=== PATIENT | male | born 1975 | race Caucasian/White ===

== ENCOUNTER 2018-01-19 15:49 | Observation (INO) | payer BC ==
[~2018-01-19] VITALS: Ht 185.4 cm; Wt 136.1 kg
[2018-01-19] VITALS (10 sets, daily range): BP systolic 151–163; BP diastolic 81–107; PULSE 73–109; RESP 16–20; TEMP 97.1–98.1; O2SAT 96–97
[2018-01-19] MEDS ORDERED: SODIUM CHLORIDE 0.9% FLUSH 10 ML FLUSH IVF PRN (16:15)
[2018-01-19] MEDS ORDERED: CITA20TA4 PO (16:18)
[2018-01-19] MEDS ORDERED: OMEP40CA2 PO (16:18)
--- NOTE | 2018-01-19 16:28 | PD ---
HPI Chief Complaint: GI Complaint Time Seen by Provider: 16:04 Travel History International Travel<30 days: No Contact w/Intl Traveler<30days: No Traveled to known affect area: No History of Present Illness HPI Patient was seen and examined in the presence of a nurse at all times This is a 42-year-old male with no known past medical history who presents with multiple complaints. He states that about 4 days ago, he developed nausea and emesis. He did have maroon looking blood in his emesis. His last bout of emesis was 2 days ago. He also noted some bright red blood per rectum that was on the outside of the stool. This has not happened since yesterday. He states that he had crampy mid abdominal pain. He also states that over the last 3-4 days, he has had intermittent substernal chest tightness. He gets associated dyspnea and diaphoresis with it. He states that this is separate from his abdominal pain and does not occur when he is vomiting. He had an episode when he went to see his primary physician today and they referred him to the emergency department. He did have an EKG performed at the primary care physician's office. He states that he had been otherwise well without fever, chills, cough, congestion. No lower extremity edema or calf pain. No prior treatment. He states that he has mild chest tightness at this time. No difficulty breathing. PFSH Past Medical History Depression: Yes GERD: Yes Tetanus Vaccination: > 5 Years Influenza Vaccination: No Past Surgical History Tonsillectomy: Yes Social History Alcohol Use: Yes (4 DRINKS NIGHTLY) Tobacco Use: No Substance Use: No Allergies-Medications (Allergen,Severity, Reaction): Coded Allergies: No Known Allergies (Unverified , 01/19/18) Reported Meds & Prescriptions Reported Meds & Active Scripts Active Reported Citalopram (Citalopram Hydrobromide) 20 Mg Tab 20 Mg PO DAILY Omeprazole 40 Mg Cap 40 Mg PO DAILY Review of Systems Except as stated in HPI: all other systems reviewed are Neg Physical Exam Narrative GENERAL: Alert, well nourished, well appearing patient resting on the bed in no acute distress. Vital Signs reviewed SKIN: Focused skin assessment warm/dry. HEAD: Atraumatic. Normocephalic. EYES: Pupils equal and round. No scleral icterus. No injection or drainage. ENT: No nasal bleeding or discharge. Mucous membranes pink and moist. NECK: Trachea midline. No JVD. Spontaneous, painless full range of motion with no meningismus CARDIOVASCULAR: Regular rate and rhythm. No murmur appreciated. Extremities warm and well perfused with bounding peripheral pulses RESPIRATORY: No accessory muscle use. Clear to auscultation. Breath sounds equal bilaterally. Breathing easily and speaking in full sentences GASTROINTESTINAL: Abdomen soft, non-tender, nondistended. Normal bowel sounds. No rigid, rebound, guarding. Rectal exam reveals normal tone, no obvious masses , light lewis stool. Heme-negative MUSCULOSKELETAL: No obvious deformities. No clubbing. No cyanosis. No edema. Compartments are soft NEUROLOGICAL: Awake and alert. No obvious cranial nerve deficits. Motor grossly within normal limits. Normal speech. Sensation intact. Normal gait PSYCHIATRIC: Appropriate mood and affect; insight and judgment normal. Data Data Last Documented VS Vital Signs Date Time Temp Pulse Resp B/P (MAP) Pulse Ox O2 Delivery O2 Flow Rate FiO2 01/19/18 19:05 86 16 151/81 (104) 97 Room Air 01/19/18 16:00 98.1 Orders Orders Electrocardiogram (01/19/18 16:15) Ckmb (Isoenzyme) Profile (01/19/18 16:15) Complete Blood Count With Diff (01/19/18 16:15) Comprehensive Metabolic Panel (01/19/18 16:15) Magnesium (Mg) (01/19/18 16:15) Prothrombin Time / Inr (Pt) (01/19/18 16:15) Act Partial Throm Time (Ptt) (01/19/18 16:15) Troponin I (01/19/18 16:15) Lipase (01/19/18 16:15) Ecg Monitoring (01/19/18 16:15) Iv Access Insert/Monitor (01/19/18 16:15) Oximetry (01/19/18 16:15) Sodium Chloride 0.9% Flush (Ns Flush) (01/19/18 16:15) Chest, Pa & Lat (01/19/18 16:15) Ct Abd/Pel W Iv Contrast(Rout) (01/19/18 16:15) Aspirin Chew (Aspirin Chew) (01/19/18 16:30) Nitroglycerin Sl (Nitrostat Sl) (01/19/18 16:30) CKMB (01/19/18 16:25) CKMB% (01/19/18 16:25) Iohexol 350 Inj (Omnipaque 350 Inj) (01/19/18 17:28) Us Abdomen Gallbladder (01/19/18 ) Pantoprazole Inj (Protonix Inj) (01/19/18 19:30) Admit Order (Ed Use Only) (01/19/18 20:08) Labs Laboratory Tests Test 01/19/18 16:25 White Blood Count 10.7 TH/MM3 Red Blood Count 4.93 MIL/MM3 Hemoglobin 16.2 GM/DL Hematocrit 46.8 % Mean Corpuscular Volume 95.0 FL Mean Corpuscular Hemoglobin 32.9 PG Mean Corpuscular Hemoglobin Concent 34.6 % Red Cell Distribution Width 12.9 % Platelet Count 254 TH/MM3 Mean Platelet Volume 7.6 FL Neutrophils (%) (Auto) 78.6 % Lymphocytes (%) (Auto) 13.0 % Monocytes (%) (Auto) 6.8 % Eosinophils (%) (Auto) 0.9 % Basophils (%) (Auto) 0.7 % Neutrophils # (Auto) 8.4 TH/MM3 Lymphocytes # (Auto) 1.4 TH/MM3 Monocytes # (Auto) 0.7 TH/MM3 Eosinophils # (Auto) 0.1 TH/MM3 Basophils # (Auto) 0.1 TH/MM3 CBC Comment DIFF FINAL Differential Comment Prothrombin Time 11.7 SEC Prothromb Time International Ratio 1.2 RATIO Activated Partial Thromboplast Time 25.0 SEC Blood Urea Nitrogen 10 MG/DL Creatinine 0.99 MG/DL Random Glucose 120 MG/DL Total Protein 8.6 GM/DL Albumin 4.0 GM/DL Calcium Level 9.3 MG/DL Magnesium Level 1.7 MG/DL Alkaline Phosphatase 118 U/L Aspartate Amino Transf (AST/SGOT) 137 U/L Alanine Aminotransferase (ALT/SGPT) 131 U/L Total Bilirubin 3.4 MG/DL Sodium Level 137 MEQ/L Potassium Level 3.2 MEQ/L Chloride Level 99 MEQ/L Carbon Dioxide Level 28.7 MEQ/L Anion Gap 9 MEQ/L Estimat Glomerular Filtration Rate 84 ML/MIN Total Creatine Kinase 107 U/L Creatine Kinase MB LESS THAN 0.5 NG/ML Troponin I LESS THAN 0.02 NG/ML Lipase 125 U/L MDM Medical Decision Making Medical Screen Exam Complete: Yes Emergency Medical Condition: Yes Medical Record Reviewed: Yes Interpretation(s) EKG performed at 16:17 shows sinus rhythm with a rate of 86. LVH. There is T- wave inversion in lateral leads. EKG was repeated at 16:41 and is unchanged. Last 24 hours Impressions Chest X-Ray 01/19/18 1615 Signed Impressions: Service Date/Time: January 16:47 - CONCLUSION: No acute disease. Carlyle Faith MD Abdomen/Pelvis CT 01/19/18 1615 Signed Impressions: Service Date/Time: January 17:19 - CONCLUSION: Normal examination. Alcon Barclay MD Gall Bladder Ultrasound 01/19/18 0000 Signed Impressions: Service Date/Time: January 18:40 - CONCLUSION: Enlarged fatty liver. Poor visualization of the pancreas due to shadowing bowel gas. Delfin Schuler MD Laboratory Tests Test 01/19/18 16:25 White Blood Count 10.7 TH/MM3 Red Blood Count 4.93 MIL/MM3 Hemoglobin 16.2 GM/DL Hematocrit 46.8 % Mean Corpuscular Volume 95.0 FL Mean Corpuscular Hemoglobin 32.9 PG Mean Corpuscular Hemoglobin Concent 34.6 % Red Cell Distribution Width 12.9 % Platelet Count 254 TH/MM3 Mean Platelet Volume 7.6 FL Neutrophils (%) (Auto) 78.6 % Lymphocytes (%) (Auto) 13.0 % Monocytes (%) (Auto) 6.8 % Eosinophils (%) (Auto) 0.9 % Basophils (%) (Auto) 0.7 % Neutrophils # (Auto) 8.4 TH/MM3 Lymphocytes # (Auto) 1.4 TH/MM3 Monocytes # (Auto) 0.7 TH/MM3 Eosinophils # (Auto) 0.1 TH/MM3 Basophils # (Auto) 0.1 TH/MM3 CBC Comment DIFF FINAL Differential Comment Prothrombin Time 11.7 SEC Prothromb Time International Ratio 1.2 RATIO Activated Partial Thromboplast Time 25.0 SEC Blood Urea Nitrogen 10 MG/DL Creatinine 0.99 MG/DL Random Glucose 120 MG/DL Total Protein 8.6 GM/DL Albumin 4.0 GM/DL Calcium Level 9.3 MG/DL Magnesium Level 1.7 MG/DL Alkaline Phosphatase 118 U/L Aspartate Amino Transf (AST/SGOT) 137 U/L Alanine Aminotransferase (ALT/SGPT) 131 U/L Total Bilirubin 3.4 MG/DL Sodium Level 137 MEQ/L Potassium Level 3.2 MEQ/L Chloride Level 99 MEQ/L Carbon Dioxide Level 28.7 MEQ/L Anion Gap 9 MEQ/L Estimat Glomerular Filtration Rate 84 ML/MIN Total Creatine Kinase 107 U/L Creatine Kinase MB LESS THAN 0.5 NG/ML Troponin I LESS THAN 0.02 NG/ML Lipase 125 U/L Differential Diagnosis Gastritis, peptic ulcer, Chrissy-Abrams tear, internal hemorrhoids, bowel obstruction, liver disease, unstable angina, musculoskeletal pain Narrative Course Patient was placed on the vascular surgeon. IV access was established. EKG showed T-wave inversion in the lateral leads. Repeat EKG was unchanged. We do not have a prior EKG to compare to. First troponin is normal. Patient had been having episodes of chest tightness with diaphoresis. Therefore, I felt that the benefit of aspirin outweighed the risk as he is heme-negative on my exam. He was given a nitroglycerin with resolution of pain. His labs reveal acute hepatic insufficiency. I am concerned regarding the patient's episode of chest pains but also am concerned about his hepatic insufficiency. Plan for admission for further evaluation and care. [facility] Point of Care Internal Pos. & Neg. Controls: Passed Fecal Specimen Occult Blood: Negative Physician Communication Physician Communication 8:15 PM: Spoke with the admitting hospitalist Diagnosis Primary Impression: Acute chest pain Additional Impression: Hepatic insufficiency Admitting Information Admitting Physician Requests: Randa Scott MD Jan 19, 2018 16:28
[2018-01-19] MEDS ORDERED: ASPIRIN 81 MG CHEW TAB PO ONE (16:30)
[2018-01-19] MEDS ORDERED: NITROGLYCERIN 0.4 MG SL 25 TABS/BTL SL ONE (16:30)
[2018-01-19 16:35] LABS: AUTOMATED NEUTROPHIL # 8.4 TH/MM3 (1.8-7.7); BASOPHIL # 0.1 TH/MM3 (0-0.2); BASOPHIL % 0.7 % (0.0-2.0); EOSINOPHIL # 0.1 TH/MM3 (0-0.4); EOSINOPHIL % 0.9 % (0.0-4.0); HEMATOCRIT 46.8 % (39.0-51.0); HEMOGLOBIN 16.2 GM/DL (13.0-17.0); LYMPHOCYTE # 1.4 TH/MM3 (1.0-4.8); MEAN CORPUSCULAR HEMOGLOBIN 32.9 PG (27.0-34.0); MEAN CORPUSCULAR HGB CONC 34.6 % (32.0-36.0); MEAN PLATELET VOLUME 7.6 FL (7.0-11.0); MONO % 6.8 % (0.0-8.0); MONOCYTE # 0.7 TH/MM3 (0-0.9); NEUT % 78.6 % (16.0-70.0); PLATELET COUNT 254 TH/MM3 (150-450); RED BLOOD COUNT 4.93 MIL/MM3 (4.50-5.90); RED CELL DISTRIBUTION WIDTH 12.9 % (11.6-17.2); WHITE BLOOD COUNT 10.7 TH/MM3 (4.0-11.0)
[2018-01-19 16:49] LABS: CHLORIDE 99 MEQ/L (98-107); SODIUM (NA) 137 MEQ/L (136-145)
[2018-01-19 16:52] LABS: CALCIUM 9.3 MG/DL (8.5-10.1)
[2018-01-19 16:53] LABS: BICARBONATE 28.7 MEQ/L (21.0-32.0); BLOOD UREA NITROGEN 10 MG/DL (7-18); GLUCOSE,RANDOM 120 MG/DL (74-106); MAGNESIUM 1.7 MG/DL (1.5-2.5)
[2018-01-19 16:56] LABS: ALT (GPT) 131 U/L (12-78); AST (GOT) 137 U/L (15-37); CREATININE 0.99 MG/DL (0.60-1.30); GLOMERULAR FILTRATION RATE 84 ML/MIN (>89)
[2018-01-19 16:57] LABS: TOTAL BILIRUBIN ADULT 3.4 MG/DL (0.2-1.0)
[2018-01-19 16:58] LABS: TOTAL PROTEIN 8.6 GM/DL (6.4-8.2)
[2018-01-19 16:59] LABS: ALKALINE PHOSPHATASE 118 U/L (45-117)
[2018-01-19 17:01] LABS: TROPONIN I LESS THAN 0.02 NG/ML (0.02-0.05)
[2018-01-19 17:04] LABS: INTERNATIONAL NORMALIZED RATIO 1.2 RATIO; PROTHROMBIN TIME - PATIENT 11.7 SEC (9.8-11.6)
--- NOTE | 2018-01-19 17:12 | RADRPT ---
EXAM DATE/TIME: 01/19/2018 16:47 [facility] COMPARISON: No previous studies available for comparison. INDICATIONS : Chest pain and vomitting blood. MEDICAL HISTORY : None. SURGICAL HISTORY : None. ENCOUNTER: Initial ACUITY: 4 - 6 days PAIN SCORE: 3/10 LOCATION: Bilateral chest FINDINGS: PA and lateral views of the chest demonstrate the lungs to be symmetrically aerated without evidence of mass, infiltrate or effusion. The cardiomediastinal contours are unremarkable. Osseous structure s are intact. CONCLUSION: No acute disease. Carlyle Faith MD on January 19, 2018 at 17:11 Board Certified Radiologist. This report was verified electronically.
[2018-01-19] MEDS ORDERED: IOHEXOL 350 MG/ML 10 ML VIAL (for RAD DIAG) IVCONTRAST ONE (17:28)
--- NOTE | 2018-01-19 17:37 | RADRPT ---
EXAM DATE/TIME: 01/19/2018 17:19 [facility] COMPARISON: No previous studies available for comparison. INDICATIONS : Periumbilical pain. Nausea. Hematemesis. Rectal bleeding. IV CONTRAST: 85 cc Omnipaque 350 (iohexol) IV ORAL CONTRAST: No oral contrast ingested. RADIATION DOSE: 22.38 CTDIvol (mGy) MEDICAL HISTORY : Gastroesophageal reflux disease. SURGICAL HISTORY : None. ENCOUNTER: Initial ACUITY: 4 - 6 days PAIN SCALE: 4/10 LOCATION: Periumbilical. TECHNIQUE: Volumetric scanning of the abdomen and pelvis was performed. Using automated exposure control and ad justment of the mA and/or kV according to patient size, radiation dose was kept as low as reasonably achievable to obtain optimal diagnostic quality images. DICOM format image data is available electro nically for review and comparison. FINDINGS: LOWER LUNGS: The visualized lower lungs are clear. LIVER: Homogeneous density without lesion. There is no dilation of the biliary tree. No calcified gallston es. SPLEEN: Normal size without lesion. PANCREAS: Within normal limits. KIDNEYS: Normal in size and shape. There is no mass, stone or hydronephrosis. ADRENAL GLANDS: Within normal limits. VASCULAR: There is no aortic aneurysm. BOWEL/MESENTERY: The stomach, small bowel, and colon demonstrate no acute abnormality. There is no free intraperitone al air or fluid. ABDOMINAL WALL: Within normal limits. RETROPERITONEUM: There is no lymphadenopathy. BLADDER: No wall thickening or mass. REPRODUCTIVE: Within normal limits. INGUINAL: There is no lymphadenopathy or hernia. MUSCULOSKELETAL: Within normal limits for patient age. CONCLUSION: Normal examination. Alcon Barclay MD on January 19, 2018 at 17:36 Board Certified Radiologist. This report was verified electronically.
[2018-01-19] MEDS ORDERED: PANTOPRAZOLE SODIUM 40 MG VIAL IVP ONE (19:30)
--- NOTE | 2018-01-19 19:35 | RADRPT ---
EXAM DATE/TIME: 01/19/2018 18:40 [facility] COMPARISON: No previous studies available for comparison. INDICATIONS : Right upper quadrant pain. MEDICAL HISTORY : Gastroesophageal reflux disease. Depression. Alchohol use. SURGICAL HISTORY : Tonsillectomy. ENCOUNTER: Initial ACUITY: 1 day PAIN SCORE: 2/10 LOCATION: Right upper quadrant MEASUREMENTS: LIVER: 19.0 cm length COMMON DUCT: Non-visualized RIGHT KIDNEY: 12.0 x 5.3 x 6.4 cm FINDINGS: LIVER: The liver is enlarged and demonstrates diffuse fatty infiltration. No focal hepatic mass or biliary d uctal dilatation is noted. Hepatopetal flow is noted within the portal vein. CBD: No intraluminal mass or stone visualized. GALLBLADDER: Contains no stones, demonstrates no wall thickening or pericholecystic fluid. PANCREAS: There is poor visualization of the pancreas due to shadowing bowel gas. RIGHT KIDNEY: No evidence of hydronephrosis, stone, or mass. CONCLUSION: Enlarged fatty liver. Poor visualization of the pancreas due to shadowing bowel gas. Delfin Schuler MD on January 19, 2018 at 19:32 Board Certified Radiologist. This report was verified electronically.
[2018-01-19] MEDS ORDERED: SODIUM CHLOR 0.9% 1000 ML INJ 1,000 ML IV SCH (20:08)
[2018-01-19] MEDS ORDERED: ONDANSETRON HCL 4 MG/2 ML VIAL IV PUSH PRN (20:15)
[2018-01-19] MEDS ORDERED: SODIUM CHLORIDE 0.9% FLUSH 10 ML FLUSH IV FLUSH PRN (20:15)
[2018-01-19] MEDS ORDERED: NITROGLYCERIN 0.4 MG SL 25 TABS/BTL SL PRN (20:15)
[2018-01-19 20:51] LABS: TROPONIN I LESS THAN 0.02 NG/ML (0.02-0.05)
[2018-01-19] MEDS: SODIUM CHLORIDE 0.9% FLUSH 10 ML FLUSH IV FLUSH SCH (21:00)
[2018-01-19] MEDS ORDERED: POTASSIUM CHLORIDE 10 MEQ CONTROLLED RELEASE TAB PO ONE (21:00)
[2018-01-19] MEDS: FAMOTIDINE 20 MG TAB PO SCH (21:45)
[2018-01-19 23:53] LABS: TROPONIN I LESS THAN 0.02 NG/ML (0.02-0.05)
[2018-01-20] VITALS: BP 160/108; PULSE 71; RESP 20; TEMP 97.2; O2SAT 97
[2018-01-20] MEDS ORDERED: ENALAPRILAT 1.25 MG/ML VIAL IV PUSH PRN (00:30)
[2018-01-20 04:00] VITALS: BP 142/100; PULSE 76; RESP 20; TEMP 96.6; O2SAT 97
[2018-01-20 06:44] LABS: CHLORIDE 100 MEQ/L (98-107); SODIUM (NA) 136 MEQ/L (136-145)
[2018-01-20 06:58] LABS: ALBUMIN 3.5 GM/DL (3.4-5.0); ALKALINE PHOSPHATASE 97 U/L (45-117); ALT (GPT) 118 U/L (12-78); AST (GOT) 141 U/L (15-37); BLOOD UREA NITROGEN 11 MG/DL (7-18); CALCIUM 8.5 MG/DL (8.5-10.1); CREATININE 0.85 MG/DL (0.60-1.30); GLOMERULAR FILTRATION RATE 100 ML/MIN (>89); GLUCOSE,RANDOM 105 MG/DL (74-106); TOTAL BILIRUBIN ADULT 3.2 MG/DL (0.2-1.0); TOTAL PROTEIN 7.4 GM/DL (6.4-8.2)
[2018-01-20 08:00] VITALS: BP 152/100; PULSE 65; RESP 20; TEMP 96.5; O2SAT 95
[2018-01-20 08:29] VITALS: O2SAT 95
[2018-01-20 10:17] VITALS: BP 151/95
[2018-01-20] MEDS: SODIUM CHLORIDE 0.9% FLUSH 10 ML FLUSH IV FLUSH SCH (10:41)
[2018-01-20] MEDS: FAMOTIDINE 20 MG TAB PO SCH (10:44)
[2018-01-20 11:21] LABS: HEPATITIS A AB IGM NEGATIVE (NEGATIVE); HEPATITIS B CORE AB IGM NEGATIVE (NEGATIVE); HEPATITIS B SURFACE ANTIGEN NEGATIVE (NEGATIVE); HEPATITIS C AB IgG NEGATIVE (NEGATIVE)
[2018-01-20 11:37] LABS: AUTOMATED NEUTROPHIL # 6.4 TH/MM3 (1.8-7.7); BASOPHIL # 0.1 TH/MM3 (0-0.2); EOSINOPHIL # 0.2 TH/MM3 (0-0.4); EOSINOPHIL % 2.4 % (0.0-4.0); HEMATOCRIT 41.5 % (39.0-51.0); HEMOGLOBIN 14.7 GM/DL (13.0-17.0); LYMPH % 15.4 % (9.0-44.0); LYMPHOCYTE # 1.3 TH/MM3 (1.0-4.8); MEAN CORPUSCULAR HGB CONC 35.5 % (32.0-36.0); MEAN PLATELET VOLUME 8.1 FL (7.0-11.0); MONO % 6.9 % (0.0-8.0); MONOCYTE # 0.6 TH/MM3 (0-0.9); NEUT % 74.3 % (16.0-70.0); PLATELET COUNT 188 TH/MM3 (150-450); RED BLOOD COUNT 4.32 MIL/MM3 (4.50-5.90); RED CELL DISTRIBUTION WIDTH 13.6 % (11.6-17.2); WHITE BLOOD COUNT 8.6 TH/MM3 (4.0-11.0)
--- NOTE | 2018-01-20 11:41 | EKG ---
Date Performed: 01/19/2018 Time Performed: 16:41:28 PTAGE: 42 years EKG: Sinus rhythm WITH SHORT NC INTERVAL VOLTAGE CRITERIA FOR LVH ST DEVIATION AND MODERATE T-WAVE ABNORMALITY, CONSID ER ANTEROLATERAL ISCHEMIA ST DEVIATION AND MODERATE T-WAVE ABNORMALITY, CONSIDER INFERIOR ISCHEMIA AB NORMAL ECG No prior for comparison DOCTOR: Marie Celestin Interpretating Date/Time 01/20/2018 11:40:01
--- NOTE | 2018-01-20 11:41 | EKG ---
Date Performed: 01/19/2018 Time Performed: 20:20:55 PTAGE: 42 years EKG: Sinus rhythm VOLTAGE CRITERIA FOR LVH MODERATE T-WAVE ABNORMALITY, CONSIDER ANTEROLATERAL ISCHEMIA ABNORMAL ECG PREVIOUS TRACING : 01/19/2018 16.41 When compared to the prior EKG, the ST depression is a cindi le less pronounced. DOCTOR: Marie Celestin Interpretating Date/Time 01/20/2018 11:40:18
--- NOTE | 2018-01-20 11:42 | EKG ---
Date Performed: 01/19/2018 Time Performed: 22:43:30 PTAGE: 42 years EKG: Sinus rhythm VOLTAGE CRITERIA FOR LVH NONSPECIFIC T-WAVE ABNORMALITY ABNORMAL ECG PREVIOUS TRACING : 01/19/2018 20.20 Since the prior tracing, there has been no significant cortez DOCTOR: Marie Celestin Interpretating Date/Time 01/20/2018 11:40:27
[2018-01-20 12:00] VITALS: BP 133/94; PULSE 78; RESP 20; TEMP 96.9; O2SAT 98
--- NOTE | 2018-01-20 12:59 | HHI.HP ---
[facility] Service [facility] Primary Care Physician Isabella Payan, DREW Admission Diagnosis Acute chest pain, Hepatic Insufficiency Diagnoses: Chief Complaint: Abdominal pain with nausea and vomiting Travel History International Travel<30 Days: No Contact w/Intl Traveler <30 Da: No Traveled to Known Affected Are: No History of Present Illness Patient is a very pleasant 42-year-old woman with a long-standing history of alcohol dependency. He drinks alcohol nightly. He had some abdominal discomfort and presented to the emergency room after his new primary doctor recommended he come to the hospital with complaints of one episode of painless bleeding which has since resolved. His hemoglobin is 16 and repeat hemoglobin is 14. Bleeding and abdominal discomfort has resolved. Patient has no fevers or chills. He has not had any further abdominal discomfort. He has admitted quite a bit of alcohol every night. Says he had endoscopy done over 10 years ago without any findings. He has not lost any weight. He has not had any hematemesis. Patient also was unsure if it was chest or belly but noted that the discomfort resolved with proton pump inhibitor. He did run out of this and saw his primary care doctor who referred him to the emergency room. Patient had EKG was unremarkable as well as cardiac enzymes which were unremarkable. At this time the patient's symptoms have resolved. He will benefit from outpatient follow-up by gastroenterology and he is agreeable to this plan. Of note his LFTs are elevated including his bilirubin and transaminitis. Patient has fatty liver on exam with admitted alcohol consumption. Review of Systems Constitutional: DENIES: Diaphoretic episodes, Fatigue, Fever, Weight gain, Weight loss, Chills, Dizziness, Change in appetite, Night Sweats Endocrine: DENIES: Heat/cold intolerance, Polydipsia, Polyuria, Polyphagia Eyes: DENIES: Blurred vision, Diplopia, Eye inflammation, Eye pain, Vision loss , Photosensitivity, Double Vision Ears, nose, mouth, throat: DENIES: Tinnitus, Hearing loss, Vertigo, Nasal discharge, Oral lesions, Throat pain, Hoarseness, Ear Pain, Running Nose, Epistaxis, Sinus Pain, Toothache, Odynophagia Respiratory: DENIES: Apneas, Cough, Snoring, Wheezing, Hemoptysis, Sputum production, Shortness of breath Cardiovascular: DENIES: Chest pain, Palpitations, Syncope, Dyspnea on Exertion , PND, Lower Extremity Edema, Orthopnea, Claudication Gastrointestinal: COMPLAINS OF: Abdominal pain, DENIES: Black stools, Bloody stools, Constipation, Diarrhea, Nausea, Vomiting, Difficulty Swallowing, Anorexia Genitourinary: DENIES: Sexual dysfunction, Urinary frequency, Urinary incontinence, Urgency, Hematuria, Dysuria, Nocturia, Penile Discharge, Testicular Pain, Testicular Swelling Musculoskeletal: DENIES: Joint pain, Muscle aches, Stiffness, Joint Swelling, Back pain, Neck pain Integumentary: DENIES: Abnormal pigmentation, Nail changes, Pruritus, Rash Hematologic/lymphatic: DENIES: Bruising, Lymphadenopathy Immunologic/allergic: DENIES: Eczema, Urticaria Neurologic: DENIES: Abnormal gait, Headache, Localized weakness, Paresthesias, Seizures, Speech Problems, Tremor, Poor Balance Psychiatric: DENIES: Anxiety, Confusion, Mood changes, Depression, Hallucinations, Agitation, Suicidal Ideation, Homicidal Ideation, Delusions Except as stated in HPI: all other systems reviewed are Neg Past Family Social History Allergies: Coded Allergies: No Known Allergies (Unverified , 01/19/18) Physical Exam Vital Signs Vital Signs Date Time Temp Pulse Resp B/P (MAP) Pulse Ox O2 Delivery O2 Flow Rate FiO2 01/20/18 10:17 151/95 (113) 01/20/18 08:29 95 21 01/20/18 08:00 65 01/20/18 08:00 96.5 65 20 152/100 (117) 95 01/20/18 04:00 96.6 76 20 142/100 (114) 97 01/20/18 00:00 97.2 71 20 160/108 (125) 97 01/19/18 23:00 73 01/19/18 22:12 97 21 01/19/18 21:55 84 01/19/18 21:15 97.1 88 20 156/96 (116) 96 01/19/18 21:12 01/19/18 20:46 80 16 160/96 (117) 97 Room Air 01/19/18 19:05 86 16 151/81 (104) 97 Room Air 01/19/18 18:59 83 16 151/81 (104) 96 Room Air 01/19/18 16:39 109 16 156/86 (109) 96 Room Air 01/19/18 16:28 96 Room Air 01/19/18 16:00 98.1 94 16 163/107 (125) 96 Physical Exam GENERAL: This is a well-nourished, well-developed patient, in no apparent distress. SKIN: No rashes, ecchymoses or lesions. Cool and dry. HEAD: Atraumatic. Normocephalic. No temporal or scalp tenderness. EYES: Pupils equal round and reactive. Extraocular motions intact. No scleral icterus. No injection or drainage. ENT: Nose without bleeding, purulent drainage or septal hematoma. Throat without erythema, tonsillar hypertrophy or exudate. Uvula midline. Airway patent. NECK: Trachea midline. No JVD or lymphadenopathy. Supple, nontender, no meningeal signs. CARDIOVASCULAR: Regular rate and rhythm without murmurs, gallops, or rubs. RESPIRATORY: Clear to auscultation. Breath sounds equal bilaterally. No wheezes , rales, or rhonchi. GASTROINTESTINAL: Abdomen soft, non-tender, nondistended. No hepato-splenomegaly , or palpable masses. No guarding. MUSCULOSKELETAL: Extremities without clubbing, cyanosis, or edema. No joint tenderness, effusion, or edema noted. No calf tenderness. Negative Homans sign bilaterally. NEUROLOGICAL: Awake and alert. Cranial nerves II through XII intact. Motor and sensory grossly within normal limits. Five out of 5 muscle strength in all muscle groups. Normal speech. Laboratory Laboratory Tests Test 01/19/18 16:25 01/19/18 20:20 01/19/18 23:20 01/20/18 05:30 White Blood Count 10.7 8.6 Red Blood Count 4.93 4.32 Hemoglobin 16.2 14.7 Hematocrit 46.8 41.5 Mean Corpuscular Volume 95.0 96.0 Mean Corpuscular Hemoglobin 32.9 34.0 Mean Corpuscular Hemoglobin Concent 34.6 35.5 Red Cell Distribution Width 12.9 13.6 Platelet Count 254 188 Mean Platelet Volume 7.6 8.1 Neutrophils (%) (Auto) 78.6 74.3 Lymphocytes (%) (Auto) 13.0 15.4 Monocytes (%) (Auto) 6.8 6.9 Eosinophils (%) (Auto) 0.9 2.4 Basophils (%) (Auto) 0.7 1.0 Neutrophils # (Auto) 8.4 6.4 Lymphocytes # (Auto) 1.4 1.3 Monocytes # (Auto) 0.7 0.6 Eosinophils # (Auto) 0.1 0.2 Basophils # (Auto) 0.1 0.1 CBC Comment DIFF FINAL DIFF FINAL Differential Comment Prothrombin Time 11.7 Prothromb Time International Ratio 1.2 Activated Partial Thromboplast Time 25.0 Blood Urea Nitrogen 10 Creatinine 0.99 Random Glucose 120 Total Protein 8.6 Albumin 4.0 Calcium Level 9.3 Magnesium Level 1.7 Alkaline Phosphatase 118 Aspartate Amino Transf (AST/SGOT) 137 Alanine Aminotransferase (ALT/SGPT) 131 Total Bilirubin 3.4 Sodium Level 137 Potassium Level 3.2 Chloride Level 99 Carbon Dioxide Level 28.7 Anion Gap 9 Estimat Glomerular Filtration Rate 84 Total Creatine Kinase 107 92 91 Creatine Kinase MB LESS THAN 0.5 Troponin I LESS THAN 0.02 LESS THAN 0.02 LESS THAN 0.02 Lipase 125 Test 01/20/18 05:50 Blood Urea Nitrogen 11 Creatinine 0.85 Random Glucose 105 Total Protein 7.4 Albumin 3.5 Calcium Level 8.5 Alkaline Phosphatase 97 Aspartate Amino Transf (AST/SGOT) 141 Alanine Aminotransferase (ALT/SGPT) 118 Total Bilirubin 3.2 Sodium Level 136 Potassium Level 3.1 Chloride Level 100 Carbon Dioxide Level 29.0 Anion Gap 7 Estimat Glomerular Filtration Rate 100 Result Diagram: 01/20/18 0530 01/20/18 0550 Imaging Last Impressions Chest X-Ray 01/19/18 1615 Signed Impressions: Service Date/Time: January 16:47 - CONCLUSION: No acute disease. Carlyle Faith MD Abdomen/Pelvis CT 01/19/18 1615 Signed Impressions: Service Date/Time: January 17:19 - CONCLUSION: Normal examination. Alcon Barclay MD Gall Bladder Ultrasound 01/19/18 0000 Signed Impressions: Service Date/Time: January 18:40 - CONCLUSION: Enlarged fatty liver. Poor visualization of the pancreas due to shadowing bowel gas. MD Meaghan Lopez VTE Risk Assessment Capcecilia VTE Risk Assessment: Mod/High Risk (score >= 2) Caprini Risk Assessment Model Point Value = 1 Point Value = 2 Point Value = 3 Point Value = 5 Age 41-60 Minor surgery BMI > 25 kg/m2 Swollen legs Varicose veins or History of unexplained or recurrent spontaneous Oral contraceptives or hormone replacement Sepsis (< 1 month) Serious lung disease, including pneumonia (< 1 month) Abnormal pulmonary function Acute myocardial infarction Congestive heart failure (< 1 month) History of inflammatory bowel disease Medical patient at bed rest Age 61-74 Arthroscopic surgery Major open surgery (> 45 min) Laparoscopic surgery (> 45 min) Malignancy Confined to bed (> 72 hours) Immobilizing plaster cast Central venous access Age >= 75 History of VTE Family history of VTE Factor V Leiden Prothrombin [id number] Lupus anticoagulant Anticardiolipin antibodies Elevated serum homocysteine Heparin-induced thrombocytopenia Other congenital or acquired thrombophilia Stroke (< 1 month) Elective arthroplasty Hip, pelvis, or leg fracture Acute spinal cord injury (< 1 month) Prophylaxis Regimen Total Risk Factor Score Risk Level Prophylaxis Regimen 0-1 Low Early ambulation 2 Moderate Order ONE of the following: *Sequential Compression Device (SCD) *Heparin 5000 units SQ BID 3-4 Higher Order ONE of the following medications: *Heparin 5000 units SQ TID *Enoxaparin/Lovenox 40 mg SQ daily (WT < 150 kg, CrCl > 30 mL/min) *Enoxaparin/Lovenox 30 mg SQ daily (WT < 150 kg, CrCl > 10-29 mL/min) *Enoxaparin/Lovenox 30 mg SQ BID (WT < 150 kg, CrCl > 30 mL/min) AND/OR *Sequential Compression Device (SCD) 5 or more Highest Order ONE of the following medications: *Heparin 5000 units SQ TID (Preferred with Epidurals) *Enoxaparin/Lovenox 40 mg SQ daily (WT < 150 kg, CrCl > 30 mL/min) *Enoxaparin/Lovenox 30 mg SQ daily (WT < 150 kg, CrCl > 10-29 mL/min) *Enoxaparin/Lovenox 30 mg SQ BID (WT < 150 kg, CrCl > 30 mL/min) AND *Sequential Compression Device (SCD) Assessment and Plan Problem List: (1) Abdominal pain ICD Code: R10.9 - Unspecified abdominal pain Plan: Etiology unclear, may be related to dyspepsia versus gastritis We will continue with proton pump inhibitor as well as outpatient referral to GI in this patient with stable hemoglobin and resolve symptoms (2) Hepatic insufficiency ICD Code: K72.90 - Hepatic failure, unspecified without coma Status: Acute Plan: Patient seen and evaluated. Patient with long history of alcohol dependency Patient encouraged in his new choice for abstinence Follow-up hepatitis panel as outpatient Code Status Full code Discussed Condition With Discharge home Activity unrestricted Follow-up with primary care doctor Avoid alcohol Almaz Arevalo MD Jan 20, 2018 12:59
[2018-01-20] MEDS ORDERED: PANT40TA3 PO (13:00)
--- NOTE | 2018-01-20 13:00 | HHI.DCPOC ---
Discharge Care Plan Diagnosis: (1) Hepatic insufficiency (2) Abdominal pain Additional Problems Avoid alcohol Follow-up labs with primary care physician Goals to Promote Your Health * To prevent worsening of your condition and complications * To maintain your health at the optimal level Directions to Meet Your Goals Take your medications as prescribed Follow your dietary instruction Follow activity as directed Keep your appointments as scheduled Take your immunizations and boosters as scheduled If your symptoms worsen call your PCP, if no PCP go to Urgent Care Center or Emergency Room Smoking is Dangerous to Your Health. Avoid second hand smoke Call the 24-hour hour crisis hotline for domestic abuse at Almaz Arevalo MD Jan 20, 2018 13:00
[2018-01-20] MEDS ORDERED: amLODIPine BESYLATE 5 MG TAB PO ONE (13:10)
[2018-01-20] MEDS ORDERED: AMLO10TA2 PO (13:58)
== END 2018-01-20 14:10 | disposition home or self-care (01) ==
LOC: PHED 15:49 → PHEDA 20:09 → PH3B 21:11
PROVIDERS: ADMIT Hospitalist; ATTEND Hospitalist
DX: R10.11 Right upper quadrant pain (principal); R10.33 Periumbilical pain; K72.90 Hepatic failure, unspecified without coma; R11.2 Nausea with vomiting, unspecified; F10.20 Alcohol dependence, uncomplicated; K76.0 Fatty (change of) liver, not elsewhere classified; R94.31 Abnormal electrocardiogram [ECG] [EKG]; K62.5 Hemorrhage of anus and rectum; R07.9 Chest pain, unspecified; R06.00 Dyspnea, unspecified; R61 Generalized hyperhidrosis; K21.9 Gastro-esophageal reflux disease without esophagitis; F32.9 Major depressive disorder, single episode, unspecified
CPT/HCPCS: 71046; 74177; 76705; 80053; 80074; 82550; 82552; 83690; 83735; 84484; 85025; 85610; 85730; 93005; 96361; 96374; 96375; 99285; C9113; G0378; J7030; Q9967

== ENCOUNTER 2018-07-05 07:24 | Inpatient (IN) ==
[2018-07-05] MEDS ORDERED: Ketorolac Inj 30 MG/ML (IVP) Vial IV.PUSH ONE (07:38)
[2018-07-05] MEDS ORDERED: Sod Chloride 0.9% Inj 1,000 ML IV.SIG ONE (07:38)
[2018-07-05 08:08] LABS: Baso # (Auto) 0.1 th/mm3 (0.0-0.2); Baso % (Auto) 0.9 % (0.0-2.0); Eos # (Auto) 0.1 th/mm3 (0.0-0.4); Eos % (Auto) 0.8 % (0.0-4.0); Hematocrit 41.2 % (39.0-51.0); Hemoglobin 14.4 gm/dL (13.0-17.0); Lymph # (Auto) 1.5 th/mm3 (1.0-4.8); Lymph % (Auto) 9.4 % (9.0-44.0); Mean Corpuscular HGB Conc 34.8 % (32.0-36.0); Mean Corpuscular Hemoglobin 31.2 pg (27.0-34.0); Mean Corpuscular Volume 89.6 fL (80.0-100.0); Mean Platelet Volume 8.4 fL (7.0-11.0); Mono # (Auto) 1.2 th/mm3 (0.0-0.9); Mono % (Auto) 7.9 % (0.0-8.0); Neut # (Auto) 12.9 th/mm3 (1.8-7.7); Platelet Count 327 th/mm3 (150-450); Red Blood Count 4.61 mil/mm3 (4.50-5.90); Red Cell Distribution Width 12.1 % (11.6-17.2); White Blood Count 15.8 th/mm3 (4.0-11.0)
[2018-07-05 08:08] LABS: Clarity,Urine Clear (Clear); Color,Urine Yellow (Yellw/Straw); Glucose,Urine (UA) Negative (Negative); Leukocyte Esterase,Urine Negative (Negative); Nitrite,Urine Negative (Negative); PH,Urine 5.5 (5.0-8.5)
[2018-07-05 08:15] LABS: Chloride 100 meq/L (98-107); Potassium 3.5 meq/L (3.5-5.1); Sodium 135 meq/L (136-145)
[2018-07-05 08:18] LABS: Calcium 8.9 mg/dL (8.5-10.1)
[2018-07-05 08:19] LABS: Albumin 3.1 g/dL (3.4-5.0); Anion Gap 6 meq/L (5-15); Blood Urea Nitrogen 13 mg/dL (7-18); Carbon Dioxide 29.3 meq/L (21.0-32.0); Glucose,Random 100 mg/dL (74-106); Lipase 121 U/L (73-393)
[2018-07-05 08:22] LABS: Alanine Aminotransferase 45 U/L (12-78); Aspartate Aminotransferase 28 U/L (15-37); Glomerular Filtration Rate 82 mL/min (>89)
[2018-07-05 08:23] LABS: Total Protein 8.1 g/dL (6.4-8.2)
[2018-07-05 08:24] LABS: Alkaline Phosphatase 119 U/L (45-117)
[2018-07-05 08:29] LABS: Bilirubin,Urine Negative (Negative)
[2018-07-05 08:31] LABS: RBC,Urine 0-3 /hpf (0-3); Squamous Epithelial Cell,Urine 0-5 /hpf (0-5); WBC,Urine 0-5 /hpf (0-5)
--- NOTE | 2018-07-05 08:37 | ED ---
HPI General Chief Complaint: Abdominal Pain Stated Complaint: Abd/Pelvic Pain x 8 Days Source: patient Mode of arrival: ambulatory Limitations: no limitations History of Present Illness HPI narrative: 43-year-old male complains of pelvic pain for the past 7 or 8 days. 3 days ago the pain was severe and will complement overnight. At that point was located in the middle portion of the pelvis. He felt as though there was a knot and hip flexion on the left side seemed to worsen the pain. He has had no fever. Night sweats reported. No diarrhea or vomiting. She wonders if he might have a hernia. Pain is primarily in the region of the upper portion of the pubic bone in the suprapubic distribution with radiation to the left side. He denies trauma. No hematuria. No similar prior episodes. Related Data Home Medications Medication Instructions Recorded Confirmed omeprazole magnesium [Prilosec OTC] 20 mg PO DAILY 07/05/18 07/05/18 Allergies Allergy/AdvReac Type Severity Reaction Status Date / Time No Known Allergies Allergy Verified 07/05/18 07:26 Review of Systems ROS: all other systems reviewed are negative Constitutional Denies fever(s) PMFSH Family History Family History Other No pertinent family history Social History Social History Substance History: No History of Abuse Second Hand Smoke Exposure: No Smoking Status: Never smoker Tobacco Type: Smokeless Tobacco How Often Do You Have a Drink Containing Alcohol: Never Recent Travel in [facility] [[email or web address] within the Last 8 Weeks: No Recent Out of Country Travel within the Last 8 Weeks: No Immunization History Tetanus Immunization: Unsure Hx Influenza Vaccine This Season: No Exam Narrative Exam Narrative: GENERAL: 43-year-old male well-nourished well-developed mild physical distress SKIN: Focused skin assessment warm/dry. HEAD: Atraumatic. Normocephalic. EYES: Pupils equal and round. No scleral icterus. No injection or drainage. ENT: No nasal bleeding or discharge. Mucous membranes pink and moist. NECK: Trachea midline. No JVD. CARDIOVASCULAR: Regular rate and rhythm. No murmur appreciated. RESPIRATORY: No accessory muscle use. Clear to auscultation. Breath sounds equal bilaterally. GASTROINTESTINAL: There is no inguinal hernia on either side. No focus of tenderness about the abdomen. MUSCULOSKELETAL: No obvious deformities. No clubbing. No cyanosis. No edema. NEUROLOGICAL: Awake and alert. No obvious cranial nerve deficits. Motor grossly within normal limits. Normal speech. PSYCHIATRIC: Appropriate mood and affect; insight and judgment normal. Course Initial Documented Vital Signs Temperature 99.3 F 07/05/18 07:27 Pulse Rate 104 H 07/05/18 07:27 Respiratory Rate 18 07/05/18 07:27 Blood Pressure 153/90 H 07/05/18 07:27 Pulse Oximetry 97 07/05/18 07:27 Last Documented Vital Signs Temperature 97.0 F L 07/06/18 08:00 Pulse Rate 77 07/06/18 08:00 Respiratory Rate 22 07/06/18 08:00 Blood Pressure 128/83 07/06/18 08:00 Pulse Oximetry 96 07/06/18 08:00 Medical Decision Making MDM Narrative Medical decision making narrative: The patient has a sigmoid abscess. Case was discussed with interventional robot technician in the procedure can be done here in the ED. Antibiotics started. Case discussed with Dr. Rice. Patient is hemodynamically stable. Medical Screen Exam Complete: Yes Emergency Medical Condition: Yes Medical Records Medical records reviewed: Yes I reviewed the patient's medical records. Lab Data Lab results reviewed: Yes I reviewed the patient's lab results. Result diagrams: 07/06/18 05:50 07/06/18 05:50 Lab Results 07/05/18 07/05/18 07/05/18 Range/Units 07:55 07:57 07:57 CBC w Diff Auto diff final WBC 15.8 H (4.0-11.0) th/mm3 RBC 4.61 (4.50-5.90) mil/mm3 Hgb 14.4 (13.0-17.0) gm/dL Hct 41.2 (39.0-51.0) % MCV 89.6 (80.0-100.0) fL MCH 31.2 (27.0-34.0) pg MCHC 34.8 (32.0-36.0) % RDW 12.1 (11.6-17.2) % Plt Count 327 (150-450) th/mm3 MPV 8.4 (7.0-11.0) fL Neut % (Auto) 81.0 H (16.0-70.0) % Lymph % (Auto) 9.4 (9.0-44.0) % Gem % (Auto) 7.9 (0.0-8.0) % Eos % (Auto) 0.8 (0.0-4.0) % Baso % (Auto) 0.9 (0.0-2.0) % Neut # (Auto) 12.9 H (1.8-7.7) th/mm3 Lymph # (Auto) 1.5 (1.0-4.8) th/mm3 Gem # (Auto) 1.2 H (0.0-0.9) th/mm3 Eos # (Auto) 0.1 (0.0-0.4) th/mm3 Baso # (Auto) 0.1 (0.0-0.2) th/mm3 WBC Differential . Differential Comment . PT (9.8-11.6) sec INR Ratio APTT (24.3-30.1) sec Sodium 135 L (136-145) meq/L Potassium 3.5 (3.5-5.1) meq/L Chloride 100 (98-107) meq/L Carbon Dioxide 29.3 (21.0-32.0) meq/L Anion Gap 6 (5-15) meq/L BUN 13 (7-18) mg/dL Creatinine 1.00 (0.60-1.30) mg/dL Estimated GFR 82 L (>89) mL/min Random Glucose 100 (74-106) mg/dL Lactic Acid (0.4-2.0) mmol/L Calcium 8.9 (8.5-10.1) mg/dL Total Bilirubin 1.5 H (0.2-1.0) mg/dL AST 28 (15-37) U/L ALT 45 (12-78) U/L Alkaline Phosphatase 119 H (45-117) U/L Total Protein 8.1 (6.4-8.2) g/dL Albumin 3.1 L (3.4-5.0) g/dL Lipase 121 (73-393) U/L Ur Collection Type Clean catch Urine Color Yellow (Yellw/Straw) Urine Clarity Clear (Clear) Urine pH 5.5 (5.0-8.5) Ur Specific [place] 1.020 (1.002-1.035) Urine Protein Trace (Neg-Trace) mg/dL Urine Glucose (UA) Negative (Negative) mg/dL Urine Ketones Negative (Negative) mg/dL Urine Occult Blood Trace (Negative) Urine Nitrate Negative (Negative) Urine Bilirubin Negative (Negative) Urine Urobilinogen 4.0 H (Less than 2) mg/dL Ur Leukocyte Esterase Negative (Negative) Urine RBC 0-3 (0-3) /hpf Urine WBC 0-5 (0-5) /hpf Ur Squamous Epith Cells 0-5 (0-5) /hpf Micro UA Comment Culture not ind Urine Culture Comments Culture not ind 07/05/18 07/05/18 07/06/18 Range/Units 12:35 12:35 05:50 CBC w Diff Auto diff final WBC 10.2 (4.0-11.0) th/mm3 RBC 4.06 L (4.50-5.90) mil/mm3 Hgb 12.9 L (13.0-17.0) gm/dL Hct 37.8 L (39.0-51.0) % MCV 93.0 (80.0-100.0) fL MCH 31.9 (27.0-34.0) pg MCHC 34.3 (32.0-36.0) % RDW 11.8 (11.6-17.2) % Plt Count 278 (150-450) th/mm3 MPV 8.4 (7.0-11.0) fL Neut % (Auto) 74.2 H (16.0-70.0) % Lymph % (Auto) 13.3 (9.0-44.0) % Gem % (Auto) 10.6 H (0.0-8.0) % Eos % (Auto) 1.3 (0.0-4.0) % Baso % (Auto) 0.6 (0.0-2.0) % Neut # (Auto) 7.5 (1.8-7.7) th/mm3 Lymph # (Auto) 1.4 (1.0-4.8) th/mm3 Gem # (Auto) 1.1 H (0.0-0.9) th/mm3 Eos # (Auto) 0.1 (0.0-0.4) th/mm3 Baso # (Auto) 0.1 (0.0-0.2) th/mm3 WBC Differential . Differential Comment . PT 11.9 H (9.8-11.6) sec INR 1.2 Ratio APTT 28.1 (24.3-30.1) sec Sodium (136-145) meq/L Potassium (3.5-5.1) meq/L Chloride (98-107) meq/L Carbon Dioxide (21.0-32.0) meq/L Anion Gap (5-15) meq/L BUN (7-18) mg/dL Creatinine (0.60-1.30) mg/dL Estimated GFR (>89) mL/min Random Glucose (74-106) mg/dL Lactic Acid 0.8 (0.4-2.0) mmol/L Calcium (8.5-10.1) mg/dL Total Bilirubin (0.2-1.0) mg/dL AST (15-37) U/L ALT (12-78) U/L Alkaline Phosphatase (45-117) U/L Total Protein (6.4-8.2) g/dL Albumin (3.4-5.0) g/dL Lipase (73-393) U/L Ur Collection Type Urine Color (Yellw/Straw) Urine Clarity (Clear) Urine pH (5.0-8.5) Ur Specific [place] (1.002-1.035) Urine Protein (Neg-Trace) mg/dL Urine Glucose (UA) (Negative) mg/dL Urine Ketones (Negative) mg/dL Urine Occult Blood (Negative) Urine Nitrate (Negative) Urine Bilirubin (Negative) Urine Urobilinogen (Less than 2) mg/dL Ur Leukocyte Esterase (Negative) Urine RBC (0-3) /hpf Urine WBC (0-5) /hpf Ur Squamous Epith Cells (0-5) /hpf Micro UA Comment Urine Culture Comments 07/06/18 Range/Units 05:50 CBC w Diff WBC (4.0-11.0) th/mm3 RBC (4.50-5.90) mil/mm3 Hgb (13.0-17.0) gm/dL Hct (39.0-51.0) % MCV (80.0-100.0) fL MCH (27.0-34.0) pg MCHC (32.0-36.0) % RDW (11.6-17.2) % Plt Count (150-450) th/mm3 MPV (7.0-11.0) fL Neut % (Auto) (16.0-70.0) % Lymph % (Auto) (9.0-44.0) % Gem % (Auto) (0.0-8.0) % Eos % (Auto) (0.0-4.0) % Baso % (Auto) (0.0-2.0) % Neut # (Auto) (1.8-7.7) th/mm3 Lymph # (Auto) (1.0-4.8) th/mm3 Gem # (Auto) (0.0-0.9) th/mm3 Eos # (Auto) (0.0-0.4) th/mm3 Baso # (Auto) (0.0-0.2) th/mm3 WBC Differential Differential Comment PT (9.8-11.6) sec INR Ratio APTT (24.3-30.1) sec Sodium 137 (136-145) meq/L Potassium 3.8 (3.5-5.1) meq/L Chloride 103 (98-107) meq/L Carbon Dioxide 29.6 (21.0-32.0) meq/L Anion Gap 4 L (5-15) meq/L BUN 12 (7-18) mg/dL Creatinine 0.76 (0.60-1.30) mg/dL Estimated GFR Greater than 89 (>89) mL/min Random Glucose 99 (74-106) mg/dL Lactic Acid (0.4-2.0) mmol/L Calcium 8.6 (8.5-10.1) mg/dL Total Bilirubin 1.3 H (0.2-1.0) mg/dL AST 17 (15-37) U/L ALT 36 (12-78) U/L Alkaline Phosphatase 115 (45-117) U/L Total Protein 7.1 D (6.4-8.2) g/dL Albumin 2.8 L (3.4-5.0) g/dL Lipase (73-393) U/L Ur Collection Type Urine Color (Yellw/Straw) Urine Clarity (Clear) Urine pH (5.0-8.5) Ur Specific [place] (1.002-1.035) Urine Protein (Neg-Trace) mg/dL Urine Glucose (UA) (Negative) mg/dL Urine Ketones (Negative) mg/dL Urine Occult Blood (Negative) Urine Nitrate (Negative) Urine Bilirubin (Negative) Urine Urobilinogen (Less than 2) mg/dL Ur Leukocyte Esterase (Negative) Urine RBC (0-3) /hpf Urine WBC (0-5) /hpf Ur Squamous Epith Cells (0-5) /hpf Micro UA Comment Urine Culture Comments Imaging Data Attestation: I personally reviewed and interpreted this imaging study as follows : My impression: Inflammatory change in the pelvis noted Radiologist's impression: Abscess Drainage CT 07/05/18 00:00 CONCLUSION: 1. Uncomplicated CT guided drainage of presumed sigmoid diverticular abscess. Abdomen/Pelvis CT 07/05/18 07:38 CONCLUSION: 1. Acute proximal sigmoid diverticulitis with contained perforation and subsequent abscess formation. The abscess is percutaneously accessible for drainage. 2. 2 mm nonobstructing right renal stone. Discharge Plan Discharge Disposition Patient Disposition: 30 Still Patient Physicians Team ED Provider: Uche Cortez Primary Care Provider: Primary Care Elin Brothers Attending Provider: Eduin Rice Other Providers: Darren Upton ; Surgeons,[facility] Discharge Interventions Interventions: ED Discharge Assessment Last Done: 07/05/18 10:30 Vital Signs Last Done: 07/05/18 10:31 Status ED Status: Left Department Discharge Information Discharge Date/Time: 07/05/18 10:35
[2018-07-05] MEDS ORDERED: Ciprofloxacin 400 MG/200 ML 400 MG/200 ML PIGGYBACK IV.SIG ONE (08:47)
--- NOTE | 2018-07-05 09:11 | CT ---
EXAM DATE: 07/05/2018 8:24 AM EDT AGE/SEX: 43 years / Male INDICATIONS: Lower abdominal/pelvic pain for 8 days. CLINICAL DATA: This is the patient's subsequent encounter. Patient reports that signs and symptoms h ave been present for 1 week and indicates a pain score of 5/10. MEDICAL/SURGICAL HISTORY: None. None. RADIATION DOSE: 22.40 CTDI (mGy) COMPARISON: [facility], CT ABDOMEN & PELVIS W CONTRAST, 01/19/2018. . TECHNIQUE: Multiple contiguous axial images were obtained through the abdomen. Images were obtained using multiple row detector helical technique. Using automated exposure control and adjustment of the mA and/or kV according to patient size, radiation dose was kept as low as reasonably achievable to o btain optimal diagnostic quality images. DICOM format image data is available electronically for rev iew and comparison. FINDINGS: Lower Lungs: The visualized lower lungs are clear. Liver: The liver has a homogeneous density without space-occupying lesion. There is no dilation of th e biliary tree. Gallbladder is unremarkable. Spleen: Homogeneous density without enlargement. Pancreas: Unremarkable without mass or calcification. Kidneys: Normal in size and shape. There is a 2 mm nonobstructing right renal stone. No evidence of mass or hydronephrosis. Adrenal Glands: Unremarkable. Aorta: The aorta and proximal iliac vessels are grossly unremarkable without aneurysmal dilation. Bowel/Mesentery: An acute inflammatory process is seen involving the proximal sigmoid colon with sca ttered diverticula noted in this area. There is a pericolonic abscess projecting posterior to the sig moid colon measuring 7.3 x 6.8 x 4.2 cm. There is an air-fluid level noted within the abscess. This i s consistent with a contained perforation and subsequent abscess formation. The remaining bowel struc tures are unremarkable. Abdominal Wall: Intact. Retroperitoneum: No evidence of adenopathy in the retrocrural, para-aortic, or deep pelvic regions. Bladder: Contours are smooth. Reproductive Organs: No abnormal masses or calcifications seen. Inguinal: The inguinal region is unremarkable without evidence of adenopathy. Bony Structures: Unremarkable. CONCLUSION: 1. Acute proximal sigmoid diverticulitis with contained perforation and subsequent abscess formation . The abscess is percutaneously accessible for drainage. 2. 2 mm nonobstructing right renal stone. Electronically signed by: Radames Snowden MD 07/05/2018 9:10 AM EDT
[2018-07-05] MEDS ORDERED: Temazepam 15 MG Capsule PO PRN (10:21)
[2018-07-05] MEDS ORDERED: HYDROmorphone PF Inj 2 MG/ML Vial IV.PUSH PRN (10:45)
[2018-07-05] MEDS: Sod Chloride 0.9% Inj 1,000 ML IV.CONT SCH ×2 (10:57→21:46)
--- NOTE | 2018-07-05 11:48 | P.HP ---
History of Present Illness Primary Care Physician: No Primary Care Physician Chief Complaint: Abdominal pain History of Present Illness: 43-year-old male with no chronic medical illnesses who presented the hospital because of abdominal pain. Patient states that he was in normal state of health until approximately 8 days ago when he started developing left lower quadrant abdominal pain/groin pain. He states that approximately 2 days into his discomfort he woke up middle night approximately 30 2 AM and had such severe pain which was 10/10 on pain scale where he could not even sit up. His had to help him up. He was able walk to the bathroom and the pain started to improve. He states that he "walked it off". He remained with persistent pain at approximately 5/10 on a pain scale throughout the week and then this morning at approximate 4 AM the severe pain came back again where it was 10/10 on pain scale located in the left lower abdomen. Because the pain would not go away this time he came to the emergency department for evaluation. Patient denies any nausea, vomiting, diarrhea, constipation, fever, chills. States that he has been having normal bowel movements and passing gas. Patient had workup done emergency department found to have a diverticular abscess. ER physician contacted interventional radiology who indicated that they could drain the abscess. Patient was recommended admission for IV antibiotics and abscess drainage. - Diagnosis (1) Colonic diverticular abscess (2) Sepsis Inpatient Certification: I certify that the inpatient services were ordered in accordance with Medicare regulations governing the order. This includes certification that hospital inpatient services are reasonable and necessary and in the case of services not specified as inpatient-only under 42 CFR 419.22(n), that they are appropriately provided as inpatient services in accordance to with the 2-midnight benchmark under 43 CFR 412.3(e) Estimated Total Length of Stay (Days): 5 Plans for Post Hospital Care: Home Review of Systems All other systems reviewed negative except as stated in HPI Gastrointestinal: Reports abdominal pain PMFSH - History History Provided By: Patient - Medical History Medical History: Medical History (Last Reviewed 07/05/18 @ 11:44 by LOLIS Cheek) GERD (gastroesophageal reflux disease) - Surgical History Surgical History: Surgical History (Last Reviewed 07/05/18 @ 11:44 by LOLIS Cheek) Hx of tonsillectomy Hx of wisdom tooth extraction - Family History Family History: Family History Other No pertinent family history - Tobacco History Second Hand Smoke Exposure: No Tobacco Use In Past 30 Days: No Smoking Status: Never smoker Tobacco Type: Smokeless Tobacco - Alcohol History How Often Do You Have a Drink Containing Alcohol: Never - Substance Use History Substance History: No History of Abuse - Travel History Recent Travel in the [place] Within the Last 8 Weeks: No Recent Travel Out of the Country Within the Last 8 Weeks: No - Immunization History Tetanus Immunization: Unsure Hx Influenza Vaccine This Season: No Medications and Allergies Active Medications: Active Medications Al Hydroxide/Mg Hydroxide (Milk Of Magnmelinda Liq) 30 ml PO Q12H PRN PRN Reason: Mild Constipation Hydromorphone HCl (Dilaudid Pf Inj) 0.5 mg IV.PUSH Q4H PRN PRN Reason: PAIN 6-10 Levofloxacin/Dextrose (Levaquin 750 Mg Premix Inj) 150 mls @ 100 mls/hr IV.SIG Q24H ANA Metronidazole/Sodium Chloride (Flagyl 500 Mg Inj) 100 mls @ 100 mls/hr IV.SIG Q6H ANA Last Admin: 07/05/18 10:58 Dose: Not Given Sodium Chloride (Ns Inj) 1,000 mls @ 100 mls/hr IV.CONT .Q10H ANA Last Admin: 07/05/18 10:57 Dose: 100 mls/hr Sodium Chloride (Ns Flush) 2 ml IV.FLUSH PRN PRN PRN Reason: FLUSH AFTER USING IV ACCESS Last Admin: 07/05/18 10:22 Dose: 2 ml Temazepam (Restoril) 15 mg PO HS PRN PRN Reason: INSOMNIA Allergies Allergy/AdvReac Type Severity Reaction Status Date / Time No Known Allergies Allergy Verified 07/05/18 07:26 Home Medications Medication Instructions Recorded Confirmed Type omeprazole magnesium [Prilosec OTC] 20 mg PO DAILY 07/05/18 07/05/18 History Exam Vital signs: Vital Signs 07/05/18 07:27 07/05/18 07:38 07/05/18 10:31 Temperature 99.3 F Pulse Rate 104 H 80 Respiratory Rate 18 18 Blood Pressure 153/90 H 138/83 Pulse Oximetry 97 99 96 Intake & Output 07/04/18 07/05/18 07/05/18 18:59 06:59 18:59 Intake Total 1222 / 1222 Balance 1222 / 1222 Weight 131.5 kg Intake: IV 1221 / 1222 Cipro 400 MG/200 ML Inj 400 mg 200 / 200 In 200 ml @ 200 mls/hr IV.SIG ONCE ONE Rx#:[id number] NS Inj 1,000 ML @ Wide Open IV. 1000 / 1000 SIG BOLUS ONE Rx#:[id number] Flagyl 500 MG Inj 100 ML @ 100 22 / 22 mls/hr IV.SIG ONCE ONE Rx#: [id number] Narrative: GENERAL: Well-developed, well-nourished, in no acute distress. alert and orientated HEENT: Head is normocephalic without any lesions or masses noted. Facial features are symmetric. Eyes: Pupils equal round reactive to light. Extraocular muscles are intact. Conjunctivae were clear. Oropharyngeal: Pharynx without any erythema edema. Tongue is midline without deviation. Buccal mucosa is moist without any masses or lesions NECK: Supple without any masses. Trachea midline no deviation. No JVD, no bruits are appreciated CARDIAC: Regular rhythm, regular rate. S1/S2 are heard. No murmurs gallops or rubs. LUNGS: Clear to auscultation bilaterally. No wheeze, rhonchi or rales. No use of accessory muscles on inspiration or expiration. ABDOMEN: Soft, mild tenderness noted in the left lower quadrant.. Nondistended. Bowel sounds heard in all 4 quadrants. No organomegaly or masses. Negative rebound, negative guarding EXTREMITIES: No edema, pulses are equal bilaterally. No cyanosis or clubbing NEUROLOGY: Mood and affect appear appropriate. Cranial nerves II through XII grossly intact. Muscle strength 5/5 in upper and lower extremities bilaterally. Deep tendon reflexes are 2+ in upper and lower extremities bilaterally. Results - Labs CBC & Chem 7: 07/05/18 07:57 07/05/18 07:57 Labs: Laboratory Results - last 24 hr 07/05/18 07/05/18 07/05/18 07:55 07:57 07:57 CBC w Diff Auto diff final WBC 15.8 H RBC 4.61 Hgb 14.4 Hct 41.2 MCV 89.6 MCH 31.2 MCHC 34.8 RDW 12.1 Plt Count 327 MPV 8.4 Neut % (Auto) 81.0 H Lymph % (Auto) 9.4 [place] % (Auto) 7.9 Eos % (Auto) 0.8 Baso % (Auto) 0.9 Neut # (Auto) 12.9 H Lymph # (Auto) 1.5 [place] # (Auto) 1.2 H Eos # (Auto) 0.1 Baso # (Auto) 0.1 WBC Differential . Differential Comment . Sodium 135 L Potassium 3.5 Chloride 100 Carbon Dioxide 29.3 Anion Gap 6 BUN 13 Creatinine 1.00 Estimated GFR 82 L Random Glucose 100 Calcium 8.9 Total Bilirubin 1.5 H AST 28 ALT 45 Alkaline Phosphatase 119 H Total Protein 8.1 Albumin 3.1 L Lipase 121 Ur Collection Type Clean catch Urine Color Yellow Urine Clarity Clear Urine pH 5.5 Ur Specific [place] 1.020 Urine Protein Trace Urine Glucose (UA) Negative Urine Ketones Negative Urine Occult Blood Trace Urine Nitrate Negative Urine Bilirubin Negative Urine Urobilinogen 4.0 H Ur Leukocyte Esterase Negative Urine RBC 0-3 Urine WBC 0-5 Ur Squamous Epith Cells 0-5 Micro UA Comment Culture not ind Urine Culture Comments Culture not ind - Imaging Impressions Abdomen/Pelvis CT 07/05/18 07:38 CONCLUSION: 1. Acute proximal sigmoid diverticulitis with contained perforation and subsequent abscess formation. The abscess is percutaneously accessible for drainage. 2. 2 mm nonobstructing right renal stone. Caprini VTE Risk Assessment Caprini VTE Risk Assessment: No/Low Risk (score <= 1) Caprini Risk Assessment Model: Point Value = 1 Point Value = 2 Point Value = 3 Point Value = 5 Age 41-60 Minor surgery BMI > 25 kg/m2 Swollen legs Varicose veins or History of unexplained or recurrent spontaneous Oral contraceptives or hormone replacement Sepsis (< 1 month) Serious lung disease, including pneumonia (< 1 month) Abnormal pulmonary function Acute myocardial infarction Congestive heart failure (< 1 month) History of inflammatory bowel disease Medical patient at bed rest Age 61-74 Arthroscopic surgery Major open surgery (> 45 min) Laparoscopic surgery (> 45 min) Malignancy Confined to bed (> 72 hours) Immobilizing plaster cast Central venous access Age >= 75 History of VTE Family history of VTE Factor V Leiden Prothrombin [id number] Lupus anticoagulant Anticardiolipin antibodies Elevated serum homocysteine Heparin-induced thrombocytopenia Other congenital or acquired thrombophilia Stroke (< 1 month) Elective arthroplasty Hip, pelvis, or leg fracture Acute spinal cord injury (< 1 month) Prophylaxis Regimen: Total Risk Factor Score Risk Level Prophylaxis Regimen 0-1 Low Early ambulation 2 Moderate Order ONE of the following: *Sequential Compression Device (SCD) *Heparin 5000 units SQ BID 3-4 Higher Order ONE of the following medications: *Heparin 5000 units SQ TID *Enoxaparin/Lovenox 40 mg SQ daily (WT < 150 kg, CrCl > 30 mL/min) *Enoxaparin/Lovenox 30 mg SQ daily (WT < 150 kg, CrCl > 10-29 mL/min) *Enoxaparin/Lovenox 30 mg SQ BID (WT < 150 kg, CrCl > 30 mL/min) AND/OR *Sequential Compression Device (SCD) 5 or more Highest Order ONE of the following medications: *Heparin 5000 units SQ TID (Preferred with Epidurals) *Enoxaparin/Lovenox 40 mg SQ daily (WT < 150 kg, CrCl > 30 mL/min) *Enoxaparin/Lovenox 30 mg SQ daily (WT < 150 kg, CrCl > 10-29 mL/min) *Enoxaparin/Lovenox 30 mg SQ BID (WT < 150 kg, CrCl > 30 mL/min) AND *Sequential Compression Device (SCD) Assessment and Plan - Assessment (1) Colonic diverticular abscess Code(s): K57.20 - Diverticulitis of large intestine with perforation and abscess without bleeding Status: Acute (2) Sepsis Code(s): A41.9 - Sepsis, unspecified organism Status: Acute - Plan Sepsis -Patient meets criteria with leukocytosis, tachycardia, diverticular abscess -Patient started on empirical antibiotics with Levaquin, Flagyl -Obtain blood cultures, lactic acid level -Continue IV fluid Diverticular abscess -Patient covered with empirical antibiotics as above -General surgery consult for evaluation -Interventional radiology consult for abscess drainage -Keep patient n.p.o. -Continue pain control Leukocytosis -Secondary to infection/sepsis -Monitor CBC Hyperbilirubinemia -Continue to follow liver enzymes DVT prevention -Sequential compression devices Discussed Condition With: Dr. Rice, ER physician, nursing staff, patient
[2018-07-05 12:59] LABS: Activated Partial Thrombo Time 28.1 sec (24.3-30.1); INR 1.2 Ratio; Prothrombin Time 11.9 sec (9.8-11.6)
[2018-07-05] MEDS ORDERED: Sod Chloride 0.9% Inj 1,000 ML IV.SIG SCH (13:30)
[2018-07-05] MEDS ORDERED: fentaNYL Citrate Inj 100 MCG/2 ML Ampul ONE (14:00)
--- NOTE | 2018-07-05 14:45 | P.RAD ---
Post CT Procedure Prog Note - Procedure Information Procedure Date: 07/05/18 Supervising Radiologist: Beltran Allison MD Estimated blood loss (mL): 0 Anesthesia: Conscious Sedation - Plan of Activity Patient to Unit: Nursing Unit Patient condition: Good See PACS Report for procedural detail/treatment.
--- NOTE | 2018-07-05 15:32 | CT ---
EXAM DATE: 07/05/2018 3:09 PM EDT AGE/SEX: 43 years / Male INDICATIONS: Diverticular abscess. CLINICAL DATA: This is the patient's initial encounter. Patient reports that signs and symptoms have been present for 1 day and indicates a pain score of 5/10. MEDICAL/SURGICAL HISTORY: None. None. COMPARISON: No prior exams available for comparison. BIOPSY SITE: abscess MEDICATION(S): 4mg midazolam (Versed) IV 300mcg fentanyl (Sublimaze) IV DEVICE(S): 10 Fr Skater FLUID: Total volume of 85 of purulent fluid was removed. Fluid was sent to lab for ordered studies.. . . PROCEDURE : CT guided drainage of the abscess. Conscious sedation with continuous EKG and oximetry monitoring. The risks, benefits and alternatives to the procedure were explained and verbal and written consent w as obtained. Using automated exposure control and adjustment of the mA and/or kV according to patient size, radiation dose was kept as low as reasonably achievable to obtain optimal diagnostic quality i mages. The site was prepped in sterile fashion. Full sterile technique was used, including cap, ma sk, sterile gloves and gown and a large sterile sheet. Hand hygiene and 2% chlorhexidine and/or beta dine/alcohol prep was utilized per protocol for cutaneous antisepsis. The skin and subcutaneous tiss ues were infiltrated with local anesthetic solution. DICOM format image data is available electronic ally for review and comparison. Using CT guidance the prescribed site was localized. Drainage was performed using the prescribed cat heter. The patient tolerated the procedure well and there were no complications. The patient tolerated the procedure well and there were no complications. The patient was sent to post anesthesia recovery in s table condition. CONCLUSION: 1. Uncomplicated CT guided drainage of presumed sigmoid diverticular abscess. Electronically signed by: Beltran Allison MD 07/05/2018 3:30 PM EDT
[2018-07-05] MEDS: HYDROmorphone PF Inj 2 MG/ML Vial IV.PUSH PRN ×2 (16:19→22:41)
[2018-07-06] MEDS: HYDROmorphone PF Inj 2 MG/ML Vial IV.PUSH PRN ×4 (04:57→19:39)
[2018-07-06 06:54] LABS: Baso # (Auto) 0.1 th/mm3 (0.0-0.2); Baso % (Auto) 0.6 % (0.0-2.0); Eos # (Auto) 0.1 th/mm3 (0.0-0.4); Eos % (Auto) 1.3 % (0.0-4.0); Hematocrit 37.8 % (39.0-51.0); Hemoglobin 12.9 gm/dL (13.0-17.0); Lymph # (Auto) 1.4 th/mm3 (1.0-4.8); Lymph % (Auto) 13.3 % (9.0-44.0); Mean Corpuscular HGB Conc 34.3 % (32.0-36.0); Mean Corpuscular Hemoglobin 31.9 pg (27.0-34.0); Mean Platelet Volume 8.4 fL (7.0-11.0); Mono # (Auto) 1.1 th/mm3 (0.0-0.9); Mono % (Auto) 10.6 % (0.0-8.0); Neut # (Auto) 7.5 th/mm3 (1.8-7.7); Neut % (Auto) 74.2 % (16.0-70.0); Platelet Count 278 th/mm3 (150-450); Red Blood Count 4.06 mil/mm3 (4.50-5.90); Red Cell Distribution Width 11.8 % (11.6-17.2); White Blood Count 10.2 th/mm3 (4.0-11.0)
[2018-07-06 06:57] LABS: Chloride 103 meq/L (98-107); Potassium 3.8 meq/L (3.5-5.1); Sodium 137 meq/L (136-145)
[2018-07-06 07:00] LABS: Albumin 2.8 g/dL (3.4-5.0); Anion Gap 4 meq/L (5-15); Calcium 8.6 mg/dL (8.5-10.1); Carbon Dioxide 29.6 meq/L (21.0-32.0); Glucose,Random 99 mg/dL (74-106)
[2018-07-06 07:01] LABS: Blood Urea Nitrogen 12 mg/dL (7-18)
[2018-07-06 07:03] LABS: Alanine Aminotransferase 36 U/L (12-78)
[2018-07-06 07:04] LABS: Aspartate Aminotransferase 17 U/L (15-37); Glomerular Filtration Rate Greater Than 89 mL/min (>89)
[2018-07-06 07:05] LABS: Total Protein 7.1 g/dL (6.4-8.2)
[2018-07-06 07:06] LABS: Alkaline Phosphatase 115 U/L (45-117)
[2018-07-06] MEDS: Sod Chloride 0.9% Inj 1,000 ML IV.CONT SCH ×2 (09:18→17:27)
[2018-07-06] MEDS: Pantoprazole Inj 40 MG Vial IV.PUSH SCH (09:38)
--- NOTE | 2018-07-06 10:55 | P.CONGS ---
[facility] Gen Surgery Consult Note Consult date: 07/06/18 Reason for consult: abdominal pain Requesting physician: Maxi Zamudio Narrative: This is a 43-year-old male with a past medical history of GERD. The patient reports that he came to the emergency room about a day ago with complaints of an 8 day history of abdominal pain and fevers. The patient has never had pain like this before. A CT abdomen and pelvis was obtained which shows sigmoid diverticulitis with a contained perforation. A CT-guided drainage was completed yesterday with 85 cc of purulent drainage removed and a drain was left in place. The patient T-max overnight was 102.8. Of note, the patient reports that he had a colonoscopy in March 2018 which he reports was normal. He cannot remember the name of his GI doctors but will try to obtain that information. His white blood cell count was elevated on admission and continues to have some left lower quadrant pain but does overall feel better. A General Surgery consultation has been requested. <Mariah Kline - Last Filed: 07/06/18 14:50> Review of Systems Constitutional: Denies chills, Denies fever(s) Eyes: Denies blurry vision Ears, Nose, Mouth, and Throat: Denies mouth pain, Denies neck pain Cardiovascular: Denies chest pain, Denies chest pain at rest, Denies chest pain with activity Respiratory: Denies chest congestion, Denies cough Gastrointestinal: Reports abdominal pain (Left lower quadrant), Denies constipation, Denies nausea, Denies vomiting Genitourinary: Denies painful urination Musculoskeletal: Denies back pain, Denies body aches Skin/Breast: Denies rash Neurologic: Denies abnormal speech, Denies dizziness Psychiatric: Denies anxiety, Denies confusion Endocrine: Denies cold intolerance, Denies flushing, Denies heat intolerance Hematologic/Lymphatic: Denies easy bleeding Allergic/Immunologic: Denies GI upset with certain foods <Mariah Kline - Last Filed: 07/06/18 14:50> PMFSH - History History Provided By: Patient - Medical History Medical History: Medical History (Last Reviewed 07/06/18 @ 10:28 by DREW Montalvo) GERD (gastroesophageal reflux disease) - Surgical History Surgical History: Surgical History (Last Reviewed 07/06/18 @ 10:29 by DREW Montalvo) H/O vasectomy Hx of tonsillectomy Hx of wisdom tooth extraction - Family History Family History: Family History (Last Updated 07/05/18 @ 11:28 by LOLIS Cheek) Other No pertinent family history - Tobacco History Second Hand Smoke Exposure: No Tobacco Use In Past 30 Days: Yes Smoking Status: Never smoker Tobacco Type: Smokeless Tobacco - Alcohol History How Often Do You Have a Drink Containing Alcohol: Never - Substance Use History Substance History: No History of Abuse - Travel History Recent Travel in the [place] Within the Last 8 Weeks: No Recent Travel Out of the Country Within the Last 8 Weeks: No - Immunization History Tetanus Immunization: Unsure Hx Influenza Vaccine This Season: No <Mariah Kline - Last Filed: 07/06/18 14:50> - Medical History Medical History: Medical History (Last Reviewed 07/08/18 @ 16:13 by Darren Upton MD) GERD (gastroesophageal reflux disease) - Surgical History Surgical History: Surgical History (Last Reviewed 07/08/18 @ 16:13 by Darren Upton MD) H/O vasectomy Hx of tonsillectomy Hx of wisdom tooth extraction - Family History Family History: Family History (Last Reviewed 07/08/18 @ 16:13 by Darren Upton MD) Other No pertinent family history <Darren Upton - Last Filed: 07/08/18 16:16> Medications and Allergies Active Medications: Active Medications Al Hydroxide/Mg Hydroxide (Milk Of Magnesia Liq) 30 ml PO Q12H PRN PRN Reason: Mild Constipation Hydromorphone HCl (Dilaudid Pf Inj) 1 mg IV.PUSH Q4H PRN PRN Reason: PAIN 6-10 Last Admin: 07/06/18 09:38 Dose: 1 mg Levofloxacin/Dextrose (Levaquin 750 Mg Premix Inj) 150 mls @ 100 mls/hr IV.SIG Q24H ANA Last Admin: 07/06/18 09:17 Dose: 100 mls/hr Metronidazole/Sodium Chloride (Flagyl 500 Mg Inj) 100 mls @ 100 mls/hr IV.SIG Q6H ANA Last Admin: 07/06/18 04:35 Dose: 100 mls/hr Sodium Chloride (Ns Inj) 1,000 mls @ 100 mls/hr IV.CONT .Q10H ANA Last Admin: 07/06/18 09:18 Dose: 100 mls/hr Sodium Chloride (Ns Inj) 1,000 mls @ 0 mls/hr IV.SIG .Q0M [facility] Ondansetron HCl (Zofran Inj) 4 mg IV.PUSH Q6H PRN PRN Reason: NAUSEA OR VOMITING Pantoprazole Sodium (Protonix Inj) 40 mg IV.PUSH Q24H [facility] Last Admin: 07/06/18 09:38 Dose: 40 mg Sodium Chloride (Ns Flush) 2 ml IV.FLUSH PRN PRN PRN Reason: FLUSH AFTER USING IV ACCESS Last Admin: 07/05/18 10:22 Dose: 2 ml Sodium Chloride (Ns Inj) 10 ml IRRIGATION BID [facility] Last Admin: 07/06/18 09:47 Dose: 10 ml Temazepam (Restoril) 15 mg PO HS PRN PRN Reason: INSOMNIA <Mariah Kline - Last Filed: 07/06/18 14:50> <Darren Upton - Last Filed: 07/08/18 16:16> Allergies Allergy/AdvReac Type Severity Reaction Status Date / Time No Known Allergies Allergy Verified 07/05/18 07:26 Home Medications Medication Instructions Recorded Confirmed Type omeprazole magnesium [Prilosec OTC] 20 mg PO DAILY 07/05/18 07/05/18 History Exam Vital signs: Vital Signs 07/05/18 10:31 07/05/18 12:00 07/05/18 15:00 Temperature 96.8 F L 98.6 F Pulse Rate 80 78 78 Respiratory Rate 18 20 16 Blood Pressure 138/83 127/83 114/61 Pulse Oximetry 96 99 96 07/05/18 15:15 07/05/18 15:30 07/05/18 15:45 Temperature 98.6 F Pulse Rate 79 85 79 Respiratory Rate 16 16 16 Blood Pressure 121/59 L 112/61 117/61 Pulse Oximetry 95 96 96 07/05/18 16:00 07/05/18 16:49 07/05/18 20:00 Temperature 99.2 F 102.8 F H Pulse Rate 85 84 Respiratory Rate 20 18 20 Blood Pressure 143/76 H 145/77 H Pulse Oximetry 96 96 07/05/18 23:44 07/06/18 00:00 07/06/18 01:10 Temperature 98.5 F Pulse Rate 70 Respiratory Rate 18 18 16 Blood Pressure 116/86 Pulse Oximetry 97 07/06/18 04:00 07/06/18 08:00 Temperature 97.8 F 97.0 F L Pulse Rate 77 Respiratory Rate 22 Blood Pressure 128/83 Pulse Oximetry 96 Intake & Output 07/05/18 07/06/18 07/06/18 18:59 06:59 18:59 Intake Total 1420 / 1420 1780 / 1780 1240 / 1240 Balance 1420 / 1420 1780 / 1780 1240 / 1240 Weight 131.5 kg 133.4 kg Intake: IV 1300 / 1300 1300 / 1300 1000 / 1000 NS Inj 1,000 ML @ 100 mls/hr IV 1000 / 1000 1000 / 1000 .CONT .Q10H ANA Rx#:[id number] Ofirmev Inj 1,000 mg In 100 ml 100 / 100 @ 400 mls/hr IV.SIG ONCE ONE Rx #:[id number] Cipro 400 MG/200 ML Inj 400 mg 200 / 200 In 200 ml @ 200 mls/hr IV.SIG ONCE ONE Rx#:[id number] NS Inj 1,000 ML @ Wide Open IV. 1000 / 1000 SIG BOLUS ONE Rx#:[id number] Flagyl 500 MG Inj 100 ML @ 100 100 / 100 200 / 200 mls/hr IV.SIG Q6H ANA Rx#: [id number] Oral 120 / 120 480 / 480 240 / 240 Other: # Voids 1 3 # Urine Diapers 1 0 Narrative: GENERAL: 43 year old male resting in bed in no acute distress. SKIN: Warm and dry. HEAD: Atraumatic. Normocephalic. EYES: Pupils equal and round. No scleral icterus. No injection or drainage. ENT: No nasal bleeding or discharge. Mucous membranes pink and moist. NECK: Trachea midline. CARDIOVASCULAR: Regular rate and rhythm. RESPIRATORY: No accessory muscle use. Clear to auscultation. Breath sounds equal bilaterally. GASTROINTESTINAL: Abdomen soft, nondistended. LLQ tenderness with palpation. IR placed drain in place with purulent sanguinous fluid. No visible scars or hernias on abdomen. MUSCULOSKELETAL: Extremities without clubbing, cyanosis, or edema. No obvious deformities. NEUROLOGICAL: Awake and alert. No obvious cranial nerve deficits. Motor grossly within normal limits. Five out of 5 muscle strength in the arms and legs. Normal speech. PSYCHIATRIC: Appropriate mood and affect; insight and judgment normal. <Mariah Kline - Last Filed: 07/06/18 14:50> Vital signs: Vital Signs 07/07/18 16:45 07/07/18 20:00 07/08/18 00:00 Temperature 98.4 F 97.3 F L Pulse Rate 73 75 Respiratory Rate 20 20 20 Blood Pressure 134/82 130/76 Pulse Oximetry 98 96 07/08/18 03:30 07/08/18 07:32 07/08/18 08:00 Temperature 97.3 F L Pulse Rate 72 Respiratory Rate 5 L 18 18 Blood Pressure 122/85 Pulse Oximetry 96 07/08/18 10:59 07/08/18 12:00 Temperature 97.5 F L Pulse Rate 64 Respiratory Rate 18 18 Blood Pressure 126/78 Pulse Oximetry 98 Intake & Output 07/07/18 07/08/18 07/08/18 18:59 06:59 18:59 Intake Total 1250 / 1250 1540 / 1540 1150 / 1150 Output Total 20 / 20 Balance 1250 / 1250 1540 / 1540 1130 / 1130 Weight 133.2 kg Intake: IV 1250 / 1250 1300 / 1300 1150 / 1150 NS Inj 1,000 ML @ 100 mls/hr IV 1000 / 1000 1000 / 1000 1000 / 1000 .CONT .Q10H ANA Rx#:[id number] Levaquin 750 mg Premix Inj 150 150 / 150 150 / 150 ML @ 100 mls/hr IV.SIG Q24H ANA Rx#:[id number] Flagyl 500 MG Inj 100 ML @ 100 100 / 100 300 / 300 mls/hr IV.SIG Q6H ANA Rx#: [id number] Oral 240 / 240 Output: Wound Drainage 20 / 20 # 1 Left Lower Anterior Abdomen 20 / 20 Hemovac Other: # Voids 3 - Constitutional no acute distress - Routine Respiratory Exam Present: CTA bilaterally - Routine Cardiovascular Exam Present: RRR, S1, S2 <Darren Upton - Last Filed: 07/08/18 16:16> Results - Labs 07/06/18 05:50 07/06/18 05:50 Abnormal lab results 07/05/18 07/06/18 07/06/18 Range/Units 12:35 05:50 05:50 RBC 4.06 L (4.50-5.90) mil/mm3 Hgb 12.9 L (13.0-17.0) gm/dL Hct 37.8 L (39.0-51.0) % Neut % (Auto) 74.2 H (16.0-70.0) % [place] % (Auto) 10.6 H (0.0-8.0) % [place] # (Auto) 1.1 H (0.0-0.9) th/mm3 PT 11.9 H (9.8-11.6) sec Anion Gap 4 L (5-15) meq/L Total Bilirubin 1.3 H (0.2-1.0) mg/dL Albumin 2.8 L (3.4-5.0) g/dL Diabetes panel 07/06/18 Range/Units 05:50 Sodium 137 (136-145) meq/L Potassium 3.8 (3.5-5.1) meq/L Chloride 103 (98-107) meq/L Carbon Dioxide 29.6 (21.0-32.0) meq/L BUN 12 (7-18) mg/dL Creatinine 0.76 (0.60-1.30) mg/dL Calcium 8.6 (8.5-10.1) mg/dL AST 17 (15-37) U/L ALT 36 (12-78) U/L Alkaline Phosphatase 115 (45-117) U/L Total Protein 7.1 D (6.4-8.2) g/dL Albumin 2.8 L (3.4-5.0) g/dL Calcium panel 07/06/18 Range/Units 05:50 Calcium 8.6 (8.5-10.1) mg/dL Albumin 2.8 L (3.4-5.0) g/dL Pituitary panel 07/06/18 Range/Units 05:50 Sodium 137 (136-145) meq/L Potassium 3.8 (3.5-5.1) meq/L Chloride 103 (98-107) meq/L Carbon Dioxide 29.6 (21.0-32.0) meq/L BUN 12 (7-18) mg/dL Creatinine 0.76 (0.60-1.30) mg/dL Calcium 8.6 (8.5-10.1) mg/dL Adrenal panel 08/16/18 Range/Units 05:50 Sodium 137 (136-145) meq/L Potassium 3.8 (3.5-5.1) meq/L Chloride 103 (98-107) meq/L Carbon Dioxide 29.6 (21.0-32.0) meq/L BUN 12 (7-18) mg/dL Creatinine 0.76 (0.60-1.30) mg/dL Calcium 8.6 (8.5-10.1) mg/dL Total Bilirubin 1.3 H (0.2-1.0) mg/dL AST 17 (15-37) U/L ALT 36 (12-78) U/L Alkaline Phosphatase 115 (45-117) U/L Total Protein 7.1 D (6.4-8.2) g/dL Albumin 2.8 L (3.4-5.0) g/dL All other labs normal. - Imaging CT scan - abdomen: image reviewed <Mariah Kline - Last Filed: 07/06/18 14:50> - Labs 07/07/18 05:45 07/07/18 05:45 All other labs normal. <Darren Upton S - Last Filed: 07/08/18 16:16> Assessment and Plan - Assessment (1) Colonic diverticular abscess Code(s): K57.20 - Diverticulitis of large intestine with perforation and abscess without bleeding Status: Acute Plan: 43 year old male with acute sigmoid diverticulitis with a contained perforation -S/p IR drainage -Continue IV antibiotics -Clear liquids -Monitor for fevers -Discussed continuing non operative treatment with IR drain, antibiotics and control of infection vs the need for sigmoid resection with possible colostomy -Discussed that if fevers continued through today will plan for transfer to the [facility] -Added Protonix per patient request -All questions answered -Discussed with Dr. Rice and Carlyle DANIELLE - Plan Discussed Condition With: Dr. Won Rice and Carlyle DANIELLE MrCrystal and MrsCrystal Arevalo <Mariah Kline - Last Filed: 07/06/18 14:50> - Assessment (1) Colonic diverticular abscess Code(s): K57.20 - Diverticulitis of large intestine with perforation and abscess without bleeding Status: Acute Plan: patient seen at bedside c/o abd pain finding abscess with concern for perforation of diverticulum trend wbc s/p IR Drain attempt non op mgnt discussed possible surgical intervention if decline in clinical status or uncontrolled septic source pt appears improving clear diet thank you for consult - Attending Attestation The exam, history, and the medical decision-making described in the above note were completed with the assistance of the mid-level provider. I reviewed and agree with the findings presented. I attest that I had a [id number] encounter with the patient on the same day, and personally performed and documented my assessment and findings in the medical record. <Darren Upton S - Last Filed: 07/08/18 16:16>
--- NOTE | 2018-07-06 11:03 | P.PN ---
Subjective Interval history: 43-year-old male who is seen and examined today for diverticular abscess. Patient is laying in bed. Mild discomfort in the lower abdomen. Drain is in place. Patient states that still having increased amount of pain in the lower abdomen. States that he has not really slept that well all night. Patient did have a fever of 102.8 last evening at 8 PM. Patient has been afebrile since then. Discussed the case with general surgery. Vital signs are stable. Physical Exam Vital signs: Vital Signs 07/05/18 12:00 07/05/18 15:00 07/05/18 15:15 Temperature 96.8 F L 98.6 F Pulse Rate 78 78 79 Respiratory Rate 20 16 16 Blood Pressure 127/83 114/61 121/59 L Pulse Oximetry 99 96 95 07/05/18 15:30 07/05/18 15:45 07/05/18 16:00 Temperature 98.6 F 99.2 F Pulse Rate 85 79 85 Respiratory Rate 16 16 20 Blood Pressure 112/61 117/61 143/76 H Pulse Oximetry 96 96 96 07/05/18 16:49 07/05/18 20:00 07/05/18 23:44 Temperature 102.8 F H Pulse Rate 84 Respiratory Rate 18 20 18 Blood Pressure 145/77 H Pulse Oximetry 96 07/06/18 00:00 07/06/18 01:10 07/06/18 04:00 Temperature 98.5 F 97.8 F Pulse Rate 70 Respiratory Rate 18 16 Blood Pressure 116/86 Pulse Oximetry 97 07/06/18 08:00 Temperature 97.0 F L Pulse Rate 77 Respiratory Rate 22 Blood Pressure 128/83 Pulse Oximetry 96 Intake & Output 07/05/18 07/06/18 07/06/18 18:59 06:59 18:59 Intake Total 1420 / 1420 1780 / 1780 1240 / 1240 Balance 1420 / 1420 1780 / 1780 1240 / 1240 Weight 131.5 kg 133.4 kg Intake: IV 1300 / 1300 1300 / 1300 1000 / 1000 NS Inj 1,000 ML @ 100 mls/hr IV 1000 / 1000 1000 / 1000 .CONT .Q10H ANA Rx#:[id number] Ofirmev Inj 1,000 mg In 100 ml 100 / 100 @ 400 mls/hr IV.SIG ONCE ONE Rx #:[id number] Cipro 400 MG/200 ML Inj 400 mg 200 / 200 In 200 ml @ 200 mls/hr IV.SIG ONCE ONE Rx#:[id number] NS Inj 1,000 ML @ Wide Open IV. 1000 / 1000 SIG BOLUS ONE Rx#:[id number] Flagyl 500 MG Inj 100 ML @ 100 100 / 100 200 / 200 mls/hr IV.SIG Q6H ANA Rx#: [id number] Oral 120 / 120 480 / 480 240 / 240 Other: # Voids 1 3 # Urine Diapers 1 0 Narrative: GENERAL: Well-developed, well-nourished, in no acute distress. alert and orientated HEENT: Head is normocephalic without any lesions or masses noted. Facial features are symmetric. Eyes: Extraocular muscles are intact. Conjunctivae were clear. NECK: Supple without any masses. Trachea midline no deviation. No JVD, CARDIAC: Regular rhythm, regular rate. S1/S2 are heard. No murmurs gallops or rubs. LUNGS: Clear to auscultation bilaterally. No wheeze, rhonchi or rales. No use of accessory muscles on inspiration or expiration. ABDOMEN: Soft, tenderness noted in the lower abdomen. Nondistended. Bowel sounds heard in all 4 quadrants. No organomegaly or masses. Negative rebound, negative guarding, percutaneous drain noted EXTREMITIES: No edema, pulses are equal bilaterally. No cyanosis or clubbing NEUROLOGY: Mood and affect appear appropriate. Cranial nerves II through XII grossly intact. Moving all extremities, speech is clear Results - Labs CBC & Chem 7: 07/06/18 05:50 07/06/18 05:50 Laboratory Results - last 24 hr 07/05/18 07/05/18 07/06/18 12:35 12:35 05:50 CBC w Diff Auto diff final WBC 10.2 RBC 4.06 L Hgb 12.9 L Hct 37.8 L MCV 93.0 MCH 31.9 MCHC 34.3 RDW 11.8 Plt Count 278 MPV 8.4 Neut % (Auto) 74.2 H Lymph % (Auto) 13.3 [place] % (Auto) 10.6 H Eos % (Auto) 1.3 Baso % (Auto) 0.6 Neut # (Auto) 7.5 Lymph # (Auto) 1.4 [place] # (Auto) 1.1 H Eos # (Auto) 0.1 Baso # (Auto) 0.1 WBC Differential . Differential Comment . PT 11.9 H INR 1.2 APTT 28.1 Sodium Potassium Chloride Carbon Dioxide Anion Gap BUN Creatinine Estimated GFR Random Glucose Lactic Acid 0.8 Calcium Total Bilirubin AST ALT Alkaline Phosphatase Total Protein Albumin 07/06/18 05:50 CBC w Diff WBC RBC Hgb Hct MCV MCH MCHC RDW Plt Count MPV Neut % (Auto) Lymph % (Auto) [place] % (Auto) Eos % (Auto) Baso % (Auto) Neut # (Auto) Lymph # (Auto) [place] # (Auto) Eos # (Auto) Baso # (Auto) WBC Differential Differential Comment PT INR APTT Sodium 137 Potassium 3.8 Chloride 103 Carbon Dioxide 29.6 Anion Gap 4 L BUN 12 Creatinine 0.76 Estimated GFR Greater than 89 Random Glucose 99 Lactic Acid Calcium 8.6 Total Bilirubin 1.3 H AST 17 ALT 36 Alkaline Phosphatase 115 Total Protein 7.1 D Albumin 2.8 L Microbiology 07/05/18 14:30 Fluid - Other Gram Stain - Final - Imaging Impressions Abscess Drainage CT 07/05/18 00:00 CONCLUSION: 1. Uncomplicated CT guided drainage of presumed sigmoid diverticular abscess. Assessment and Plan - Assessment (1) Colonic diverticular abscess Code(s): K57.20 - Diverticulitis of large intestine with perforation and abscess without bleeding Status: Acute (2) Sepsis Code(s): A41.9 - Sepsis, unspecified organism Status: Acute - Plan Sepsis, resolved -Patient meets criteria with leukocytosis, tachycardia, diverticular abscess -Patient started on empirical antibiotics with Levaquin, Flagyl -Blood cultures are pending -Lactic acid level was normal -Continue IV fluid Diverticular abscess -Patient covered with empirical antibiotics as above -General surgery consult was performed. Discussed with general surgery. If patient continues to have any fever or shows any worsening signs of sepsis. Patient will need to be transferred to the main hospital for surgical intervention. Presently there indicating that patient appears to be stable this time, responding with IV antibiotics he can continue conservative measures -Interventional radiology placed percutaneous drain -Continue to follow fluid culture -Start liquid diet and advance as tolerated -Continue pain control Leukocytosis, resolved -Secondary to infection/sepsis -Monitor CBC Hyperbilirubinemia -Continue to follow liver enzymes DVT prevention -Sequential compression devices
[2018-07-07] MEDS: HYDROmorphone PF Inj 2 MG/ML Vial IV.PUSH PRN ×7 (00:43→22:19)
[2018-07-07] MEDS: Sod Chloride 0.9% Inj 1,000 ML IV.CONT SCH ×3 (04:43→22:24)
[2018-07-07 06:13] LABS: Baso # (Auto) 0.1 th/mm3 (0.0-0.2); Baso % (Auto) 0.7 % (0.0-2.0); Eos # (Auto) 0.3 th/mm3 (0.0-0.4); Eos % (Auto) 3.5 % (0.0-4.0); Hematocrit 39.7 % (39.0-51.0); Hemoglobin 13.3 gm/dL (13.0-17.0); Lymph # (Auto) 1.5 th/mm3 (1.0-4.8); Lymph % (Auto) 15.7 % (9.0-44.0); Mean Corpuscular HGB Conc 33.5 % (32.0-36.0); Mean Corpuscular Volume 92.4 fL (80.0-100.0); Mono # (Auto) 0.9 th/mm3 (0.0-0.9); Mono % (Auto) 8.9 % (0.0-8.0); Neut # (Auto) 6.8 th/mm3 (1.8-7.7); Neut % (Auto) 71.2 % (16.0-70.0); Platelet Count 339 th/mm3 (150-450); Red Blood Count 4.29 mil/mm3 (4.50-5.90); Red Cell Distribution Width 11.8 % (11.6-17.2); White Blood Count 9.6 th/mm3 (4.0-11.0)
[2018-07-07 06:17] LABS: Chloride 103 meq/L (98-107); Potassium 3.8 meq/L (3.5-5.1); Sodium 138 meq/L (136-145)
[2018-07-07 06:22] LABS: Albumin 2.9 g/dL (3.4-5.0); Anion Gap 5 meq/L (5-15); Blood Urea Nitrogen 7 mg/dL (7-18); Carbon Dioxide 29.9 meq/L (21.0-32.0); Glucose,Random 97 mg/dL (74-106)
[2018-07-07 06:25] LABS: Alanine Aminotransferase 31 U/L (12-78); Aspartate Aminotransferase 15 U/L (15-37); Glomerular Filtration Rate Greater Than 89 mL/min (>89)
[2018-07-07 06:27] LABS: Total Protein 7.4 g/dL (6.4-8.2)
[2018-07-07 06:28] LABS: Alkaline Phosphatase 70 U/L (45-117)
--- NOTE | 2018-07-07 06:38 | P.PNGS ---
<Mariah Kline - Last Filed: 07/07/18 14:11> Subjective Interval history: tmax overnight 99.0; feeling better; pain better Physical Exam Vital signs: Vital Signs 07/06/18 08:00 07/06/18 12:00 07/06/18 16:00 Temperature 97.0 F L 97.5 F L 99.6 F Pulse Rate 77 75 83 Respiratory Rate 22 19 21 Blood Pressure 128/83 132/83 142/78 H Pulse Oximetry 96 98 98 07/06/18 20:00 07/07/18 00:00 Temperature 100.7 F H 98.4 F Pulse Rate 92 H 96 H Respiratory Rate 20 20 Blood Pressure 130/76 122/81 Pulse Oximetry 97 96 Intake & Output 07/06/18 07/06/18 07/07/18 06:59 18:59 06:59 Intake Total 1880 / 1880 3058 / 3058 1100 / 1100 Output Total 75 / 75 935 / 935 90 / 90 Balance 1805 / 1805 2123 / 2123 1010 / 1010 Weight 133.4 kg 133 kg Intake: IV 1400 / 1400 2330 / 2330 1100 / 1100 NS Inj 1,000 ML @ 100 mls/hr IV 1000 / 1000 1979 / 1979 1000 / 1000 .CONT .Q10H ANA Rx#:[id number] Ofirmev Inj 1,000 mg In 100 ml 100 / 100 @ 400 mls/hr IV.SIG ONCE ONE Rx #:[id number] Levaquin 750 mg Premix Inj 150 150 / 150 ML @ 100 mls/hr IV.SIG Q24H ANA Rx#:[id number] Flagyl 500 MG Inj 100 ML @ 100 300 / 300 200 / 200 100 / 100 mls/hr IV.SIG Q6H ANA Rx#: [id number] Oral 480 / 480 728 / 728 Output: Urine 900 / 900 Stool 0 / 0 Wound Drainage 75 / 75 35 / 35 90 / 90 # 1 Left Lower Anterior Abdomen 75 / 75 35 / 35 90 / 90 Hemovac Other: # Voids 3 # Urine Diapers 0 Date of Last Bowel Movement 07/06/18 Narrative: Alert and awake Cardio: RRR Resp: CTAB Abd: LLQ tenderness much improved; drain in place--tenderness around drain insertion site; purulent sanguinous drainage in drain No edema Assessment and Plan - Assessment (1) Colonic diverticular abscess Code(s): K57.20 - Diverticulitis of large intestine with perforation and abscess without bleeding Status: Acute Plan: 43 year old male with acute sigmoid diverticulitis with a contained perforation -S/p IR drainage -Continue IV antibiotics -Full liquids -Monitor for fevers -Discussed continuing non operative treatment with IR drain, antibiotics and control of infection vs the need for sigmoid resection with possible colostomy -Discussed that if fevers continued through today will plan for transfer to the [facility] -Discussed with Carlyle DANIELLE <Darren Upton S - Last Filed: 07/08/18 22:30> Physical Exam Vital signs: Vital Signs 07/08/18 00:00 07/08/18 03:30 07/08/18 07:32 Temperature 97.3 F L Pulse Rate 75 Respiratory Rate 20 5 L 18 Blood Pressure 130/76 Pulse Oximetry 96 07/08/18 08:00 07/08/18 10:59 07/08/18 12:00 Temperature 97.3 F L 97.5 F L Pulse Rate 72 64 Respiratory Rate 18 18 18 Blood Pressure 122/85 126/78 Pulse Oximetry 96 98 Intake & Output 07/08/18 07/08/18 07/09/18 06:59 18:59 06:59 Intake Total 1540 / 1540 1150 / 1150 Output Total 20 / 20 Balance 1540 / 1540 1130 / 1130 Weight 133.2 kg Intake: IV 1300 / 1300 1150 / 1150 NS Inj 1,000 ML @ 100 mls/hr IV 1000 / 1000 1000 / 1000 .CONT .Q10H ANA Rx#:[id number] Levaquin 750 mg Premix Inj 150 150 / 150 ML @ 100 mls/hr IV.SIG Q24H ANA Rx#:[id number] Flagyl 500 MG Inj 100 ML @ 100 300 / 300 mls/hr IV.SIG Q6H ANA Rx#: [id number] Oral 240 / 240 Output: Wound Drainage 20 / 20 # 1 Left Lower Anterior Abdomen 20 / 20 Hemovac Other: # Voids 3 Assessment and Plan - Assessment (1) Colonic diverticular abscess Code(s): K57.20 - Diverticulitis of large intestine with perforation and abscess without bleeding Status: Acute Plan: Patient seen at bedside, as above he is feeling much better, pain improved, no fevers, drain in place, labs reviewed and wbc improving tolerating liquids continue non operative mgnt slowly advance diet d/c planning once tolerating soft diet and remains afebrile - Attending Attestation The exam, history, and the medical decision-making described in the above note were completed with the assistance of the mid-level provider. I reviewed and agree with the findings presented. I attest that I had a [id number] encounter with the patient on the same day, and personally performed and documented my assessment and findings in the medical record.
[2018-07-07] MEDS: Pantoprazole Inj 40 MG Vial IV.PUSH SCH (09:31)
--- NOTE | 2018-07-07 11:39 | P.PN ---
Subjective Interval history: 43-year-old male who is seen in follow-up today for diverticular abscess. Patient states that he is doing better. His generalized pain of the abdomen is improved, however he only has localized pain to site of the percutaneous drain. Patient is tolerating diet at this time. Patient's last fever was last evening at 8 PM at 100.7. Still pursuing conservative measures at this time with IV antibiotics, percutaneous drain. Physical Exam Vital signs: Vital Signs 07/06/18 12:00 07/06/18 16:00 07/06/18 20:00 Temperature 97.5 F L 99.6 F 100.7 F H Pulse Rate 75 83 92 H Respiratory Rate 19 21 20 Blood Pressure 132/83 142/78 H 130/76 Pulse Oximetry 98 98 97 07/07/18 00:00 07/07/18 04:00 07/07/18 08:00 Temperature 98.4 F 99.2 F 97.8 F Pulse Rate 96 H 73 Respiratory Rate 20 18 Blood Pressure 122/81 131/85 Pulse Oximetry 96 97 07/07/18 09:31 Temperature Pulse Rate Respiratory Rate 20 Blood Pressure Pulse Oximetry Intake & Output 07/06/18 07/07/18 07/07/18 18:59 06:59 18:59 Intake Total 3058 / 3058 1100 / 1100 150 / 150 Output Total 935 / 935 90 / 90 Balance 2123 / 2123 1010 / 1010 150 / 150 Weight 133 kg Intake: IV 2330 / 2330 1100 / 1100 150 / 150 NS Inj 1,000 ML @ 100 mls/hr IV 1979 / 1979 1000 / 1000 .CONT .Q10H ANA Rx#:[id number] Levaquin 750 mg Premix Inj 150 150 / 150 150 / 150 ML @ 100 mls/hr IV.SIG Q24H ANA Rx#:[id number] Flagyl 500 MG Inj 100 ML @ 100 200 / 200 100 / 100 mls/hr IV.SIG Q6H ANA Rx#: [id number] Oral 728 / 728 Output: Urine 900 / 900 Stool 0 / 0 Wound Drainage 35 90 / 90 # 1 Left Lower Anterior Abdomen 35 90 / 90 Hemovac Other: Date of Last Bowel Movement 07/06/18 Narrative: GENERAL: Well-developed, well-nourished, in no acute distress. alert and orientated HEENT: Head is normocephalic without any lesions or masses noted. Facial features are symmetric. Eyes: Extraocular muscles are intact. Conjunctivae were clear. NECK: Supple without any masses. Trachea midline no deviation. No JVD, CARDIAC: Regular rhythm, regular rate. S1/S2 are heard. No murmurs gallops or rubs. LUNGS: Clear to auscultation bilaterally. No wheeze, rhonchi or rales. No use of accessory muscles on inspiration or expiration. ABDOMEN: Soft, tenderness noted in the lower abdomen. Nondistended. Bowel sounds heard in all 4 quadrants. No organomegaly or masses. Negative rebound, negative guarding, percutaneous drain noted EXTREMITIES: No edema, pulses are equal bilaterally. No cyanosis or clubbing NEUROLOGY: Mood and affect appear appropriate. Cranial nerves II through XII grossly intact. Moving all extremities, speech is clear Results - Labs CBC & Chem 7: 07/07/18 05:45 07/07/18 05:45 Laboratory Results - last 24 hr 07/07/18 07/07/18 05:45 05:45 CBC w Diff Auto diff final WBC 9.6 RBC 4.29 L Hgb 13.3 Hct 39.7 MCV 92.4 MCH 31.0 MCHC 33.5 RDW 11.8 Plt Count 339 MPV 8.0 Neut % (Auto) 71.2 H Lymph % (Auto) 15.7 [place] % (Auto) 8.9 H Eos % (Auto) 3.5 Baso % (Auto) 0.7 Neut # (Auto) 6.8 Lymph # (Auto) 1.5 [place] # (Auto) 0.9 Eos # (Auto) 0.3 Baso # (Auto) 0.1 WBC Differential . Differential Comment . Sodium 138 Potassium 3.8 Chloride 103 Carbon Dioxide 29.9 Anion Gap 5 BUN 7 Creatinine 0.83 Estimated GFR Greater than 89 Random Glucose 97 Calcium 9.0 Total Bilirubin 1.2 H AST 15 ALT 31 Alkaline Phosphatase 70 Total Protein 7.4 Albumin 2.9 L Microbiology 07/05/18 12:35 Blood - Peripheral Aerobic Blood Culture - Preliminary No growth in 2 days 07/05/18 12:35 Blood - Peripheral Anaerobic Blood Culture - Preliminary No growth in 2 days 07/05/18 12:20 Blood - Peripheral Aerobic Blood Culture - Preliminary No growth in 2 days 07/05/18 12:20 Blood - Peripheral Anaerobic Blood Culture - Preliminary No growth in 2 days 07/05/18 14:30 Fluid - Other Gram Stain - Final 07/05/18 14:30 Fluid - Other Body Fluid Culture - Final Beta Strep not A,B or D Assessment and Plan - Assessment (1) Colonic diverticular abscess Code(s): K57.20 - Diverticulitis of large intestine with perforation and abscess without bleeding Status: Acute (2) Sepsis Code(s): A41.9 - Sepsis, unspecified organism Status: Acute - Plan Diverticular abscess -Patient covered with empirical antibiotics as above -General surgery following the patient. Continue to pursue conservative measures unless patient does develop significant fever. 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, heavy growth of gram-negative rods, will need to await final culture for appropriate antibiotics - advance as tolerated -Continue pain control Sepsis, resolved -Patient meets criteria with leukocytosis, tachycardia, diverticular abscess -Blood cultures are negative for 2 days -Lactic acid level was normal -Continue IV fluid Leukocytosis, resolved -Secondary to infection/sepsis -Monitor CBC Hyperbilirubinemia, improving -Continue to follow liver enzymes DVT prevention -Sequential compression devices Discharge Planning: Discharge planning 24-40 hours depending on patient's response to treatment.
[2018-07-08] MEDS: HYDROmorphone PF Inj 2 MG/ML Vial IV.PUSH PRN ×2 (02:52→07:02)
[2018-07-08] MEDS: Pantoprazole Inj 40 MG Vial IV.PUSH SCH (10:00)
--- NOTE | 2018-07-08 11:55 | P.PN ---
Subjective Interval history: 43-year-old male who is seen and examined today for follow-up on diverticular abscess. Patient resting comfortably this time. Pain is improving. Patient denies any new complaints. Vital signs are stable, patient remains afebrile. Physical Exam Vital signs: Vital Signs 07/07/18 12:00 07/07/18 16:00 07/07/18 16:45 Temperature 98.5 F 99.3 F Pulse Rate 75 80 Respiratory Rate 18 21 20 Blood Pressure 125/86 136/83 Pulse Oximetry 97 97 07/07/18 20:00 07/08/18 00:00 07/08/18 03:30 Temperature 98.4 F 97.3 F L Pulse Rate 73 75 Respiratory Rate 20 20 5 L Blood Pressure 134/82 130/76 Pulse Oximetry 98 96 07/08/18 07:32 07/08/18 08:00 07/08/18 10:59 Temperature 97.3 F L Pulse Rate 72 Respiratory Rate 18 18 18 Blood Pressure 122/85 Pulse Oximetry 96 Intake & Output 07/07/18 07/08/18 07/08/18 18:59 06:59 18:59 Intake Total 1250 / 1250 1540 / 1540 1150 / 1150 Balance 1250 / 1250 1540 / 1540 1150 / 1150 Weight 133.2 kg Intake: IV 1250 / 1250 1300 / 1300 1150 / 1150 NS Inj 1,000 ML @ 100 mls/hr IV 1000 / 1000 1000 / 1000 1000 / 1000 .CONT .Q10H ANA Rx#:[id number] Levaquin 750 mg Premix Inj 150 150 / 150 150 / 150 ML @ 100 mls/hr IV.SIG Q24H ANA Rx#:[id number] Flagyl 500 MG Inj 100 ML @ 100 100 / 100 300 / 300 mls/hr IV.SIG Q6H ANA Rx#: [id number] Oral 240 / 240 Other: # Voids 3 Narrative: GENERAL: Well-developed, well-nourished, in no acute distress. alert and orientated HEENT: Head is normocephalic without any lesions or masses noted. Facial features are symmetric. Eyes: Extraocular muscles are intact. Conjunctivae were clear. NECK: Supple without any masses. Trachea midline no deviation. No JVD, CARDIAC: Regular rhythm, regular rate. S1/S2 are heard. No murmurs gallops or rubs. LUNGS: Clear to auscultation bilaterally. No wheeze, rhonchi or rales. No use of accessory muscles on inspiration or expiration. ABDOMEN: Soft, tenderness noted in the lower abdomen. Nondistended. Bowel sounds heard in all 4 quadrants. No organomegaly or masses. Negative rebound, negative guarding, percutaneous drain noted EXTREMITIES: No edema, pulses are equal bilaterally. No cyanosis or clubbing NEUROLOGY: Mood and affect appear appropriate. Cranial nerves II through XII grossly intact. Moving all extremities, speech is clear Results - Labs CBC & Chem 7: 07/07/18 05:45 07/07/18 05:45 Microbiology 07/05/18 12:35 Blood - Peripheral Aerobic Blood Culture - Preliminary No growth in 3 days 07/05/18 12:35 Blood - Peripheral Anaerobic Blood Culture - Preliminary No growth in 3 days 07/05/18 12:20 Blood - Peripheral Aerobic Blood Culture - Preliminary No growth in 3 days 07/05/18 12:20 Blood - Peripheral Anaerobic Blood Culture - Preliminary No growth in 3 days 07/05/18 14:30 Fluid - Other Gram Stain - Final 07/05/18 14:30 Fluid - Other Body Fluid Culture - Final Beta Strep not A,B or D Assessment and Plan - Assessment (1) Colonic diverticular abscess Code(s): K57.20 - Diverticulitis of large intestine with perforation and abscess without bleeding Status: Acute (2) Sepsis Code(s): A41.9 - Sepsis, unspecified organism Status: Acute - Plan Diverticular abscess -Patient covered with empirical antibiotics as above -General surgery following the patient. Continue to pursue conservative measures unless patient does develop significant fever. 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
--- NOTE | 2018-07-08 13:02 | P.DS ---
Date of admission: 07/05/18 09:47 Primary care physician: No Primary Care Physician Attending physician on discharge: Eduin Rice Anticipated date of discharge: 07/08/18 Brief History from admission: 43-year-old male with no chronic medical illnesses who presented the hospital because of abdominal pain. Patient states that he was in normal state of health until approximately 8 days ago when he started developing left lower quadrant abdominal pain/groin pain. He states that approximately 2 days into his discomfort he woke up middle night approximately 30 2 AM and had such severe pain which was 10/10 on pain scale where he could not even sit up. His had to help him up. He was able walk to the bathroom and the pain started to improve. He states that he "walked it off". He remained with persistent pain at approximately 5/10 on a pain scale throughout the week and then this morning at approximate 4 AM the severe pain came back again where it was 10/10 on pain scale located in the left lower abdomen. Because the pain would not go away this time he came to the emergency department for evaluation. Patient denies any nausea, vomiting, diarrhea, constipation, fever, chills. States that he has been having normal bowel movements and passing gas. Patient had workup done emergency department found to have a diverticular abscess. ER physician contacted interventional radiology who indicated that they could drain the abscess. Patient was recommended admission for IV antibiotics and abscess drainage. DS: Diagnosis - Discharge Diagnosis (1) Colonic diverticular abscess Status: Acute (2) Sepsis Status: Acute DS: Medications - Discharge Medications Prescriptions: hydrocodone-acetaminophen 1 tab PO Q6H PRN #12 tab PRN Reason: Acute Pain levofloxacin 500 mg PO DAILY #10 tab metronidazole 500 mg PO Q8HR #30 tab DS: Summary Hospital Course: 43-year-old male who originally presented the hospital because of acute onset abdominal pain. Patient had scan performed which did indicate a diverticular abscess. General surgery was consulted. Patient was started on empirical antibiotics to include Levaquin and Flagyl. General surgery recommend interventional radiology to have percutaneous drain placed. Drain was placed successfully. Culture was taken of the fluid which did indicate beta strep not group a, B, D. Continued conservative treatment with antibiotics , monitoring. Patient did have some intermittent elevated temperature. However he has been afebrile since 07/06/18. Pain has significantly improved around the area of drain. Patient is tolerating diet at this time. Patient and surgery continues to pursue medical management versus surgical management. Patient is improving on a daily basis. Discussed with general surgery who has changed patient to p.o. medication to include Levaquin, Flagyl. He is tolerating diet at this time. As indicated that if he continues to do well he can be discharged this afternoon with follow-up with Dr. Mendosa. Recommending follow-up Tuesday, Tuesday or Tuesday. Drink be removed at that time. Patient will be continued on p.o. medications upon discharge. - Time Spent with Patient Total time spent providing and/or coordinating discharge services: Greater than 30 minutes - Quality: VTE Deep Vein Thrombosis/Pulmonary Embolism Present on Admission: No Exam Vital signs: Vital Signs 07/07/18 16:00 07/07/18 16:45 07/07/18 20:00 Temperature 99.3 F 98.4 F Pulse Rate 80 73 Respiratory Rate 21 20 20 Blood Pressure 136/83 134/82 Pulse Oximetry 97 98 07/08/18 00:00 07/08/18 03:30 07/08/18 07:32 Temperature 97.3 F L Pulse Rate 75 Respiratory Rate 20 5 L 18 Blood Pressure 130/76 Pulse Oximetry 96 07/08/18 08:00 07/08/18 10:59 07/08/18 12:00 Temperature 97.3 F L 97.5 F L Pulse Rate 72 64 Respiratory Rate 18 18 18 Blood Pressure 122/85 126/78 Pulse Oximetry 96 98 Intake & Output 07/07/18 07/08/18 07/08/18 18:59 06:59 18:59 Intake Total 1250 / 1250 1540 / 1540 1150 / 1150 Balance 1250 / 1250 1540 / 1540 1150 / 1150 Weight 133.2 kg Intake: IV 1250 / 1250 1300 / 1300 1150 / 1150 NS Inj 1,000 ML @ 100 mls/hr IV 1000 / 1000 1000 / 1000 1000 / 1000 .CONT .Q10H ANA Rx#:[id number] Levaquin 750 mg Premix Inj 150 150 / 150 150 / 150 ML @ 100 mls/hr IV.SIG Q24H ANA Rx#:[id number] Flagyl 500 MG Inj 100 ML @ 100 100 / 100 300 / 300 mls/hr IV.SIG Q6H ANA Rx#: [id number] Oral 240 / 240 Other: # Voids 3 Narrative: GENERAL: Well-developed, well-nourished, in no acute distress. alert and orientated HEENT: Head is normocephalic without any lesions or masses noted. Facial features are symmetric. Eyes: Extraocular muscles are intact. Conjunctivae were clear. NECK: Supple without any masses. Trachea midline no deviation. No JVD, CARDIAC: Regular rhythm, regular rate. S1/S2 are heard. No murmurs gallops or rubs. LUNGS: Clear to auscultation bilaterally. No wheeze, rhonchi or rales. No use of accessory muscles on inspiration or expiration. ABDOMEN: Soft, tenderness noted in the lower abdomen. Nondistended. Bowel sounds heard in all 4 quadrants. No organomegaly or masses. Negative rebound, negative guarding, percutaneous drain noted EXTREMITIES: No edema, pulses are equal bilaterally. No cyanosis or clubbing NEUROLOGY: Mood and affect appear appropriate. Cranial nerves II through XII grossly intact. Moving all extremities, speech is clear Results Procedures completed during hospitalization: 07/05/18: Percutaneous diverticular abscess drain placed by interventional radiology Labs on day of discharge: Preliminary micro results at discharge 07/05/18 12:35 Aerobic Blood Culture - Preliminary Blood - Peripheral No growth in 3 days Anaerobic Blood Culture - Preliminary No growth in 3 days 07/05/18 12:20 Aerobic Blood Culture - Preliminary Blood - Peripheral No growth in 3 days Anaerobic Blood Culture - Preliminary No growth in 3 days - Impressions ITS Impressions Abscess Drainage CT 07/05/18 00:00 CONCLUSION: 1. Uncomplicated CT guided drainage of presumed sigmoid diverticular abscess. Abdomen/Pelvis CT 07/05/18 07:38 CONCLUSION: 1. Acute proximal sigmoid diverticulitis with contained perforation and subsequent abscess formation. The abscess is percutaneously accessible for drainage. 2. 2 mm nonobstructing right renal stone. Discharge Plan - Discharge Disposition Patient Disposition: 01 Discharge Home - Discharge Condition Condition: Stable - Discharge Order Discharge Orders: Discharge Order (Routine); Ordered 07/08/18 Ordered By: Maxi Zamudio - Discharge Details Anticipated Discharge Date: 07/08/18 - Physicians Team Primary Care Provider: Primary Care Physici,No Attending Provider: Eduin Rice Other Providers: Darren Upton MD ; Sur[facility]
[2018-07-08] MEDS ORDERED: metroNIDAZOLE 500 MG Tablet PO SCH (22:00)
[2018-07-09] MEDS ORDERED: levoFLOXacin 500 MG Tablet PO SCH (09:00)
== END 2018-07-08 15:30 | disposition home or self-care (01) ==
LOC: PHED 07:24 → PHEDA 09:47 → PH3 10:38
PROVIDERS: ADMIT Family Medicine; ATTEND Family Medicine

== ENCOUNTER 2018-07-19 16:41 | Inpatient (IN) ==
[2018-07-19] MEDS ORDERED: Morphine Inj 4 MG/ML Vial IV.PUSH ONE ×2 (17:43→20:22)
[2018-07-19] MEDS ORDERED: Sod Chloride 0.9% Inj 1,000 ML IV.SIG SCH ×3 (17:45→18:30)
--- NOTE | 2018-07-19 17:56 | XR ---
EXAM DATE: 07/19/2018 5:54 PM EDT AGE/SEX: 43 years / Male INDICATIONS: Fever. CLINICAL DATA: This is the patient's sequela encounter. Patient reports that signs and symptoms have been present for 2 days and indicates a pain score of 0/10. MEDICAL/SURGICAL HISTORY: Diverticulitis. None. COMPARISON: [facility], CHEST PA & LAT, 01/19/2018. . FINDINGS: A single AP view of the chest demonstrates the lungs to be symmetrically aerated without evidence of mass, infiltrate or effusion. The cardiomediastinal contours are unremarkable. Osseous structures a re intact. CONCLUSION: Negative examination. Electronically signed by: Carlyle Faith MD 07/19/2018 5:55 PM EDT
[2018-07-19 17:58] LABS: Baso # (Auto) 0.1 th/mm3 (0.0-0.2); Baso % (Auto) 0.6 % (0.0-2.0); Eos # (Auto) 0.1 th/mm3 (0.0-0.4); Eos % (Auto) 0.5 % (0.0-4.0); Hemoglobin 14.6 gm/dL (13.0-17.0); Lymph # (Auto) 2.2 th/mm3 (1.0-4.8); Lymph % (Auto) 12.4 % (9.0-44.0); Mean Corpuscular HGB Conc 34.7 % (32.0-36.0); Mean Corpuscular Hemoglobin 31.5 pg (27.0-34.0); Mean Corpuscular Volume 90.7 fL (80.0-100.0); Mean Platelet Volume 8.5 fL (7.0-11.0); Mono # (Auto) 1.9 th/mm3 (0.0-0.9); Mono % (Auto) 10.5 % (0.0-8.0); Neut # (Auto) 13.5 th/mm3 (1.8-7.7); Platelet Count 364 th/mm3 (150-450); Red Blood Count 4.63 mil/mm3 (4.50-5.90); Red Cell Distribution Width 12.7 % (11.6-17.2); White Blood Count 17.8 th/mm3 (4.0-11.0)
[2018-07-19 18:11] LABS: Magnesium 1.9 mg/dL (1.5-2.5)
[2018-07-19] MEDS ORDERED: Vancomycin Inj 1,000 MG in Sodium Chlor 0.9% Inj 250 ML IV.SIG STA (18:13)
[2018-07-19] MEDS ORDERED: Piperacil/Tazo 4.5 GM Premix 4.5 GM/100 ML BAG IV.SIG STA (18:13)
[2018-07-19 18:15] LABS: Albumin 3.8 g/dL (3.4-5.0); Anion Gap 9 meq/L (5-15); Aspartate Aminotransferase 17 U/L (15-37); Blood Urea Nitrogen 10 mg/dL (7-18); Calcium 9.2 mg/dL (8.5-10.1); Carbon Dioxide 27.4 meq/L (21.0-32.0); Chloride 99 meq/L (98-107); Glomerular Filtration Rate 67 mL/min (>89); Glucose,Random 98 mg/dL (74-106); Potassium 3.8 meq/L (3.5-5.1); Sodium 135 meq/L (136-145)
[2018-07-19 18:16] LABS: Activated Partial Thrombo Time 29.9 sec (24.3-30.1); Alanine Aminotransferase 26 U/L (12-78); INR 1.2 Ratio; Prothrombin Time 12.3 sec (9.8-11.6)
[2018-07-19 18:18] LABS: Alkaline Phosphatase 75 U/L (45-117); Total Protein 8.6 g/dL (6.4-8.2)
--- NOTE | 2018-07-19 18:48 | ED ---
HPI General Chief Complaint: Abdominal Pain Stated Complaint: dr albarran/rolly pain Time Seen by Provider: 07/19/18 17:34 Source: patient Mode of arrival: ambulatory Limitations: no limitations History of Present Illness HPI narrative: Patient is a 43-year-old male presenting to emerge from for evaluation of left lower quadrant abdominal pain. Patient reports that he was discharged approximately 10 days ago after having a perforation secondary to diverticulitis. He had the drain removed 9 days ago. He states he was feeling well until yesterday when he started developing the same pain he had initially. He reports sharp, stabbing left lower quadrant abdominal pain, nausea, subjective fever. Symptom onset was sudden, symptoms are significant, no alleviating factors. Patient took hydrocodone earlier this morning for pain. MD complaint: abdominal pain Onset (ago): day(s) (1) Pain Consistency: constant Location: LLQ Severity: severe Severity scale (1-10): 9 Quality: stabbing and sharp Radiation: none Migration to: no migration Relieving factors: medication Associated symptoms: nausea, fever and chills Related Data Home Medications Medication Instructions Recorded Confirmed omeprazole magnesium [Prilosec OTC] 20 mg PO DAILY 07/05/18 07/05/18 Previous Rx's Medication Instructions Recorded hydrocodone-acetaminophen 1 tab PO Q6H PRN #12 tab 07/08/18 levofloxacin 500 mg PO DAILY #10 tab 07/08/18 metronidazole 500 mg PO Q8HR #30 tab 07/08/18 Allergies Allergy/AdvReac Type Severity Reaction Status Date / Time No Known Allergies Allergy Verified 07/05/18 07:26 Review of Systems ROS: all other systems reviewed are negative [facility] Medical History Medical History Bowel perforation (Acute) Diverticulitis (Acute) GERD (gastroesophageal reflux disease) (Acute) Surgical History Surgical History H/O vasectomy (Acute) Hx of tonsillectomy (Acute) Hx of wisdom tooth extraction (Acute) Family History Family History Other No pertinent family history Social History Social History Substance History: No History of Abuse Second Hand Smoke Exposure: No Smoking Status: Former smoker Tobacco Type: Smokeless Tobacco How Often Do You Have a Drink Containing Alcohol: Never Recent Travel in [facility] within the Last 8 Weeks: No Recent Out of Country Travel within the Last 8 Weeks: No Immunization History Tetanus Immunization: Unsure Hx Influenza Vaccine This Season: Unable to Assess Exam Narrative Exam Narrative: GENERAL: Well-developed, well-nourished, alert male. Appears uncomfortable, no acute distress. SKIN: Focused skin assessment warm/dry. HEAD: Atraumatic. Normocephalic. EYES: Pupils equal and round. No scleral icterus. No injection or drainage. ENT: No nasal bleeding or discharge. Mucous membranes pink and moist. NECK: Trachea midline. No JVD. CARDIOVASCULAR: Tachycardic. No murmur appreciated. RESPIRATORY: No accessory muscle use. Clear to auscultation. Breath sounds equal bilaterally. GASTROINTESTINAL: Abdomen soft, tender in LLQ, nondistended. Hepatic and splenic margins not palpable. Positive guarding. MUSCULOSKELETAL: No obvious deformities. No clubbing. No cyanosis. No edema. NEUROLOGICAL: Awake and alert. No obvious cranial nerve deficits. Motor grossly within normal limits. Normal speech. PSYCHIATRIC: Appropriate mood and affect; insight and judgment normal. Course Initial Documented Vital Signs Temperature 100.2 F H 07/19/18 17:12 Pulse Rate 122 H 07/19/18 17:12 Respiratory Rate 17 07/19/18 17:12 Blood Pressure 163/95 H 07/19/18 17:12 Pulse Oximetry 97 07/19/18 17:12 Last Documented Vital Signs Temperature 99.8 F H 07/19/18 17:29 Pulse Rate 90 07/19/18 20:21 Respiratory Rate 18 07/19/18 20:21 Blood Pressure 123/67 07/19/18 20:21 Pulse Oximetry 97 07/19/18 20:21 Medical Decision Making [facility] Narrative Medical decision making narrative: Is a 43-year-old male presenting to emerge department for evaluation abdominal pain. Patient is febrile and tachycardic on arrival. Sepsis workup initiated. Patient will be started on antibiotics empirically. Blood cultures and lactic acid is pending. Patient was given morphine for pain. He was given IV acetaminophen for fever. Additionally patient will be given 2 L of IV fluids. CBC with a white count of 17.8, this is trending up when compared to prior 2 days ago which was normal. Lactic acid is unremarkable. CT scan the abdomen and pelvis shows an abscess to the sigmoid colon, this is larger when compared to prior. Dr. Upton came to the emergency department and advised to have interventional radiology consulted. Patient was given Zosyn and vancomycin empirically. His vital signs are stable, his heart rate has trended down. Patient requested pain medication, he was given additional 4 mg of morphine now. Dr. Cassidy accepted admission. Admit orders placed. Medical Screen Exam Complete: Yes Emergency Medical Condition: Yes Differential Diagnosis Differential Diagnosis: Perforation versus diverticulitis versus metabolic abnormality versus Medical Records Medical records reviewed: Yes I reviewed the patient's medical records. Lab Data Lab results reviewed: Yes I reviewed the patient's lab results. Result diagrams: 07/19/18 17:40 07/19/18 17:40 Lab Results 07/19/18 07/19/18 07/19/18 Range/Units 17:40 17:40 17:40 WBC 17.8 H (4.0-11.0) th/mm3 RBC 4.63 (4.50-5.90) mil/mm3 Hgb 14.6 (13.0-17.0) gm/dL Hct 42.0 (39.0-51.0) % MCV 90.7 (80.0-100.0) fL MCH 31.5 (27.0-34.0) pg MCHC 34.7 (32.0-36.0) % RDW 12.7 (11.6-17.2) % Plt Count 364 (150-450) th/mm3 MPV 8.5 (7.0-11.0) fL Neut % (Auto) 76.0 H (16.0-70.0) % Lymph % (Auto) 12.4 (9.0-44.0) % Bacon % (Auto) 10.5 H (0.0-8.0) % Eos % (Auto) 0.5 (0.0-4.0) % Baso % (Auto) 0.6 (0.0-2.0) % Neut # (Auto) 13.5 H (1.8-7.7) th/mm3 Lymph # (Auto) 2.2 (1.0-4.8) th/mm3 Bacon # (Auto) 1.9 H (0.0-0.9) th/mm3 Eos # (Auto) 0.1 (0.0-0.4) th/mm3 Baso # (Auto) 0.1 (0.0-0.2) th/mm3 WBC Differential . Differential Comment Auto diff final PT 12.3 H (9.8-11.6) sec INR 1.2 Ratio APTT 29.9 (24.3-30.1) sec Sodium (136-145) meq/L Potassium (3.5-5.1) meq/L Chloride (98-107) meq/L Carbon Dioxide (21.0-32.0) meq/L Anion Gap (5-15) meq/L BUN (7-18) mg/dL Creatinine (0.60-1.30) mg/dL Estimated GFR (>89) mL/min Random Glucose (74-106) mg/dL Lactic Acid (0.4-2.0) mmol/L Calcium (8.5-10.1) mg/dL Magnesium 1.9 (1.5-2.5) mg/dL Total Bilirubin (0.2-1.0) mg/dL AST (15-37) U/L ALT (12-78) U/L Alkaline Phosphatase (45-117) U/L Total Protein (6.4-8.2) g/dL Albumin (3.4-5.0) g/dL Lipase 178 (73-393) U/L 07/19/18 07/19/18 Range/Units 17:40 17:40 WBC (4.0-11.0) th/mm3 RBC (4.50-5.90) mil/mm3 Hgb (13.0-17.0) gm/dL Hct (39.0-51.0) % MCV (80.0-100.0) fL MCH (27.0-34.0) pg MCHC (32.0-36.0) % RDW (11.6-17.2) % Plt Count (150-450) th/mm3 MPV (7.0-11.0) fL Neut % (Auto) (16.0-70.0) % Lymph % (Auto) (9.0-44.0) % Bacon % (Auto) (0.0-8.0) % Eos % (Auto) (0.0-4.0) % Baso % (Auto) (0.0-2.0) % Neut # (Auto) (1.8-7.7) th/mm3 Lymph # (Auto) (1.0-4.8) th/mm3 Bacon # (Auto) (0.0-0.9) th/mm3 Eos # (Auto) (0.0-0.4) th/mm3 Baso # (Auto) (0.0-0.2) th/mm3 WBC Differential Differential Comment PT (9.8-11.6) sec INR Ratio APTT (24.3-30.1) sec Sodium 135 L (136-145) meq/L Potassium 3.8 (3.5-5.1) meq/L Chloride 99 (98-107) meq/L Carbon Dioxide 27.4 (21.0-32.0) meq/L Anion Gap 9 (5-15) meq/L BUN 10 (7-18) mg/dL Creatinine 1.19 (0.60-1.30) mg/dL Estimated GFR 67 L (>89) mL/min Random Glucose 98 (74-106) mg/dL Lactic Acid 0.9 (0.4-2.0) mmol/L Calcium 9.2 (8.5-10.1) mg/dL Magnesium (1.5-2.5) mg/dL Total Bilirubin 1.3 H (0.2-1.0) mg/dL AST 17 (15-37) U/L ALT 26 (12-78) U/L Alkaline Phosphatase 75 (45-117) U/L Total Protein 8.6 H (6.4-8.2) g/dL Albumin 3.8 (3.4-5.0) g/dL Lipase (73-393) U/L Imaging Data Radiologist's impression: Abdomen/Pelvis CT 07/19/18 17:39 CONCLUSION: 1. Large abscess in the left lower quadrant. This appears larger than it did on the prior exam. This is amenable to percutaneous drainage. This appears to be associated with the sigmoid colon. 2. 2 mm nonobstructing right renal stone. 3. Minimal hiatal hernia with some accompanying herniated fat. Chest X-Ray 07/19/18 17:40 CONCLUSION: Negative examination. Discharge Plan Discharge Disposition Patient Disposition: 30 Still Patient Discharge Condition Condition: Stable Discharge Details Diagnosis: Colonic diverticular abscess, Sepsis Physicians Team ED Provider: Bell Fajardo ED Midlevel Provider: Jenny Alas Primary Care Provider: UNKNOWN, Rxs /Orders / Referrals /Forms Prescriptions: No Action omeprazole magnesium [Prilosec OTC] 20 mg Tablet,Delayed Release (Dr/Ec) 20 mg PO DAILY RF: 0 hydrocodone-acetaminophen 5-325 mg Tablet 1 tab PO Q6H PRN (Reason: Acute Pain) Qty: 12 RF: 0 metronidazole 500 mg Tablet 500 mg PO Q8HR Qty: 30 RF: 0 levofloxacin 500 mg Tablet 500 mg PO DAILY Qty: 10 RF: 0 Discharge Interventions Interventions: Vital Signs Last Done: 07/19/18 20:21 Status ED Status: Admitted Patient
--- NOTE | 2018-07-19 19:53 | CT ---
EXAM DATE: 07/19/2018 7:27 PM EDT AGE/SEX: 43 years / Male INDICATIONS: Left lower quadrant pain. Recent perforation with drained, then removed two days ago. CLINICAL DATA: This is the patient's initial encounter. Patient reports that signs and symptoms have been present for 2 days and indicates a pain score of 8/10. MEDICAL/SURGICAL HISTORY: Gastroesophageal reflux disease. None. ORAL CONTRAST: No oral contrast ingested. RADIATION DOSE: 18.19 CTDI (mGy) COMPARISON: [facility], CT ABDOMEN & PELVIS W/O CONTRAST, 07/05/2018. . TECHNIQUE: Multiple contiguous axial images were obtained through the abdomen and pelvis following b olus infusion of 95 ml Omnipaque 350 (iohexol) nonionic water-soluble contrast as a single exam dos e. No oral contrast ingested. Using automated exposure control and adjustment of the mA and/or kV ac cording to patient size, radiation dose was kept as low as reasonably achievable to obtain optimal di agnostic quality images. DICOM format image data is available electronically for review and comparis on. FINDINGS: Lower Lungs: The visualized lower lungs are clear. Liver: The liver has a homogeneous density without space-occupying lesion. There is no dilation of th e biliary tree. Spleen: Homogeneous density without enlargement. Pancreas: Unremarkable without mass or calcification. Kidneys: Normal in size and shape. No evidence of mass or hydronephrosis. There is a 2 mm nonobstruc ting right renal stone seen at the inferior right collecting system. Adrenal Glands: Unremarkable. Aorta: The aorta and proximal iliac vessels are grossly unremarkable without aneurysmal dilation. Bowel/Mesentery: There is inflammatory change seen at the left lateral superior aspect of the sigmoi d colon. There is a separate 7.3 x 6.2 x 5.7 cm abscess seen in the left lower quadrant. Larger than the abscess seen on the prior exam. Since same location. There is induration the surrounding fat. The re is mildly prominent lymph nodes seen adjacent to this. There is a mild hiatal hernia with some acc ompanying herniated mesenteric fat. Abdominal Wall: Intact. Retroperitoneum: There continue to be a few minimally prominent lymph nodes seen in the retroperiton eum on the left side. Bladder: Contours are smooth. Reproductive Organs: No abnormal masses seen. Inguinal: The inguinal region is unremarkable without evidence of adenopathy. Bony Structures: Unremarkable. CONCLUSION: 1. Large abscess in the left lower quadrant. This appears larger than it did on the prior exam. This is amenable to percutaneous drainage. This appears to be associated with the sigmoid colon. 2. 2 mm nonobstructing right renal stone. 3. Minimal hiatal hernia with some accompanying herniated fat. Electronically signed by: Carlyle Adkins MD 07/19/2018 7:52 PM EDT
[2018-07-19] MEDS ORDERED: Morphine Sulfate Inj 2 MG/ML Vial IV.PUSH PRN (20:28)
[2018-07-19] MEDS ORDERED: Morphine Inj 4 MG/ML Vial IV.PUSH PRN (20:28)
[2018-07-19] MEDS ORDERED: Naloxone Inj 0.4 MG/ML Vial IV.PUSH PRN (20:28)
[2018-07-19] MEDS ORDERED: Vancomycin Consult Pharmacy OTHER PRN (20:33)
[2018-07-19] MEDS: Pantoprazole Inj 40 MG Vial IV.PUSH SCH (21:46)
[2018-07-19] MEDS: Morphine Inj 4 MG/ML Vial IV.PUSH PRN (22:49)
[2018-07-19] MEDS: Sod Chloride 0.9% Inj 1,000 ML IV.CONT SCH (23:02)
--- NOTE | 2018-07-19 23:16 | P.HPIM ---
History of Present Illness Primary Care Physician: UNKNOWN History of Present Illness: 43-year-old male with a history of left lower quadrant diverticular abscess with recent admission, drainage on 07/05 which grew beta strep. Patient was discharged on antibiotics, drain with continued improvement. Drain was removed on Tuesday, however patient reports a 1 day history of constant severe left lower quadrant pain, nausea without vomiting. He reports loose bowel movements , nonbloody over the past day. Subjective fever at home. Inpatient Certification: I certify that the inpatient services were ordered in accordance with Medicare regulations governing the order. This includes certification that hospital inpatient services are reasonable and necessary and in the case of services not specified as inpatient-only under 42 CFR 419.22(n), that they are appropriately provided as inpatient services in accordance to with the 2-midnight benchmark under 43 CFR 412.3(e) Review of Systems All other systems reviewed negative except as stated in HPI [facility] - History History Provided By: Patient - Medical History Medical History: Medical History (Last Reviewed 07/19/18 @ 18:52 by DREW Cameron) Bowel perforation Diverticulitis GERD (gastroesophageal reflux disease) - Surgical History Surgical History: Surgical History (Last Reviewed 07/19/18 @ 18:52 by DREW Cameron) H/O vasectomy Hx of tonsillectomy Hx of wisdom tooth extraction - Family History Family History: Family History (Last Reviewed 07/19/18 @ 18:52 by DREW Cameron) Other No pertinent family history - Tobacco History Second Hand Smoke Exposure: No Tobacco Use In Past 30 Days: No Smoking Status: Former smoker Tobacco Type: Smokeless Tobacco - Alcohol History How Often Do You Have a Drink Containing Alcohol: Never - Substance Use History Substance History: No History of Abuse - Travel History Recent Travel in the [place] Within the Last 8 Weeks: No Recent Travel Out of the Country Within the Last 8 Weeks: No - Immunization History Tetanus Immunization: Unsure Hx Influenza Vaccine This Season: Unable to Assess Medications and Allergies Active Medications: Active Medications Hydrocodone Bitart/Acetaminophen ([place] 5/325) 1 tab PO Q4H PRN PRN Reason: PAIN SCALE 3 TO 5 Hydrocodone Bitart/Acetaminophen ([place] 7.5/325) 1 tab PO Q4H PRN PRN Reason: PAIN SCALE 6 TO 10 Sodium Chloride (Ns Inj) 1,000 mls @ 0 mls/hr IV.SIG BOLUS ANA Last Admin: 07/19/18 20:57 Dose: 999 mls/hr Sodium Chloride (Ns Inj) 1,000 mls @ 0 mls/hr IV.SIG BOLUS ANA Last Admin: 07/19/18 21:43 Dose: 999 mls/hr Sodium Chloride (Ns Inj) 1,000 mls @ 0 mls/hr IV.SIG BOLUS ANA Sodium Chloride (Ns Inj) 1,000 mls @ 100 mls/hr IV.CONT .Q10H ANA Piperacillin/Tazobactam/Dextrose (Zosyn 4.5 Gm Premix) 4.5 gm in 100 mls @ 200 mls/hr IV.SIG Q6H ANA Morphine Sulfate (Morphine Inj) 4 mg IV.PUSH Q3H PRN PRN Reason: PAIN 6-10;IF UNABLE TO TAKE PO Last Admin: 07/19/18 22:49 Dose: 4 mg Morphine Sulfate (Morphine Inj) 4 mg IV.PUSH Q3H PRN PRN Reason: BREAKTHROUGH PAIN Morphine Sulfate (Morphine Inj) 2 mg IV.PUSH Q3H PRN PRN Reason: PAIN 3-5; IF UABLE TO TAKE PO Naloxone HCl (Narcan Inj) 0.4 mg IV.PUSH UNSCH PRN PRN Reason: SEE LABEL COMMENTS Pantoprazole Sodium (Protonix Inj) 40 mg IV.PUSH Q24H ANA Last Admin: 07/19/18 21:46 Dose: 40 mg Pharmacy Profile Note (Vancomycin Consult Pharmacy) 1 each OTHER UNSCH PRN PRN Reason: Pharmacy to dose Allergies Allergy/AdvReac Type Severity Reaction Status Date / Time No Known Allergies Allergy Verified 07/05/18 07:26 Home Medications Medication Instructions Recorded Confirmed Type omeprazole magnesium [Prilosec OTC] 20 mg PO DAILY 07/05/18 07/05/18 History Exam Vital signs: Vital Signs 07/19/18 17:12 07/19/18 17:29 07/19/18 20:21 Temperature 100.2 F H 99.8 F H Pulse Rate 122 H 120 H 90 Respiratory Rate 18 Blood Pressure 163/95 H 135/79 123/67 Pulse Oximetry 97 96 97 07/19/18 21:56 Temperature Pulse Rate 68 Respiratory Rate 17 Blood Pressure 123/67 Pulse Oximetry 96 Intake & Output 07/19/18 07/19/18 07/20/18 06:59 18:59 06:59 Weight 124.284 kg Narrative: GENERAL: Patient sitting up in bed. Appears uncomfortable. Alert and oriented 4. SKIN: Warm and dry. HEAD: Atraumatic. Normocephalic. EYES: Pupils equal and round. No scleral icterus. No injection or drainage. ENT: No nasal bleeding or discharge. Mucous membranes pink and moist. NECK: Trachea midline. No JVD. CARDIOVASCULAR: Regular rate and rhythm. RESPIRATORY: No accessory muscle use. Clear to auscultation. Breath sounds equal bilaterally. GASTROINTESTINAL: Abdomen soft, nondistended. Hepatic and splenic margins not palpable. Tenderness to moderate palpation of the left lower quadrant. Slight no infectious appearing erythema around previous drain placement site. MUSCULOSKELETAL: Extremities without clubbing, cyanosis, or edema. No obvious deformities. NEUROLOGICAL: Awake and alert. No obvious cranial nerve deficits. Motor grossly within normal limits. Five out of 5 muscle strength in the arms and legs. Normal speech. PSYCHIATRIC: Appropriate mood and affect; insight and judgment normal. Results - Labs CBC & Chem 7: 07/19/18 17:40 07/19/18 17:40 Labs: Short CBC 07/19/18 Range/Units 17:40 WBC 17.8 H (4.0-11.0) th/mm3 Hgb 14.6 (13.0-17.0) gm/dL Hct 42.0 (39.0-51.0) % Plt Count 364 (150-450) th/mm3 BMP 07/19/18 17:40 Sodium 135 L Potassium 3.8 Chloride 99 Carbon Dioxide 27.4 BUN 10 Creatinine 1.19 Calcium 9.2 Liver Function 07/19/18 Range/Units 17:40 Total Bilirubin 1.3 H (0.2-1.0) mg/dL AST 17 (15-37) U/L ALT 26 (12-78) U/L Alkaline Phosphatase 75 (45-117) U/L Albumin 3.8 (3.4-5.0) g/dL - Imaging Impressions Abdomen/Pelvis CT 07/19/18 17:39 CONCLUSION: 1. Large abscess in the left lower quadrant. This appears larger than it did on the prior exam. This is amenable to percutaneous drainage. This appears to be associated with the sigmoid colon. 2. 2 mm nonobstructing right renal stone. 3. Minimal hiatal hernia with some accompanying herniated fat. Chest X-Ray 07/19/18 17:40 CONCLUSION: Negative examination. Caprini VTE Risk Assessment Caprini VTE Risk Assessment: No/Low Risk (score <= 1) Caprini Risk Assessment Model: Point Value = 1 Point Value = 2 Point Value = 3 Point Value = 5 Age 41-60 Minor surgery BMI > 25 kg/m2 Swollen legs Varicose veins or History of unexplained or recurrent spontaneous Oral contraceptives or hormone replacement Sepsis (< 1 month) Serious lung disease, including pneumonia (< 1 month) Abnormal pulmonary function Acute myocardial infarction Congestive heart failure (< 1 month) History of inflammatory bowel disease Medical patient at bed rest Age 61-74 Arthroscopic surgery Major open surgery (> 45 min) Laparoscopic surgery (> 45 min) Malignancy Confined to bed (> 72 hours) Immobilizing plaster cast Central venous access Age >= 75 History of VTE Family history of VTE Factor V Leiden Prothrombin [id number] Lupus anticoagulant Anticardiolipin antibodies Elevated serum homocysteine Heparin-induced thrombocytopenia Other congenital or acquired thrombophilia Stroke (< 1 month) Elective arthroplasty Hip, pelvis, or leg fracture Acute spinal cord injury (< 1 month) Prophylaxis Regimen: Total Risk Factor Score Risk Level Prophylaxis Regimen 0-1 Low Early ambulation 2 Moderate Order ONE of the following: *Sequential Compression Device (SCD) *Heparin 5000 units SQ BID 3-4 Higher Order ONE of the following medications: *Heparin 5000 units SQ TID *Enoxaparin/Lovenox 40 mg SQ daily (WT < 150 kg, CrCl > 30 mL/min) *Enoxaparin/Lovenox 30 mg SQ daily (WT < 150 kg, CrCl > 10-29 mL/min) *Enoxaparin/Lovenox 30 mg SQ BID (WT < 150 kg, CrCl > 30 mL/min) AND/OR *Sequential Compression Device (SCD) 5 or more Highest Order ONE of the following medications: *Heparin 5000 units SQ TID (Preferred with Epidurals) *Enoxaparin/Lovenox 40 mg SQ daily (WT < 150 kg, CrCl > 30 mL/min) *Enoxaparin/Lovenox 30 mg SQ daily (WT < 150 kg, CrCl > 10-29 mL/min) *Enoxaparin/Lovenox 30 mg SQ BID (WT < 150 kg, CrCl > 30 mL/min) AND *Sequential Compression Device (SCD) Assessment and Plan - Plan //Sepsis = Leukocytosis of 17, tachycardia on admission with heart rate in the 120s, temperature 100.2. Left lower quadrant diverticular abscess on CT. Lactate within normal limits Broad-spectrum antibiotics. Follow-up blood cultures. Treatment of diverticular abscess as below //Diverticular abscess -Culture on previous admission 07/[address] reviewed Consult general surgery. Consult interventional radiology for drainage. Continue on broad-spectrum antibiotics, Zosyn, vancomycin. IV fluids, close monitoring. //GERD. Chronic. Continue home ppi. Discussed Condition With: Patient, nurse, ED physician.
--- NOTE | 2018-07-19 23:54 | MB ---
cc: Darren Upton MD DATE: 07/19/2018 CHIEF COMPLAINT: Abdominal pain, fever, history of perforated diverticulitis. HISTORY OF PRESENT ILLNESS: The patient is a 43-year-old male with history of recent diverticular abscess. Presents with acute onset abdominal pain. He states the pain started 2 days ago, continues to get worse. He has associated fevers. Pain was 8/10, currently a 7/10, worse with movement, better with lying still, sharp, located in the left lower quadrant. The patient came to emergency department for evaluation, including leukocytosis, WBC of [address] scan showing a large perforation abscess. The patient has a recent history of perforated diverticulitis in which he was admitted on 07/05/2018 underwent IR drain, improved, was discharged on 07/08/2018 with IR drain, which was removed approximately 9 days ago in the office. The patient was on antibiotics, doing relatively well until 2 days ago when he had recurrence of his symptoms. The patient, of note, had a colonoscopy in February showing essentially normal colon. PAST MEDICAL HISTORY: Diverticulitis, reflux. PAST SURGICAL HISTORY: Vasectomy, tonsillectomy, wisdom teeth. FAMILY HISTORY: Denies diabetes or hypertension. SOCIAL HISTORY: Denies smoking, ETOH or IVDA, smokeless tobacco. ALLERGIES: NO KNOWN DRUG ALLERGIES. MEDICATIONS: See EMR. REVIEW OF SYSTEMS: GENERAL: Complains of fevers. HEENT: Denies eye pain, ear pain. NECK: No swelling or pain. LUNGS: Denies cough or wheeze. HEART: Denies palpitations or chest pain. ABDOMEN: Complains of abdominal pain. Denies vomiting. GENITOURINARY: Denies dysuria or hematuria. ENDOCRINE: Denies polyuria or polydipsia. INTEGUMENT: Denies any mass or lesion. PSYCHIATRIC: Denies any changes in her sensorium. PHYSICAL EXAMINATION: GENERAL: No acute distress. VITAL SIGNS: Temperature of 100.2, pulse 122, respirations 17, blood pressure 163/65, saturation 97%. HEENT: Pupils equal, round, reactive. NECK: Supple. Trachea midline. LUNGS: Clear to auscultation, bilateral expansion. HEART: S1, S2, regular, tachycardic. ABDOMEN: Soft. Positive tenderness to palpation in the left lower quadrant. No peritoneal signs. No rebound. EXTREMITIES: Warm and well perfused. NEUROLOGIC: GCS of 15, 5/5 in all extremities. INTEGUMENT: No obvious masses or lesions. PSYCHIATRIC: Appropriate mood, appropriate judgment. LABORATORY AND DIAGNOSTIC DATA: WBC 17.8, hemoglobin 14.6, hematocrit 42, platelets 364. Sodium 135, potassium 3.8, chloride 99, BUN is 10, creatinine 1.1, bilirubin 1.3. INR is 1.2, CT reviewed by myself showing a large perforation, air fluid levels, 7 cm abscess associated with sigmoid colon. ASSESSMENT: The patient is a 43-year-old male with history of recent sigmoid diverticular perforation presents with a recurrence of abscess. PLAN: After full workup of the patient with the above-noted issues, at this point discussed with the patient regarding accessible by a second IR drain placement. We will consider this and again nonoperative management, IV antibiotics, and p.o., IV fluids and bowel rest. Discussed with the patient that he is at high risk, he may need surgical intervention this hospital stay, given the fact of the short interval followup would have been a recurrence of previous event. However, I again discussed risks of possible colostomy and more likely open procedure, given the face of acute inflammation. If we do need to go to surgery. We will again try nonoperative management with interventional radiology. I will follow closely. Discussed with the patient in detail. MD INEZ Padron/keya , 10:09 PM , 10:19 PM
[2018-07-20] MEDS: Morphine Inj 4 MG/ML Vial IV.PUSH PRN ×4 (04:02→23:38)
[2018-07-20] MEDS: Piperacil/Tazo 4.5 GM Premix 4.5 GM/100 ML BAG IV.SIG SCH ×5 (04:03→21:22)
[2018-07-20 04:40] LABS: Bilirubin,Urine Negative (Negative); Clarity,Urine Clear (Clear); Color,Urine Yellow (Yellw/Straw); Glucose,Urine (UA) Negative (Negative); Leukocyte Esterase,Urine Negative (Negative); Mucus,Urine Few /lpf (Occasional); Nitrite,Urine Negative (Negative); Specific Gravity,Urine 1.019 (1.002-1.035)
[2018-07-20] MEDS: Sod Chloride 0.9% Inj 1,000 ML IV.CONT SCH ×2 (07:29→19:13)
[2018-07-20 07:34] LABS: Baso # (Auto) 0.1 th/mm3 (0.0-0.2); Baso % (Auto) 0.8 % (0.0-2.0); Eos # (Auto) 0.1 th/mm3 (0.0-0.4); Hemoglobin 11.8 gm/dL (13.0-17.0); Lymph # (Auto) 1.5 th/mm3 (1.0-4.8); Lymph % (Auto) 12.7 % (9.0-44.0); Mean Corpuscular HGB Conc 34.8 % (32.0-36.0); Mean Corpuscular Hemoglobin 31.9 pg (27.0-34.0); Mean Corpuscular Volume 91.7 fL (80.0-100.0); Mean Platelet Volume 8.4 fL (7.0-11.0); Mono # (Auto) 1.4 th/mm3 (0.0-0.9); Mono % (Auto) 11.9 % (0.0-8.0); Neut # (Auto) 8.6 th/mm3 (1.8-7.7); Neut % (Auto) 73.6 % (16.0-70.0); Platelet Count 237 th/mm3 (150-450); Red Blood Count 3.71 mil/mm3 (4.50-5.90); White Blood Count 11.7 th/mm3 (4.0-11.0)
[2018-07-20 08:07] LABS: Alanine Aminotransferase 18 U/L (12-78); Albumin 2.9 g/dL (3.4-5.0); Alkaline Phosphatase 54 U/L (45-117); Anion Gap 8 meq/L (5-15); Aspartate Aminotransferase 8 U/L (15-37); Blood Urea Nitrogen 6 mg/dL (7-18); Calcium 8.4 mg/dL (8.5-10.1); Carbon Dioxide 28.1 meq/L (21.0-32.0); Chloride 103 meq/L (98-107); Glomerular Filtration Rate Greater Than 89 mL/min (>89); Glucose,Random 90 mg/dL (74-106); Potassium 3.8 meq/L (3.5-5.1); Sodium 139 meq/L (136-145); Total Protein 6.8 g/dL (6.4-8.2)
[2018-07-20] MEDS: Vancomycin Inj 2,000 MG in Sodium Chlor 0.9% Inj 500 ML IV.SIG SCH ×2 (10:53→21:27)
--- NOTE | 2018-07-20 11:39 | P.PNGS ---
Subjective Patient reports: still having pain (no fever wbc better) Physical Exam Vital signs: Vital Signs 07/19/18 17:12 07/19/18 17:29 07/19/18 20:21 Temperature 100.2 F H 99.8 F H Pulse Rate 122 H 120 H 90 Respiratory Rate 17 18 18 Blood Pressure 163/95 H 135/79 123/67 Pulse Oximetry 97 96 97 07/19/18 21:56 07/19/18 22:11 07/20/18 00:00 Temperature 98.5 F 98.1 F Pulse Rate 68 79 97 H Respiratory Rate 17 18 18 Blood Pressure 123/67 132/86 123/72 Pulse Oximetry 96 98 97 07/20/18 04:00 07/20/18 08:00 Temperature 98.4 F 98.7 F Pulse Rate 78 80 Respiratory Rate 19 16 Blood Pressure 118/70 132/83 Pulse Oximetry 96 98 Intake & Output 07/19/18 07/20/18 07/20/18 18:59 06:59 18:59 Intake Total 100 / 100 1000 / 1000 Output Total 550 / 550 Balance -450 / -450 1000 / 1000 Weight 124.284 kg 128.5 kg Intake: IV 100 / 100 1000 / 1000 NS Inj 1,000 ML @ 100 mls/hr IV 1000 / 1000 .CONT .Q10H ANA Rx#:[id number] Zosyn 4.5 GM Premix 4.5 gm In 100 / 100 100 ml @ 200 mls/hr IV.SIG Q6H ANA Rx#:[id number] Output: Urine 550 / 550 Other: Weight On Admission 128.5 kg - Constitutional no acute distress - Routine Respiratory Exam Present: CTA bilaterally - Routine Cardiovascular Exam Present: RRR - Routine Abdominal Exam Present: soft (+ttp LLQ, no rebound) Assessment and Plan - Plan perf colon abscess likely diverticular, wbc better PLAN npo for IR drain IV abx pain control appears to be diverticular abscess possible perforation from other etiology, will consider enema gastrografin study in future
[2018-07-20] MEDS ORDERED: Morphine Inj 4 MG/ML Vial IV.PUSH PRN (13:42)
[2018-07-20] MEDS ORDERED: Morphine Sulfate Inj 2 MG/ML Vial IV.PUSH PRN (13:42)
[2018-07-20] MEDS ORDERED: fentaNYL Citrate Inj 100 MCG/2 ML Ampul ONE ×3 (15:26→16:39)
--- NOTE | 2018-07-20 17:11 | P.PNIM ---
Subjective Interval history: Patient's only complaint is pain today. General surgery has recommended interventional radiology drainage. General surgeon assessment indicates potential for an alternate location rather than a recurrence of an identical abscess. No other complaints from the patient today. Physical Exam Vital signs: Vital Signs 07/19/18 17:12 07/19/18 17:29 07/19/18 20:21 Temperature 100.2 F H 99.8 F H Pulse Rate 122 H 120 H 90 Respiratory Rate 17 18 18 Blood Pressure 163/95 H 135/79 123/67 Pulse Oximetry 97 96 97 07/19/18 21:56 07/19/18 22:11 07/20/18 00:00 Temperature 98.5 F 98.1 F Pulse Rate 68 79 97 H Respiratory Rate 17 18 18 Blood Pressure 123/67 132/86 123/72 Pulse Oximetry 96 98 97 07/20/18 04:00 07/20/18 08:00 07/20/18 09:00 Temperature 98.4 F 98.7 F Pulse Rate 78 80 72 Respiratory Rate 19 16 Blood Pressure 118/70 132/83 Pulse Oximetry 96 99 07/20/18 12:00 Temperature 98.9 F Pulse Rate 77 Respiratory Rate 18 Blood Pressure 124/83 Pulse Oximetry 97 Intake & Output 07/19/18 07/20/18 07/20/18 18:59 06:59 18:59 Intake Total 100 / 100 1370 / 1370 Output Total 550 / 550 Balance -450 / -450 1370 / 1370 Weight 124.284 kg 128.5 kg Intake: IV 100 / 100 1370 / 1370 NS Inj 1,000 ML @ 100 mls/hr IV 1000 / 1000 .CONT .Q10H ANA Rx#:[id number] Zosyn 4.5 GM Premix 4.5 gm In 100 / 100 100 / 100 100 ml @ 200 mls/hr IV.SIG Q6H ANA Rx#:[id number] Vancomycin Inj 2,000 MG In NS 270 / 270 Inj 500 ML @ 250 mls/hr IV.SIG Q12H ANA Rx#:[id number] Output: Urine 550 / 550 Other: Weight On Admission 128.5 kg Narrative: GENERAL: NAD, A&Ox3 HEAD: Normocephalic. NECK: Supple, trachea midline. No lymphadenopathy. EYES: No scleral icterus. No injection or drainage. CARDIOVASCULAR: Regular rate and rhythm without murmurs, gallops, or rubs. RESPIRATORY: Breath sounds equal bilaterally. No accessory muscle use. GASTROINTESTINAL: Abdomen soft, tender, nondistended. MUSCULOSKELETAL: No cyanosis, or edema. SKIN: Warm and dry. NEURO: No focal neurological deficits. Results - Labs CBC & Chem 7: 07/20/18 07:08 07/20/18 07:08 Laboratory Results - last 24 hr 07/19/18 07/19/18 07/19/18 17:40 17:40 17:40 WBC 17.8 H RBC 4.63 Hgb 14.6 Hct 42.0 MCV 90.7 MCH 31.5 MCHC 34.7 RDW 12.7 Plt Count 364 MPV 8.5 Neut % (Auto) 76.0 H Lymph % (Auto) 12.4 [place] % (Auto) 10.5 H Eos % (Auto) 0.5 Baso % (Auto) 0.6 Neut # (Auto) 13.5 H Lymph # (Auto) 2.2 [place] # (Auto) 1.9 H Eos # (Auto) 0.1 Baso # (Auto) 0.1 WBC Differential . Differential Comment Auto diff final PT 12.3 H INR 1.2 APTT 29.9 Sodium Potassium Chloride Carbon Dioxide Anion Gap BUN Creatinine Estimated GFR Random Glucose Lactic Acid Calcium Magnesium 1.9 Total Bilirubin Direct Bilirubin Indirect Bilirubin AST ALT Alkaline Phosphatase Total Protein Albumin Lipase 178 Urine Color Urine Clarity Urine pH Ur Specific [place] Urine Protein Urine Glucose (UA) Urine Ketones Urine Occult Blood Urine Nitrate Urine Bilirubin Urine Urobilinogen Ur Leukocyte Esterase Urine RBC Urine WBC Urine Mucus Micro UA Comment Ur Microscopic Review Urine Culture Comments 07/19/18 07/19/18 07/19/18 17:40 17:40 17:40 WBC RBC Hgb Hct MCV MCH MCHC RDW Plt Count MPV Neut % (Auto) Lymph % (Auto) [place] % (Auto) Eos % (Auto) Baso % (Auto) Neut # (Auto) Lymph # (Auto) [place] # (Auto) Eos # (Auto) Baso # (Auto) WBC Differential Differential Comment PT INR APTT Sodium 135 L Potassium 3.8 Chloride 99 Carbon Dioxide 27.4 Anion Gap 9 BUN 10 Creatinine 1.19 Estimated GFR 67 L Random Glucose 98 Lactic Acid 0.9 Calcium 9.2 Magnesium Total Bilirubin 1.3 H 1.3 H Direct Bilirubin 0.3 H Indirect Bilirubin 1.0 H AST 17 ALT 26 Alkaline Phosphatase 75 Total Protein 8.6 H Albumin 3.8 Lipase Urine Color Urine Clarity Urine pH Ur Specific [place] Urine Protein Urine Glucose (UA) Urine Ketones Urine Occult Blood Urine Nitrate Urine Bilirubin Urine Urobilinogen Ur Leukocyte Esterase Urine RBC Urine WBC Urine Mucus Micro UA Comment Ur Microscopic Review Urine Culture Comments 07/20/18 07/20/18 07/20/18 04:18 07:08 07:08 WBC 11.7 H RBC 3.71 L Hgb 11.8 L D Hct 34.0 L MCV 91.7 MCH 31.9 MCHC 34.8 RDW 13.0 Plt Count 237 D MPV 8.4 Neut % (Auto) 73.6 H Lymph % (Auto) 12.7 [place] % (Auto) 11.9 H Eos % (Auto) 1.0 Baso % (Auto) 0.8 Neut # (Auto) 8.6 H Lymph # (Auto) 1.5 [place] # (Auto) 1.4 H Eos # (Auto) 0.1 Baso # (Auto) 0.1 WBC Differential . Differential Comment Auto diff final PT INR APTT Sodium 139 Potassium 3.8 Chloride 103 Carbon Dioxide 28.1 Anion Gap 8 BUN 6 L Creatinine 0.90 Estimated GFR Greater than 89 Random Glucose 90 Lactic Acid Calcium 8.4 L D Magnesium Total Bilirubin 1.7 H Direct Bilirubin Indirect Bilirubin AST 8 L ALT 18 Alkaline Phosphatase 54 Total Protein 6.8 D Albumin 2.9 L D Lipase Urine Color Yellow Urine Clarity Clear Urine pH 5.0 Ur Specific [place] 1.019 Urine Protein Negative Urine Glucose (UA) Negative Urine Ketones Negative Urine Occult Blood Negative Urine Nitrate Negative Urine Bilirubin Negative Urine Urobilinogen Less than 2 Ur Leukocyte Esterase Negative Urine RBC 1 Urine WBC 1 Urine Mucus Few H Micro UA Comment Culture not ind Ur Microscopic Review Not Reportable Urine Culture Comments Culture not ind Microbiology 07/19/18 17:40 Blood - Peripheral Aerobic Blood Culture - Preliminary No growth in 1 day 07/19/18 17:40 Blood - Peripheral Anaerobic Blood Culture - Preliminary No growth in 1 day 07/19/18 17:45 Blood - Peripheral Aerobic Blood Culture - Preliminary No growth in 1 day 07/19/18 17:45 Blood - Peripheral Anaerobic Blood Culture - Preliminary No growth in 1 day - Imaging Impressions Abdomen/Pelvis CT 07/19/18 17:39 CONCLUSION: 1. Large abscess in the left lower quadrant. This appears larger than it did on the prior exam. This is amenable to percutaneous drainage. This appears to be associated with the sigmoid colon. 2. 2 mm nonobstructing right renal stone. 3. Minimal hiatal hernia with some accompanying herniated fat. Chest X-Ray 07/19/18 17:40 CONCLUSION: Negative examination. Assessment and Plan - Assessment (1) Colonic diverticular abscess Code(s): K57.20 - Diverticulitis of large intestine with perforation and abscess without bleeding Status: Acute (2) Sepsis Code(s): A41.9 - Sepsis, unspecified organism Status: Acute - Plan 43-year-old male admitted secondary to sepsis with diverticular abscess Sepsis Improving on treatments Continue to monitor fevers Continue antibiotics General surgery following Diverticular abscess IR drainage recommended per general surgeon Continue on Zosyn Continue on vancomycin IV hydration As needed pain treatments Monitor for improvement Follow CBC Gastroesophageal reflux disease Continue home PPI DVT prophylaxis SCDs (2) Sepsis Qualifiers: Sepsis type: sepsis due to unspecified organism Qualified Code(s): A41.9 - Sepsis, unspecified organism
--- NOTE | 2018-07-20 17:13 | P.RAD ---
Post CT Procedure Prog Note - Pre Procedure Diagnosis (1) Colonic diverticular abscess - Post Procedure Diagnosis (1) Colonic diverticular abscess - Procedure Information Procedure Date: 07/20/18 Supervising Radiologist: Ramin Pimentel MD Anesthesia: Conscious Sedation - Plan of Activity Patient to Unit: Nursing Unit Patient condition: Good See PACS Report for procedural detail/treatment. Drainage Procedure CT left Abscess Drainage Drainage: Suction Fluid Removal (CCs): 30 Fluid Description: Purulent
[2018-07-20] MEDS: Pantoprazole Inj 40 MG Vial IV.PUSH SCH (21:27)
[2018-07-21] MEDS: Piperacil/Tazo 4.5 GM Premix 4.5 GM/100 ML BAG IV.SIG SCH ×4 (03:16→21:21)
[2018-07-21] MEDS: Morphine Inj 4 MG/ML Vial IV.PUSH PRN ×5 (03:26→20:32)
[2018-07-21 06:20] LABS: Baso # (Auto) 0.1 th/mm3 (0.0-0.2); Baso % (Auto) 1.4 % (0.0-2.0); Eos # (Auto) 0.3 th/mm3 (0.0-0.4); Hematocrit 35.1 % (39.0-51.0); Hemoglobin 11.9 gm/dL (13.0-17.0); Lymph # (Auto) 1.7 th/mm3 (1.0-4.8); Lymph % (Auto) 24.9 % (9.0-44.0); Mean Corpuscular HGB Conc 34.1 % (32.0-36.0); Mean Corpuscular Hemoglobin 31.4 pg (27.0-34.0); Mean Platelet Volume 8.3 fL (7.0-11.0); Mono # (Auto) 0.9 th/mm3 (0.0-0.9); Neut # (Auto) 3.7 th/mm3 (1.8-7.7); Neut % (Auto) 55.7 % (16.0-70.0); Platelet Count 253 th/mm3 (150-450); Red Blood Count 3.81 mil/mm3 (4.50-5.90); Red Cell Distribution Width 12.6 % (11.6-17.2); White Blood Count 6.6 th/mm3 (4.0-11.0)
[2018-07-21] MEDS: Sod Chloride 0.9% Inj 1,000 ML IV.CONT SCH ×3 (06:30→17:42)
[2018-07-21 06:48] LABS: Anion Gap 8 meq/L (5-15); Aspartate Aminotransferase 10 U/L (15-37); Blood Urea Nitrogen 6 mg/dL (7-18); Carbon Dioxide 30.2 meq/L (21.0-32.0); Chloride 103 meq/L (98-107); Glomerular Filtration Rate 80 mL/min (>89); Glucose,Random 92 mg/dL (74-106); Potassium 4.1 meq/L (3.5-5.1); Sodium 141 meq/L (136-145)
[2018-07-21 06:59] LABS: Alanine Aminotransferase 17 U/L (12-78); Alkaline Phosphatase 52 U/L (45-117); Total Protein 6.9 g/dL (6.4-8.2)
--- NOTE | 2018-07-21 08:24 | US ---
INDICATIONS: Ultrasound guided IV placement. CLINICAL DATA: This is the patient's initial encounter. Patient reports that signs and symptoms have been present for 1 day and indicates a pain score of 0/10. Location: , Laterality: MEDICAL/SURGICAL HISTORY: Diverticulitis. Gastroesophageal reflux disease. Bowel perforation. Tonsillectomy. Vasectomy. [place] tooth extraction. COMPARISON: No prior exams available for comparison. FLUORO TIME (min): IMAGE SERIES: ACCESS SITE: SEDATION TIME (min): CONTRAST (cc): MEDICATION(S): DEVICE(S): . . PROCEDURE : 1. Ultrasound guided venous access. The risks, benefits and alternatives to the procedure were explained and verbal and written consent w as obtained. The site was prepped in sterile fashion. Full sterile technique was used, including ca p, mask, sterile gloves and gown and a large sterile sheet. Hand hygiene and 2% chlorhexidine and/or betadine/alcohol prep was utilized per protocol for cutaneous antisepsis. Sterile gel and sterile p robe cover were utilized for ultrasound guidance. The skin and subcutaneous tissues were infiltrate d with local anesthetic solution. With ultrasound guidance the prescribed vein was punctured for venous access. A 4 Wolof dilator was placed and was flushed and locked with heparin. The patient tolerated procedure well and there were n o complications. CONCLUSION: 1. Uncomplicated ultrasound guided venous access. Electronically signed by: Ramin Pimentel MD 07/21/2018 8:23 AM EDT
--- NOTE | 2018-07-21 08:26 | CT ---
EXAM DATE: 07/20/2018 5:31 PM EDT AGE/SEX: 43 years / Male INDICATIONS: Diverticular abscess drain. CLINICAL DATA: This is the patient's initial encounter. Patient reports that signs and symptoms have been present for 1 day and indicates a pain score of 0/10. MEDICAL/SURGICAL HISTORY: Gastroesophageal reflux disease. Diverticulitis. None. COMPARISON: [facility], CT ASSISTED ABSCESS DRAIN, 07/05/2018. . BIOPSY SITE: diverticular abscess MEDICATION(S): 5mg midazolam (Versed) IV 250mcg fentanyl (Sublimaze) IV DEVICE(S): 7 Fr Dilator 17 gauge Valle blunt needle 10 Fr Cecille FLUID: Total volume of 30 of lewis fluid was removed. Fluid was discarded.. . . PROCEDURE : CT guided drainage of the diverticular abscess. The risks, benefits and alternatives to the procedure were explained and verbal and written consent w as obtained. Using automated exposure control and adjustment of the mA and/or kV according to patient size, radiation dose was kept as low as reasonably achievable to obtain optimal diagnostic quality i mages. The site was prepped in sterile fashion. Full sterile technique was used, including cap, ma sk, sterile gloves and gown and a large sterile sheet. Hand hygiene and 2% chlorhexidine and/or beta dine/alcohol prep was utilized per protocol for cutaneous antisepsis. The skin and subcutaneous tiss ues were infiltrated with local anesthetic solution. DICOM format image data is available electronic ally for review and comparison. Using CT guidance the prescribed site was localized. Drainage was performed using the prescribed cat heter. The patient tolerated the procedure well and there were no complications. The patient tolerated the procedure well and there were no complications. The patient was sent to post anesthesia recovery in s table condition. FINDINGS: The abscess was localized and a 10 Greek locking loop catheter was fixed in place. CONCLUSION: 1. Uncomplicated CT guided drainage. Electronically signed by: Ramin Pimentel MD 07/21/2018 8:24 AM EDT
[2018-07-21] MEDS: Vancomycin Inj 2,000 MG in Sodium Chlor 0.9% Inj 500 ML IV.SIG SCH ×2 (10:10→21:57)
--- NOTE | 2018-07-21 13:27 | P.PNGS ---
Subjective Patient reports: no new complaints, feels better, pain is less, flatus Physical Exam Vital signs: Vital Signs 07/20/18 17:25 07/20/18 17:40 07/20/18 17:55 Temperature 99.2 F Pulse Rate 78 78 73 Respiratory Rate 20 20 20 Blood Pressure 125/71 129/73 126/74 Pulse Oximetry 95 93 L 90 L 07/20/18 18:15 07/20/18 18:30 07/20/18 20:00 Temperature 96.8 F L Pulse Rate 89 78 80 Respiratory Rate 20 20 18 Blood Pressure 116/80 122/78 111/74 Pulse Oximetry 92 L 92 L 97 07/21/18 00:00 07/21/18 04:00 07/21/18 08:00 Temperature 98.5 F 97.8 F 97.2 F L Pulse Rate 71 68 71 Respiratory Rate 20 18 16 Blood Pressure 121/72 117/78 138/95 H Pulse Oximetry 97 98 99 07/21/18 09:00 07/21/18 09:57 07/21/18 12:00 Temperature 97.3 F L Pulse Rate 76 68 Respiratory Rate 18 Blood Pressure 153/70 H Pulse Oximetry 99 96 Intake & Output 07/20/18 07/21/18 07/21/18 18:59 06:59 18:59 Intake Total 2370 / 2370 3450 / 3450 550 / 550 Output Total 800 / 800 550 / 550 150 / 150 Balance 1570 / 1570 2900 / 2900 400 / 400 Weight 128.5 kg Intake: IV 2370 / 2370 2970 / 2970 550 / 550 NS Inj 1,000 ML @ 100 mls/hr IV 1999 .CONT .Q10H ANA Rx#:[id number] Zosyn 4.5 GM Premix 4.5 gm In 100 / 100 200 / 200 100 / 100 100 ml @ 200 mls/hr IV.SIG Q6H ANA Rx#:[id number] NS Inj 1,000 ML @ Wide Open IV. 1999 SIG BOLUS ANA Rx#:[id number] Vancomycin Inj 2,000 MG In NS 270 / 270 770 / 770 Inj 500 ML @ 250 mls/hr IV.SIG Q12H ANA Rx#:[id number] Oral 480 / 480 Output: Urine 800 / 800 500 / 500 Wound Drainage 50 / 50 150 / 150 Left Abdomen 50 / 50 150 / 150 - Constitutional no acute distress - Routine Respiratory Exam Present: CTA bilaterally - Routine Cardiovascular Exam Present: RRR - Routine Abdominal Exam Present: soft (pain at drain site, no guarding, no rebound) Assessment and Plan - Plan perf colon abscess likely diverticular, wbc better PLAN ok for liquid diet, slowly advance IR drain to leg bag IV abx pain control appears to be diverticular abscess possible perforation from other etiology, will consider enema gastrografin study in future
--- NOTE | 2018-07-21 18:18 | P.PNIM ---
Subjective Interval history: Patient is doing well status post drain placement. Drain output has been increasing since yesterday. No pain complaints from the patient, pain is well controlled currently. Physical Exam Vital signs: Vital Signs 07/20/18 18:30 07/20/18 20:00 07/21/18 00:00 Temperature 96.8 F L 98.5 F Pulse Rate 78 80 71 Respiratory Rate 20 18 20 Blood Pressure 122/78 111/74 121/72 Pulse Oximetry 92 L 97 97 07/21/18 04:00 07/21/18 08:00 07/21/18 09:00 Temperature 97.8 F 97.2 F L Pulse Rate 68 71 76 Respiratory Rate 18 16 Blood Pressure 117/78 138/95 H Pulse Oximetry 98 99 07/21/18 09:57 07/21/18 12:00 07/21/18 17:21 Temperature 97.3 F L 97.4 F L Pulse Rate 68 65 Respiratory Rate 18 18 Blood Pressure 153/70 H 118/75 Pulse Oximetry 99 96 96 Intake & Output 07/20/18 07/21/18 07/21/18 18:59 06:59 18:59 Intake Total 2370 / 2370 3450 / 3450 2170 / 2170 Output Total 800 / 800 550 / 550 150 / 150 Balance 1570 / 1570 2900 / 2900 2019 Weight 128.5 kg 124 kg Intake: IV 2370 / 2370 2970 / 2970 2170 / 2170 NS Inj 1,000 ML @ 100 mls/hr IV 1999 1000 / 1000 .CONT .Q10H ANA Rx#:[id number] Zosyn 4.5 GM Premix 4.5 gm In 100 / 100 200 / 200 200 / 200 100 ml @ 200 mls/hr IV.SIG Q6H ANA Rx#:[id number] NS Inj 1,000 ML @ Wide Open IV. 1999 SIG BOLUS ANA Rx#:[id number] Vancomycin Inj 2,000 MG In NS 270 / 270 770 / 770 520 / 520 Inj 500 ML @ 250 mls/hr IV.SIG Q12H ANA Rx#:[id number] Oral 480 / 480 Output: Urine 800 / 800 500 / 500 Wound Drainage 50 / 50 150 / 150 Left Abdomen 50 / 50 150 / 150 Narrative: GENERAL: NAD, A&Ox3 HEAD: Normocephalic. NECK: Supple, trachea midline. No lymphadenopathy. EYES: No scleral icterus. No injection or drainage. CARDIOVASCULAR: Regular rate and rhythm without murmurs, gallops, or rubs. RESPIRATORY: Breath sounds equal bilaterally. No accessory muscle use. GASTROINTESTINAL: Abdomen soft, tender, nondistended. MUSCULOSKELETAL: No cyanosis, or edema. SKIN: Warm and dry. NEURO: No focal neurological deficits. Results - Labs CBC & Chem 7: 07/21/18 06:05 07/21/18 06:05 Laboratory Results - last 24 hr 07/21/18 07/21/18 06:05 06:05 WBC 6.6 RBC 3.81 L Hgb 11.9 L Hct 35.1 L MCV 92.0 MCH 31.4 MCHC 34.1 RDW 12.6 Plt Count 253 MPV 8.3 Neut % (Auto) 55.7 Lymph % (Auto) 24.9 [place] % (Auto) 14.0 H Eos % (Auto) 4.0 Baso % (Auto) 1.4 Neut # (Auto) 3.7 Lymph # (Auto) 1.7 [place] # (Auto) 0.9 Eos # (Auto) 0.3 Baso # (Auto) 0.1 WBC Differential . Differential Comment Auto diff final Sodium 141 Potassium 4.1 Chloride 103 Carbon Dioxide 30.2 Anion Gap 8 BUN 6 L Creatinine 1.02 Estimated GFR 80 L Random Glucose 92 Calcium 9.0 Total Bilirubin 1.0 AST 10 L ALT 17 Alkaline Phosphatase 52 Total Protein 6.9 Albumin 3.0 L Microbiology 07/19/18 17:40 Blood - Peripheral Aerobic Blood Culture - Preliminary No growth in 2 days 07/19/18 17:40 Blood - Peripheral Anaerobic Blood Culture - Preliminary No growth in 2 days 07/19/18 17:45 Blood - Peripheral Aerobic Blood Culture - Preliminary No growth in 2 days 07/19/18 17:45 Blood - Peripheral Anaerobic Blood Culture - Preliminary No growth in 2 days - Imaging Impressions Abscess Drainage CT 07/20/18 00:00 CONCLUSION: 1. Uncomplicated CT guided drainage. Vascular Ultrasound 07/20/18 00:00 CONCLUSION: 1. Uncomplicated ultrasound guided venous access. Assessment and Plan - Assessment (1) Colonic diverticular abscess Code(s): K57.20 - Diverticulitis of large intestine with perforation and abscess without bleeding Status: Acute (2) Sepsis Code(s): A41.9 - Sepsis, unspecified organism Status: Acute - Plan 43-year-old male admitted secondary to sepsis with diverticular abscess Patient doing well post procedure. Continue monitoring patient clinically. Drain placed, continue monitoring output. Sepsis Resolved Continue to monitor fevers Continue antibiotics Status post drain placement General surgery following Diverticular abscess Status post drain placement Continue on Zosyn Continue on vancomycin IV hydration As needed pain treatments Monitor for improvement Follow CBC Patient tolerated clear liquids and has advanced to full liquid diet Gastroesophageal reflux disease Continue home PPI DVT prophylaxis SCDs (2) Sepsis Qualifiers: Sepsis type: sepsis due to unspecified organism Qualified Code(s): A41.9 - Sepsis, unspecified organism
[2018-07-21] MEDS: Morphine Sulfate Inj 2 MG/ML Vial IV.PUSH PRN (19:12)
[2018-07-21] MEDS: Pantoprazole Inj 40 MG Vial IV.PUSH SCH (20:23)
[2018-07-21] MEDS ORDERED: Pharmacy Ordered Lab Info OTHER ONE (21:45)
[2018-07-22] MEDS: Morphine Inj 4 MG/ML Vial IV.PUSH PRN ×3 (00:33→12:46)
[2018-07-22] MEDS: Sod Chloride 0.9% Inj 1,000 ML IV.CONT SCH ×2 (00:35→10:41)
[2018-07-22] MEDS: Piperacil/Tazo 4.5 GM Premix 4.5 GM/100 ML BAG IV.SIG SCH ×4 (02:51→21:10)
[2018-07-22] MEDS: Morphine Sulfate Inj 2 MG/ML Vial IV.PUSH PRN ×2 (06:23→21:11)
[2018-07-22] MEDS ORDERED: Pharmacy Ordered Lab Info OTHER ONE (09:45)
[2018-07-22] MEDS: Vancomycin Inj 2,000 MG in Sodium Chlor 0.9% Inj 500 ML IV.SIG SCH ×2 (10:32→22:24)
--- NOTE | 2018-07-22 12:40 | P.PNIM ---
Subjective Interval history: Some complaints of abdominal distention. The patient does have flatulence and has been passing some light diarrhea. No new complaints. Physical Exam Vital signs: Vital Signs 07/21/18 17:21 07/21/18 23:36 07/22/18 03:21 Temperature 97.4 F L Pulse Rate 65 Respiratory Rate 18 18 22 Blood Pressure 118/75 Pulse Oximetry 96 07/22/18 06:22 07/22/18 08:00 Temperature 97.6 F Pulse Rate 61 Respiratory Rate 20 18 Blood Pressure 131/80 Pulse Oximetry 98 Intake & Output 07/21/18 07/22/18 07/22/18 18:59 06:59 18:59 Intake Total 2170 / 2170 1720 / 1720 940 / 940 Output Total 150 / 150 900 / 900 Balance 2019 1720 / 1720 40 / 40 Weight 124 kg 124 kg Intake: IV 2170 / 2170 1720 / 1720 100 / 100 NS Inj 1,000 ML @ 100 mls/hr IV 1000 / 1000 1000 / 1000 .CONT .Q10H ANA Rx#:[id number] Zosyn 4.5 GM Premix 4.5 gm In 200 / 200 200 / 200 100 / 100 100 ml @ 200 mls/hr IV.SIG Q6H ANA Rx#:[id number] Vancomycin Inj 2,000 MG In NS 520 / 520 520 / 520 Inj 500 ML @ 250 mls/hr IV.SIG Q12H ANA Rx#:[id number] Oral 840 / 840 Output: Urine 900 / 900 Wound Drainage 150 / 150 Left Abdomen 150 / 150 Other: Date of Last Bowel Movement 07/20/18 Narrative: GENERAL: NAD, A&Ox3 HEAD: Normocephalic. NECK: Supple, trachea midline. No lymphadenopathy. EYES: No scleral icterus. No injection or drainage. CARDIOVASCULAR: Regular rate and rhythm without murmurs, gallops, or rubs. RESPIRATORY: Breath sounds equal bilaterally. No accessory muscle use. GASTROINTESTINAL: Abdomen soft, tender, nondistended. MUSCULOSKELETAL: No cyanosis, or edema. SKIN: Warm and dry. NEURO: No focal neurological deficits. Results - Labs CBC & Chem 7: 07/21/18 06:05 07/21/18 06:05 Laboratory Results - last 24 hr 07/22/18 09:15 Vancomycin Trough 15.1 H Microbiology 07/19/18 17:40 Blood - Peripheral Aerobic Blood Culture - Preliminary No growth in 3 days 07/19/18 17:40 Blood - Peripheral Anaerobic Blood Culture - Preliminary No growth in 3 days 07/19/18 17:45 Blood - Peripheral Aerobic Blood Culture - Preliminary No growth in 3 days 07/19/18 17:45 Blood - Peripheral Anaerobic Blood Culture - Preliminary No growth in 3 days Assessment and Plan - Assessment (1) Colonic diverticular abscess Code(s): K57.20 - Diverticulitis of large intestine with perforation and abscess without bleeding Status: Acute (2) Sepsis Code(s): A41.9 - Sepsis, unspecified organism Status: Acute - Plan 43-year-old male admitted secondary to sepsis with diverticular abscess MS Contin added for better pain control. Telemetry discontinued. IV hydration discontinued. SCDs discontinued. Patient is encouraged to ambulate to help with his abdominal distention. Sepsis Resolved Continue to monitor fevers Continue antibiotics Status post drain placement General surgery following Diverticular abscess Status post drain placement Continue on Zosyn Continue on vancomycin IV hydration As needed pain treatments Monitor for improvement Follow CBC Patient tolerated clear liquids and has advanced to full liquid diet Gastroesophageal reflux disease Continue home PPI DVT prophylaxis SCDs (2) Sepsis Qualifiers: Sepsis type: sepsis due to unspecified organism Qualified Code(s): A41.9 - Sepsis, unspecified organism
[2018-07-22] MEDS ORDERED: Morphine Sulfate 15 MG SR Tablet PO ONE (13:05)
--- NOTE | 2018-07-22 18:45 | P.PN ---
Subjective Interval history: Pain is much better today. Tolerating liquids. Physical Exam Vital signs: Vital Signs 07/21/18 23:36 07/22/18 03:21 07/22/18 06:22 Temperature Pulse Rate Respiratory Rate 18 22 20 Blood Pressure Pulse Oximetry 07/22/18 08:00 07/22/18 12:00 07/22/18 17:53 Temperature 97.6 F 97.9 F Pulse Rate 61 63 72 Respiratory Rate 18 19 18 Blood Pressure 131/80 139/93 H 144/93 H Pulse Oximetry 98 98 98 Intake & Output 07/21/18 07/22/18 07/22/18 18:59 06:59 18:59 Intake Total 2170 / 2170 1720 / 1720 1560 / 1560 Output Total 150 / 150 900 / 900 Balance 2019 1720 / 1720 660 / 660 Weight 124 kg 124 kg Intake: IV 2170 / 2170 1720 / 1720 720 / 720 NS Inj 1,000 ML @ 100 mls/hr IV 1000 / 1000 1000 / 1000 .CONT .Q10H ANA Rx#:[id number] Zosyn 4.5 GM Premix 4.5 gm In 200 / 200 200 / 200 200 / 200 100 ml @ 200 mls/hr IV.SIG Q6H ANA Rx#:[id number] Vancomycin Inj 2,000 MG In NS 520 / 520 520 / 520 520 / 520 Inj 500 ML @ 250 mls/hr IV.SIG Q12H ANA Rx#:[id number] Oral 840 / 840 Output: Urine 900 / 900 Wound Drainage 150 / 150 Left Abdomen 150 / 150 Other: Date of Last Bowel Movement 07/20/18 - Routine Abdominal Exam Present: soft, normoactive bowel sounds, tenderness (Nontender), drain (Minimal , slightly bloody appearing) Results - Labs CBC & Chem 7: 07/21/18 06:05 07/21/18 06:05 Laboratory Results - last 24 hr 07/22/18 09:15 Vancomycin Trough 15.1 H Microbiology 07/19/18 17:40 Blood - Peripheral Aerobic Blood Culture - Preliminary No growth in 3 days 07/19/18 17:40 Blood - Peripheral Anaerobic Blood Culture - Preliminary No growth in 3 days 07/19/18 17:45 Blood - Peripheral Aerobic Blood Culture - Preliminary No growth in 3 days 07/19/18 17:45 Blood - Peripheral Anaerobic Blood Culture - Preliminary No growth in 3 days Assessment and Plan - Assessment (1) Colonic diverticular abscess Code(s): K57.20 - Diverticulitis of large intestine with perforation and abscess without bleeding Status: Acute Plan: Continue drain and IV antibiotics. Will advance diet to low residue. Discussed surgical options with probable surgery in a few weeks. He realizes that he has a higher chance for requiring proximal diversion given his recurrent abscess formation. - Plan Discussed Condition With: Patient Nurse - Attending Attestation I attest that I had a [id number] encounter with the patient on the same day, and personally performed and documented my assessment and findings in the medical record. The following services were provided during this hospital visit: Chart data review, vital sign assessments/reviewing monitor data Review of consultation notes if present Medication orders/review and/or management Ordering and/or reviewing lab tests Ordering and/or interpreting/reviewing x-rays and/or diagnostic studies Care of the patient and discussion of the patient with the care team Documentation time To help prompt me to consider important information that might be impacting today's encounter and assessment, Information from prior notes written by myself or my colleagues may have been "brought forward/copy and pasted" into today's note.
[2018-07-22] MEDS: Morphine Sulfate 15 MG SR Tablet PO SCH (21:10)
[2018-07-22] MEDS: Pantoprazole Inj 40 MG Vial IV.PUSH SCH (21:11)
[2018-07-23] MEDS: Piperacil/Tazo 4.5 GM Premix 4.5 GM/100 ML BAG IV.SIG SCH ×4 (03:22→21:17)
[2018-07-23] MEDS: Morphine Sulfate Inj 2 MG/ML Vial IV.PUSH PRN ×2 (03:23→23:20)
[2018-07-23] MEDS: Morphine Sulfate 15 MG SR Tablet PO SCH ×2 (08:47→21:16)
[2018-07-23] MEDS: Vancomycin Inj 2,000 MG in Sodium Chlor 0.9% Inj 500 ML IV.SIG SCH ×2 (10:00→22:23)
--- NOTE | 2018-07-23 10:56 | P.PNIM ---
Subjective Interval history: Improvement in GI symptoms of distention bowel hyperactivity, compared to yesterday. She was tolerating advancement of diet. No new complaints today. Pain control. Physical Exam Vital signs: Vital Signs 07/22/18 12:00 07/22/18 17:53 07/22/18 20:00 Temperature 97.9 F 98.4 F Pulse Rate 63 72 79 Respiratory Rate 19 18 17 Blood Pressure 139/93 H 144/93 H 123/79 Pulse Oximetry 98 98 98 07/22/18 20:10 07/22/18 21:15 07/22/18 21:40 Temperature Pulse Rate Respiratory Rate 18 17 17 Blood Pressure Pulse Oximetry 07/23/18 00:00 07/23/18 02:30 07/23/18 03:25 Temperature 97.9 F Pulse Rate 70 Respiratory Rate 17 18 17 Blood Pressure 117/74 Pulse Oximetry 96 07/23/18 08:00 Temperature 97.9 F Pulse Rate 71 Respiratory Rate 16 Blood Pressure 131/85 Pulse Oximetry 97 Intake & Output 07/22/18 07/23/18 07/23/18 18:59 06:59 18:59 Intake Total 1560 / 1560 3220 / 3220 Output Total 900 / 900 2014 Balance 660 / 660 1205 / 1205 Weight 124 kg Intake: IV 720 / 720 720 / 720 Zosyn 4.5 GM Premix 4.5 gm In 200 / 200 200 / 200 100 ml @ 200 mls/hr IV.SIG Q6H ANA Rx#:[id number] Vancomycin Inj 2,000 MG In NS 520 / 520 520 / 520 Inj 500 ML @ 250 mls/hr IV.SIG Q12H ANA Rx#:[id number] Oral 840 / 840 2500 / 2500 Output: Urine 900 / 900 1999 / 1999 Wound Drainage Left Abdomen Other: Date of Last Bowel Movement 07/20/18 07/21/18 # Bowel Movements 2 Narrative: GENERAL: NAD, A&Ox3 HEAD: Normocephalic. NECK: Supple, trachea midline. No lymphadenopathy. EYES: No scleral icterus. No injection or drainage. CARDIOVASCULAR: Regular rate and rhythm without murmurs, gallops, or rubs. RESPIRATORY: Breath sounds equal bilaterally. No accessory muscle use. GASTROINTESTINAL: Abdomen soft, tender, nondistended. MUSCULOSKELETAL: No cyanosis, or edema. SKIN: Warm and dry. NEURO: No focal neurological deficits. Results - Labs CBC & Chem 7: 07/21/18 06:05 07/21/18 06:05 Microbiology 07/19/18 17:40 Blood - Peripheral Aerobic Blood Culture - Preliminary No growth in 3 days 07/19/18 17:40 Blood - Peripheral Anaerobic Blood Culture - Preliminary No growth in 3 days 07/19/18 17:45 Blood - Peripheral Aerobic Blood Culture - Preliminary No growth in 3 days 07/19/18 17:45 Blood - Peripheral Anaerobic Blood Culture - Preliminary No growth in 3 days Assessment and Plan - Assessment (1) Colonic diverticular abscess Code(s): K57.20 - Diverticulitis of large intestine with perforation and abscess without bleeding Status: Acute (2) Sepsis Code(s): A41.9 - Sepsis, unspecified organism Status: Acute - Plan 43-year-old male admitted secondary to sepsis with diverticular abscess No acute complaints from patient. He has shows stability overnight. Tolerating diet advancement. Sepsis Resolved Continue to monitor fevers Continue antibiotics Status post drain placement General surgery following Diverticular abscess Status post drain placement Continue on Zosyn Continue on vancomycin IV hydration As needed pain treatments Monitor for improvement Follow CBC Patient tolerated regular diet Gastroesophageal reflux disease Continue home PPI DVT prophylaxis SCDs (2) Sepsis Qualifiers: Sepsis type: sepsis due to unspecified organism Qualified Code(s): A41.9 - Sepsis, unspecified organism
--- NOTE | 2018-07-23 18:53 | P.PNGS ---
Subjective Patient reports: feels better Physical Exam Vital signs: Vital Signs 07/22/18 20:00 07/22/18 20:10 07/22/18 21:15 Temperature 98.4 F Pulse Rate 79 Respiratory Rate 17 18 17 Blood Pressure 123/79 Pulse Oximetry 98 07/22/18 21:40 07/23/18 00:00 07/23/18 02:30 Temperature 97.9 F Pulse Rate 70 Respiratory Rate 17 17 18 Blood Pressure 117/74 Pulse Oximetry 96 07/23/18 03:25 07/23/18 08:00 07/23/18 12:00 Temperature 97.9 F 97.4 F L Pulse Rate 71 64 Respiratory Rate 17 16 16 Blood Pressure 131/85 129/83 Pulse Oximetry 97 98 07/23/18 16:00 Temperature 97.7 F Pulse Rate 66 Respiratory Rate 17 Blood Pressure 124/82 Pulse Oximetry 98 Intake & Output 07/22/18 07/23/18 07/23/18 18:59 06:59 18:59 Intake Total 1560 / 1560 3220 / 3220 620 / 620 Output Total 900 / 900 2014 Balance 660 / 660 1205 / 1205 620 / 620 Weight 124 kg Intake: IV 720 / 720 720 / 720 620 / 620 Zosyn 4.5 GM Premix 4.5 gm In 200 / 200 200 / 200 100 / 100 100 ml @ 200 mls/hr IV.SIG Q6H ANA Rx#:[id number] Vancomycin Inj 2,000 MG In NS 520 / 520 520 / 520 520 / 520 Inj 500 ML @ 250 mls/hr IV.SIG Q12H ANA Rx#:[id number] Oral 840 / 840 2500 / 2500 Output: Urine 900 / 900 1999 / 1999 Wound Drainage Left Abdomen Other: Date of Last Bowel Movement 07/20/18 07/21/18 # Bowel Movements 2 - Constitutional no acute distress - Routine Abdominal Exam Comments: soft, non-tender, no peritonitis, IR drain with old blood Assessment and Plan - Assessment (1) Colonic diverticular abscess Code(s): K57.20 - Diverticulitis of large intestine with perforation and abscess without bleeding Status: Acute - Plan 43yo male with diverticulitis and recurrent IAA, s/p IR drain. stable pain ok no sepsis continue ABX, drain for now and reassess next 24h
[2018-07-23] MEDS: Pantoprazole Inj 40 MG Vial IV.PUSH SCH (21:16)
[2018-07-24] MEDS: Piperacil/Tazo 4.5 GM Premix 4.5 GM/100 ML BAG IV.SIG SCH ×4 (02:50→20:50)
[2018-07-24] MEDS: Morphine Sulfate 15 MG SR Tablet PO SCH ×2 (08:14→21:51)
[2018-07-24] MEDS: Morphine Sulfate Inj 2 MG/ML Vial IV.PUSH PRN (08:15)
[2018-07-24] MEDS: Vancomycin Inj 2,000 MG in Sodium Chlor 0.9% Inj 500 ML IV.SIG SCH ×2 (10:07→21:51)
--- NOTE | 2018-07-24 11:15 | P.PNGS ---
Subjective Interval history: Resting in bed; request increase in pain medications Physical Exam Vital signs: Vital Signs 07/23/18 12:00 07/23/18 16:00 07/23/18 20:00 Temperature 97.4 F L 97.7 F 97.6 F Pulse Rate 64 66 68 Respiratory Rate 16 17 17 Blood Pressure 129/83 124/82 127/78 Pulse Oximetry 98 98 96 07/23/18 22:26 07/23/18 22:52 07/23/18 23:25 Temperature Pulse Rate Respiratory Rate 17 17 17 Blood Pressure Pulse Oximetry 07/24/18 00:00 07/24/18 03:20 07/24/18 04:00 Temperature 98.3 F 97.2 F L Pulse Rate 58 L 54 L Respiratory Rate 17 18 17 Blood Pressure 128/84 139/86 Pulse Oximetry 95 96 Intake & Output 07/23/18 07/24/18 07/24/18 18:59 06:59 18:59 Intake Total 1520 / 1520 2220 / 2220 100 / 100 Output Total 2014 Balance 1520 / 1520 205 / 205 100 / 100 Weight 124 kg Intake: IV 720 / 720 720 / 720 100 / 100 Zosyn 4.5 GM Premix 4.5 gm In 200 / 200 200 / 200 100 / 100 100 ml @ 200 mls/hr IV.SIG Q6H ANA Rx#:[id number] Vancomycin Inj 2,000 MG In NS 520 / 520 520 / 520 Inj 500 ML @ 250 mls/hr IV.SIG Q12H ANA Rx#:[id number] Oral 800 / 800 1500 / 1500 Output: Urine 1999 / 1999 Wound Drainage Left Abdomen Other: # Voids 5 Date of Last Bowel Movement 07/22/18 Narrative: Alert and awake Abd: soft; mild tenderness in lower LEFT sided pelvis Assessment and Plan - Assessment (1) Colonic diverticular abscess Code(s): K57.20 - Diverticulitis of large intestine with perforation and abscess without bleeding Status: Acute Plan: 43 year old male with recurrent diverticular abscess -Low residual diet -Continue antibiotics -Adjusted pain medications -OOB -Continue IR drain -Will discuss with Dr. Upton tomorrow about possible contrast study - Attending Attestation I CERTIFY AND ATTEST THAT I EXAMINED THE PATIENT IN THEIR ROOM. CONTACT WORKER DOCUMENTED OUR VISIT AN ENTERED ORDERS IN THE EMR UNDER MY DIRECT SUPERVISION.. CARE PLAN REVIEWED WITH PATIENT AND STAFF. DARBY GROVER MD FACS
--- NOTE | 2018-07-24 11:24 | P.PNIM ---
Subjective Interval history: No distress. Pain present. Pain treatment suggested. No new complaints from the patient. Physical Exam Vital signs: Vital Signs 07/23/18 12:00 07/23/18 16:00 07/23/18 20:00 Temperature 97.4 F L 97.7 F 97.6 F Pulse Rate 64 66 68 Respiratory Rate 16 17 17 Blood Pressure 129/83 124/82 127/78 Pulse Oximetry 98 98 96 07/23/18 22:26 07/23/18 22:52 07/23/18 23:25 Temperature Pulse Rate Respiratory Rate 17 17 17 Blood Pressure Pulse Oximetry 07/24/18 00:00 07/24/18 03:20 07/24/18 04:00 Temperature 98.3 F 97.2 F L Pulse Rate 58 L 54 L Respiratory Rate 17 18 17 Blood Pressure 128/84 139/86 Pulse Oximetry 95 96 Intake & Output 07/23/18 07/24/18 07/24/18 18:59 06:59 18:59 Intake Total 1520 / 1520 2220 / 2220 100 / 100 Output Total 2014 Balance 1520 / 1520 205 / 205 100 / 100 Weight 124 kg Intake: IV 720 / 720 720 / 720 100 / 100 Zosyn 4.5 GM Premix 4.5 gm In 200 / 200 200 / 200 100 / 100 100 ml @ 200 mls/hr IV.SIG Q6H ANA Rx#:[id number] Vancomycin Inj 2,000 MG In NS 520 / 520 520 / 520 Inj 500 ML @ 250 mls/hr IV.SIG Q12H ANA Rx#:[id number] Oral 800 / 800 1500 / 1500 Output: Urine 1999 / 1999 Wound Drainage Left Abdomen Other: # Voids 5 Date of Last Bowel Movement 07/22/18 Narrative: GENERAL: NAD, A&Ox3 HEAD: Normocephalic. NECK: Supple, trachea midline. No lymphadenopathy. EYES: No scleral icterus. No injection or drainage. CARDIOVASCULAR: Regular rate and rhythm without murmurs, gallops, or rubs. RESPIRATORY: Breath sounds equal bilaterally. No accessory muscle use. GASTROINTESTINAL: Abdomen soft, tender, nondistended. Abdominal drain is present with low output. MUSCULOSKELETAL: No cyanosis, or edema. SKIN: Warm and dry. NEURO: No focal neurological deficits. Results - Labs CBC & Chem 7: 07/21/18 06:05 07/24/18 05:32 Laboratory Results - last 24 hr 07/24/18 05:32 Creatinine 1.23 Estimated GFR 65 L Microbiology 07/19/18 17:40 Blood - Peripheral Aerobic Blood Culture - Final No growth in 5 days 07/19/18 17:40 Blood - Peripheral Anaerobic Blood Culture - Final No growth in 5 days 07/19/18 17:45 Blood - Peripheral Aerobic Blood Culture - Final No growth in 5 days 07/19/18 17:45 Blood - Peripheral Anaerobic Blood Culture - Final No growth in 5 days Assessment and Plan - Assessment (1) Colonic diverticular abscess Code(s): K57.20 - Diverticulitis of large intestine with perforation and abscess without bleeding Status: Acute (2) Sepsis Code(s): A41.9 - Sepsis, unspecified organism Status: Acute - Plan 43-year-old male admitted secondary to sepsis with diverticular abscess Adjustments in pain treatments made. Continue to monitor. Potential surgery. Drain remains present with output. Sepsis Resolved Continue to monitor fevers Continue antibiotics Status post drain placement General surgery following Diverticular abscess Status post drain placement Continue on Zosyn Continue on vancomycin IV hydration As needed pain treatments Monitor for improvement Follow CBC Patient tolerated regular diet Gastroesophageal reflux disease Continue home PPI DVT prophylaxis SCDs (2) Sepsis Qualifiers: Sepsis type: sepsis due to unspecified organism Qualified Code(s): A41.9 - Sepsis, unspecified organism
[2018-07-24] MEDS: oxyCODONE/Acetaminophen 10/325 Tablet PO PRN ×3 (11:49→20:49)
[2018-07-24] MEDS: Morphine Inj 4 MG/ML Vial IV.PUSH PRN ×3 (13:27→23:02)
[2018-07-24] MEDS: Pantoprazole Inj 40 MG Vial IV.PUSH SCH (20:50)
[2018-07-25] MEDS: Piperacil/Tazo 4.5 GM Premix 4.5 GM/100 ML BAG IV.SIG SCH ×3 (02:47→15:26)
[2018-07-25] MEDS: oxyCODONE/Acetaminophen 10/325 Tablet PO PRN ×3 (03:22→13:25)
[2018-07-25] MEDS ORDERED: Diatrizoate Meglum/Diatrizoate Sod Liq 9 ML UDC PO ONE (09:15)
[2018-07-25] MEDS: Morphine Sulfate 15 MG SR Tablet PO SCH (09:20)
[2018-07-25] MEDS: Vancomycin Inj 2,000 MG in Sodium Chlor 0.9% Inj 500 ML IV.SIG SCH (10:35)
[2018-07-25 12:37] VITALS: RESP 17
--- NOTE | 2018-07-25 13:45 | P.PNGS ---
Subjective Interval history: Resting in bed No issues Awaiting CT scan Physical Exam Vital signs: Vital Signs 07/24/18 14:01 07/24/18 16:00 07/24/18 20:00 Temperature 97.4 F L 97.7 F Pulse Rate 64 61 Respiratory Rate 16 18 17 Blood Pressure 122/76 138/87 Pulse Oximetry 96 95 07/24/18 21:20 07/24/18 22:21 07/24/18 23:04 Temperature Pulse Rate Respiratory Rate 16 17 16 Blood Pressure Pulse Oximetry 07/25/18 00:00 07/25/18 03:55 07/25/18 08:00 Temperature 97.7 F 97.8 F Pulse Rate 56 L 60 Respiratory Rate 17 17 18 Blood Pressure 126/80 135/85 Pulse Oximetry 96 97 07/25/18 12:00 Temperature 97.5 F L Pulse Rate 68 Respiratory Rate 17 Blood Pressure 132/89 Pulse Oximetry 97 Intake & Output 07/24/18 07/25/18 07/25/18 18:59 06:59 18:59 Intake Total 1680 / 1680 1200 / 1200 100 / 100 Output Total 650 / 650 1160 / 1160 Balance 1030 / 1030 40 / 40 100 / 100 Weight 124 kg Intake: IV 720 / 720 720 / 720 100 / 100 Zosyn 4.5 GM Premix 4.5 gm In 200 / 200 200 / 200 100 / 100 100 ml @ 200 mls/hr IV.SIG Q6H ANA Rx#:[id number] Vancomycin Inj 2,000 MG In NS 520 / 520 520 / 520 Inj 500 ML @ 250 mls/hr IV.SIG Q12H ANA Rx#:[id number] Oral 960 / 960 480 / 480 Output: Urine 650 / 650 1150 / 1150 Wound Drainage Left Abdomen Other: Date of Last Bowel Movement 07/22/18 07/22/18 # Bowel Movements 0 Narrative: Alert and awake Abd: IR placed drain with no drainage; abd soft minimally tender Assessment and Plan - Assessment (1) Colonic diverticular abscess Code(s): K57.20 - Diverticulitis of large intestine with perforation and abscess without bleeding Status: Acute Plan: 43 year old male with recurrent diverticular abscess -CT scan today -Low residual diet -Continue antibiotics -Adjusted pain medications -OOB -Continue IR drain -Pending CT scan for further recommendations patient seen at bedside feels better await CT ir drain possible d/c pending ct results - Attending Attestation The exam, history, and the medical decision-making described in the above note were completed with the assistance of the mid-level provider. I reviewed and agree with the findings presented. I attest that I had a [id number] encounter with the patient on the same day, and personally performed and documented my assessment and findings in the medical record.
--- NOTE | 2018-07-25 14:52 | CT ---
EXAM DATE: 07/25/2018 2:43 PM EDT AGE/SEX: 43 years / Male INDICATIONS: Evaluate pelvic abscess. CLINICAL DATA: This is the patient's subsequent encounter. Patient reports that signs and symptoms h ave been present for 1 week and indicates a pain score of 0/10. MEDICAL/SURGICAL HISTORY: Diverticulitis. Gastroesophageal reflux disease. Bowel perforation. . Abscess drain. ORAL CONTRAST: Prescribed oral contrast ingested. RADIATION DOSE: 22.89 CTDI (mGy) COMPARISON: [facility] [place], CT ABDOMEN & PELVIS W CONTRAST, 07/19/2018. . TECHNIQUE: Multiple contiguous axial images were obtained through the abdomen and pelvis following b olus infusion of 90 ml Omnipaque 350 (iohexol) nonionic water-soluble contrast as a single exam dos e. Prescribed oral contrast ingested. Using automated exposure control and adjustment of the mA and/ or kV according to patient size, radiation dose was kept as low as reasonably achievable to obtain op timal diagnostic quality images. DICOM format image data is available electronically for review and comparison. FINDINGS: Lower Lungs: The visualized lower lungs are clear. Small hiatal hernia. Liver: The liver has a homogeneous density without space-occupying lesion. There is no dilation of th e biliary tree. Spleen: Homogeneous density without enlargement. Pancreas: Unremarkable without mass or calcification. Kidneys: Normal in size and shape. No evidence of mass or hydronephrosis. Adrenal Glands: Unremarkable. Aorta: The aorta and proximal iliac vessels are grossly unremarkable without aneurysmal dilation. Bowel/Mesentery: The bowel loops are grossly unremarkable. The previously noted prominent abscess in the mid pelvis on the left side has been completely drained. There is a percutaneous drainage cathet er in place with no definite residual fluid remaining in the abscess cavity. There is some surroundin g inflammatory changes in the adjacent mesenteric fat. No free fluid is seen. Abdominal Wall: Intact. Retroperitoneum: No evidence of adenopathy in the retrocrural, para-aortic, or deep pelvic regions. Bladder: Contours are smooth. Reproductive Organs: No abnormal masses or calcifications seen. Inguinal: The inguinal region is unremarkable without evidence of adenopathy. Bony Structures: Unremarkable. CONCLUSION: 1. The previously noted pelvic abscess has been completely drained. Mild inflammatory changes are se en in the mesenteric fat surrounding the drainage catheter. 2. Otherwise, the rest the examination is stable compared to the prior study. Electronically signed by: Diogo Richard MD 07/25/2018 2:50 PM EDT
--- NOTE | 2018-07-25 16:40 | P.PNIM ---
Subjective Interval history: Repeat CT scan obtained today shows improvement of patient's diverticulitis. There is possibility for removal of drainage based on low output based on findings on exam. No new complaints from the patient. Pain control. Physical Exam Vital signs: Vital Signs 07/24/18 20:00 07/24/18 21:20 07/24/18 22:21 Temperature 97.7 F Pulse Rate 61 Respiratory Rate 17 16 17 Blood Pressure 138/87 Pulse Oximetry 95 07/24/18 23:04 07/25/18 00:00 07/25/18 03:55 Temperature 97.7 F Pulse Rate 56 L Respiratory Rate 16 17 17 Blood Pressure 126/80 Pulse Oximetry 96 07/25/18 08:00 07/25/18 12:00 Temperature 97.8 F 97.5 F L Pulse Rate 60 68 Respiratory Rate 18 17 Blood Pressure 135/85 132/89 Pulse Oximetry 97 97 Intake & Output 07/24/18 07/25/18 07/25/18 18:59 06:59 18:59 Intake Total 1680 / 1680 1200 / 1200 720 / 720 Output Total 650 / 650 1160 / 1160 Balance 1030 / 1030 40 / 40 720 / 720 Weight 124 kg Intake: IV 720 / 720 720 / 720 720 / 720 Zosyn 4.5 GM Premix 4.5 gm In 200 / 200 200 / 200 200 / 200 100 ml @ 200 mls/hr IV.SIG Q6H ANA Rx#:[id number] Vancomycin Inj 2,000 MG In NS 520 / 520 520 / 520 520 / 520 Inj 500 ML @ 250 mls/hr IV.SIG Q12H ANA Rx#:[id number] Oral 960 / 960 480 / 480 Output: Urine 650 / 650 1150 / 1150 Wound Drainage Left Abdomen Other: Date of Last Bowel Movement 07/22/18 07/22/18 # Bowel Movements 0 Narrative: GENERAL: NAD, A&Ox3 HEAD: Normocephalic. NECK: Supple, trachea midline. No lymphadenopathy. EYES: No scleral icterus. No injection or drainage. CARDIOVASCULAR: Regular rate and rhythm without murmurs, gallops, or rubs. RESPIRATORY: Breath sounds equal bilaterally. No accessory muscle use. GASTROINTESTINAL: Abdomen soft, tender, nondistended. Abdominal drain is present with low output. MUSCULOSKELETAL: No cyanosis, or edema. SKIN: Warm and dry. NEURO: No focal neurological deficits. Results - Labs CBC & Chem 7: 07/21/18 06:05 07/24/18 05:32 - Imaging Impressions Abdomen/Pelvis CT 07/25/18 07:00 CONCLUSION: 1. The previously noted pelvic abscess has been completely drained. Mild inflammatory changes are seen in the mesenteric fat surrounding the drainage catheter. 2. Otherwise, the rest the examination is stable compared to the prior study. Assessment and Plan - Assessment (1) Colonic diverticular abscess Code(s): K57.20 - Diverticulitis of large intestine with perforation and abscess without bleeding Status: Acute (2) Sepsis Code(s): A41.9 - Sepsis, unspecified organism Status: Acute - Plan 43-year-old male admitted secondary to sepsis with diverticular abscess CT shows improvement today. Continue to monitor. Drain remains present with minimal output. Sepsis Resolved Continue to monitor fevers Continue antibiotics Status post drain placement General surgery following Diverticular abscess Status post drain placement Continue on Zosyn Continue on vancomycin Transition to Augmentin and Flagyl at discharge IV hydration discontinued As needed pain treatments Monitor for improvement Follow CBC Patient tolerated regular diet Gastroesophageal reflux disease Continue home PPI DVT prophylaxis SCDs Discharge Planning Discharge pending surgical clearance (2) Sepsis Qualifiers: Sepsis type: sepsis due to unspecified organism Qualified Code(s): A41.9 - Sepsis, unspecified organism
--- NOTE | 2018-07-25 17:40 | P.DS ---
Date of admission: 07/19/18 20:25 Primary care physician: UNKNOWN Brief History from admission: 43-year-old male with a history of left lower quadrant diverticular abscess with recent admission, drainage on 07/05 which grew beta strep. Patient was discharged on antibiotics, drain with continued improvement. Drain was removed on Tuesday, however patient reports a 1 day history of constant severe left lower quadrant pain, nausea without vomiting. He reports loose bowel movements , nonbloody over the past day. Subjective fever at home. DS: Diagnosis - Discharge Diagnosis (1) Colonic diverticular abscess Status: Acute (2) Sepsis Status: Acute DS: Medications - Discharge Medications Prescriptions: amoxicillin-pot clavulanate [Augmentin] 1 tab PO Q12H #14 tab docusate sodium [Colace] 100 mg PO BID #10 cap Lactobacillus acidophilus 500 mmu cells PO TID #30 cap metronidazole 500 mg PO Q8HR #21 tab oxycodone-acetaminophen 1 tab PO Q6H PRN #20 tab PRN Reason: Pain 3 to 6 DS: Summary Hospital Course: Mr. Arevalo was admitted with diverticulitis with abscess. This was a recurrence of an abscess, however, the location appeared not identical to the preceding abscess. A drain was placed and he was treated with zosyn and vancomycin. A repeat image today shows improvement and resolution of the abscess. General Surgery has cleared this patient for discharge today. He will remain on antibiotics and pain treatments. Medically he is stable and clear for discharge to home. He will follow up with general surgery for drain removal in 3 days. - Time Spent with Patient Total time spent providing and/or coordinating discharge services: Less than 30 minutes - Quality: VTE Deep Vein Thrombosis/Pulmonary Embolism Present on Admission: No Exam Vital signs: Vital Signs 07/24/18 20:00 07/24/18 21:20 07/24/18 22:21 Temperature 97.7 F Pulse Rate 61 Respiratory Rate 17 16 17 Blood Pressure 138/87 Pulse Oximetry 95 07/24/18 23:04 07/25/18 00:00 07/25/18 03:55 Temperature 97.7 F Pulse Rate 56 L Respiratory Rate 16 17 17 Blood Pressure 126/80 Pulse Oximetry 96 07/25/18 08:00 07/25/18 12:00 Temperature 97.8 F 97.5 F L Pulse Rate 60 68 Respiratory Rate 18 17 Blood Pressure 135/85 132/89 Pulse Oximetry 97 97 Intake & Output 07/24/18 07/25/18 07/25/18 18:59 06:59 18:59 Intake Total 1680 / 1680 1200 / 1200 720 / 720 Output Total 650 / 650 1160 / 1160 Balance 1030 / 1030 40 / 40 720 / 720 Weight 124 kg Intake: IV 720 / 720 720 / 720 720 / 720 Zosyn 4.5 GM Premix 4.5 gm In 200 / 200 200 / 200 200 / 200 100 ml @ 200 mls/hr IV.SIG Q6H ANA Rx#:[id number] Vancomycin Inj 2,000 MG In NS 520 / 520 520 / 520 520 / 520 Inj 500 ML @ 250 mls/hr IV.SIG Q12H ANA Rx#:[id number] Oral 960 / 960 480 / 480 Output: Urine 650 / 650 1150 / 1150 Wound Drainage Left Abdomen Other: Date of Last Bowel Movement 07/22/18 07/22/18 # Bowel Movements 0 Results Procedures completed during hospitalization: Abscess Drain Placement - Impressions ITS Impressions Chest X-Ray 07/19/18 17:40 CONCLUSION: Negative examination. Abscess Drainage CT 07/20/18 00:00 CONCLUSION: 1. Uncomplicated CT guided drainage. Vascular Ultrasound 07/20/18 00:00 CONCLUSION: 1. Uncomplicated ultrasound guided venous access. Abdomen/Pelvis CT 07/25/18 07:00 CONCLUSION: 1. The previously noted pelvic abscess has been completely drained. Mild inflammatory changes are seen in the mesenteric fat surrounding the drainage catheter. 2. Otherwise, the rest the examination is stable compared to the prior study. Discharge Plan - Discharge Disposition Patient Disposition: 01 Discharge Home - Discharge Condition Condition: Stable - Discharge Order Discharge Orders: Discharge Order (Routine); Ordered 07/25/18 Ordered By: Molly Nunez - Discharge Details Anticipated Discharge Date: 07/25/18 - Physicians Team Primary Care Provider: UNKNOWN, Attending Provider: Uche Rice Other Providers: Surgeons,[facility] ; Darren Upton MD
[2018-07-25 17:48] VITALS: BP 138/68; PULSE 63; TEMP 97.8; O2SAT 92
--- NOTE | 2018-07-25 20:17 | P.PNGS ---
Subjective Patient reports: no new complaints, feels better, tolerating a regular diet, flatus, bowel movement Physical Exam Vital signs: Vital Signs 07/24/18 21:20 07/24/18 22:21 07/24/18 23:04 Temperature Pulse Rate Respiratory Rate 16 17 16 Blood Pressure Pulse Oximetry 07/25/18 00:00 07/25/18 03:55 07/25/18 08:00 Temperature 97.7 F 97.8 F Pulse Rate 56 L 60 Respiratory Rate 17 17 18 Blood Pressure 126/80 135/85 Pulse Oximetry 96 97 07/25/18 12:00 07/25/18 17:47 Temperature 97.5 F L 97.8 F Pulse Rate 68 63 Respiratory Rate 17 17 Blood Pressure 132/89 138/68 Pulse Oximetry 97 92 L Intake & Output 07/25/18 07/25/18 07/26/18 06:59 18:59 06:59 Intake Total 1200 / 1200 1560 / 1560 Output Total 1160 / 1160 Balance 40 / 40 1560 / 1560 Weight 124 kg Intake: IV 720 / 720 720 / 720 Zosyn 4.5 GM Premix 4.5 gm In 200 / 200 200 / 200 100 ml @ 200 mls/hr IV.SIG Q6H ANA Rx#:[id number] Vancomycin Inj 2,000 MG In NS 520 / 520 520 / 520 Inj 500 ML @ 250 mls/hr IV.SIG Q12H ANA Rx#:[id number] Oral 480 / 480 840 / 840 Output: Urine 1150 / 1150 Wound Drainage 10 / 10 Left Abdomen 10 / 10 Other: # Voids 5 Date of Last Bowel Movement 07/22/18 # Bowel Movements 0 - Routine Respiratory Exam Present: CTA bilaterally - Routine Cardiovascular Exam Present: RRR - Routine Abdominal Exam Present: soft (ellyn serosang) Assessment and Plan - Assessment (1) Colonic diverticular abscess Code(s): K57.20 - Diverticulitis of large intestine with perforation and abscess without bleeding Status: Acute Plan: 43 year old male with recurrent diverticular abscess -CT scan today -Low residual diet -Continue antibiotics -Adjusted pain medications -OOB -Continue IR drain -Pending CT scan for further recommendations - Plan perf colon abscess likely diverticular, wbc better PLAN reg diet IR drain to leg bag IV abx change to po pain control recheck ct shows collapsed cavity and mild inflammation ok to d/c home on abx f/u in clinic on tuesday discussed with patient if recurrent pain or fever return to ed
[2018-07-25] MEDS ORDERED: Pharmacy Ordered Lab Info OTHER SCH (21:45)
== END 2018-07-25 18:55 | disposition home or self-care (01) ==
LOC: NEPC 16:41 → NEDA 20:25 → H7ONC 22:11 → N07 07-21 16:51
PROVIDERS: ADMIT Hospitalist; ATTEND Hospitalist

== ENCOUNTER 2018-08-25 14:39 | Inpatient (IN) ==
[2018-08-25] MEDS ORDERED: Sod Chloride 0.9% Inj 1,000 ML IV.SIG ONE (15:55)
[2018-08-25] MEDS ORDERED: Morphine Inj 4 MG/ML Vial IV.PUSH ONE ×2 (15:55→20:50)
--- NOTE | 2018-08-25 16:16 | ED ---
HPI General Chief Complaint: Abdominal Pain Stated Complaint: doc sent/abd pain Time Seen by Provider: 08/25/18 15:13 Source: patient and RN notes reviewed Mode of arrival: ambulatory Limitations: no limitations History of Present Illness HPI narrative: 43-year-old male presents to the emergency department for evaluation of left lower quadrant abdominal pain. He has recent history of diverticulitis with abscess and perforation. He was admitted and then discharged and readmitted in July. He had a drain placed for a diverticular abscess. He states he was supposed to get a colectomy done on Tuesday. However, the pain started again in 2 days, identical to previously when he had a diverticular abscess. Patient states the pain is a constant 4/10 , increases to a sharp pain intermittently. He denies any vomiting. No previous abdominal surgeries. He is not currently on any prescribed medications. He states he called Dr. Upton's office today recommend he come the emergency department for CT scan. MD complaint: Reports abdominal pain Onset (ago): day(s) (2) Pain Consistency: constant Location: Reports LLQ Severity: moderate Severity scale (1-10): 4 Quality: Reports aching Radiation: Reports none Relieving factors: nothing Exacerbating factors: nothing Context: Reports history of similar episodes Associated symptoms: Reports denies other symptoms Related Data Home Medications Medication Instructions Recorded Confirmed No Known Home Medications 08/25/18 08/25/18 Allergies Allergy/AdvReac Type Severity Reaction Status Date / Time No Known Allergies Allergy Verified 08/25/18 15:48 Review of Systems ROS: all other systems reviewed are negative PMFSH Social History Social History Substance History: No History of Abuse Second Hand Smoke Exposure: No Smoking Status: Former smoker Tobacco Type: Cigarettes How Often Do You Have a Drink Containing Alcohol: Monthly or less Recent Travel in [facility] within the Last 8 Weeks: No Recent Out of Country Travel within the Last 8 Weeks: No Immunization History Tetanus Immunization: >5 Years Exam Narrative Exam Narrative: GENERAL: Well-nourished, well-developed male patient, afebrile. SKIN: Focused skin assessment warm/dry. HEAD: Normocephalic. Atraumatic. EYES: No scleral icterus. No injection or drainage. NECK: Supple, trachea midline. No JVD or lymphadenopathy. CARDIOVASCULAR: Regular rate and rhythm without murmurs, gallops, or rubs. RESPIRATORY: Breath sounds equal bilaterally. No accessory muscle use. Lung sounds are clear to auscultation. GASTROINTESTINAL: Abdomen soft and nondistended. He reports tenderness to the LLQ to palpation. MUSCULOSKELETAL: No cyanosis, or edema. BACK: Nontender without obvious deformity. No CVA tenderness. Course Initial Documented Vital Signs Temperature 99.3 F 08/25/18 14:59 Pulse Rate 110 H 08/25/18 14:59 Respiratory Rate 18 08/25/18 14:59 Blood Pressure 152/97 H 08/25/18 14:59 Pulse Oximetry 96 08/25/18 14:59 Last Documented Vital Signs Temperature 97.2 F L 08/30/18 04:00 Pulse Rate 105 H 08/30/18 04:00 Respiratory Rate 18 08/30/18 04:00 Blood Pressure 149/81 H 08/30/18 04:00 Pulse Oximetry 95 08/30/18 04:00 Medical Decision Making ELAINE Attestation ELAINE supervised visit: Yes Attestation: I, Dr. Darnell, have reviewed the advance practice practitioner' s documentation and am in agreement, made the diagnosis, and the medical decision making was done by me. MDM Narrative Medical decision making narrative: 43-year-old male presents to the emergency department for evaluation of left lower quadrant pain, history of diverticular abscess or perforation.He was sent here by Dr. Upton, general surgeon. IV access obtained. CBC, CMP, lipase, lactic acid, PTT, PT/INR are ordered and pending. CT of the abdomen/pelvis with IV contrast is ordered and pending. Patient is given normal saline 1 L IV bolus, Zofran 4 mg IV, morphine 4 mg IV. CBC shows leukocytosis 13.8. CMP shows no acute abnormality. Lipase is 111. Lactic acid is 1.1. PTT is 27.6. PT/INR is 11.0/1.1. CT abdomen/pelvis shows recurrent diverticular abscess. Patient was started on Zosyn by Dr. Upton's [employer]ACH[employer]PERATOR. I spoke to Dr. Upton who wrote orders for admission. Patient will go to IR tomorrow for drain, or surgery early next week. The patient is agreeable. Medical Screen Exam Complete: Yes Emergency Medical Condition: Yes Differential Diagnosis Differential Diagnosis: diverticulitis vs. diverticular abscess vs. UTI vs. perforation Lab Data Result diagrams: 08/29/18 23:40 08/29/18 23:40 Lab Results 08/25/18 08/25/18 08/25/18 Range/Units 16:00 16:00 16:00 WBC 13.8 H (4.0-11.0) th/mm3 RBC 4.13 L (4.50-5.90) mil/mm3 Hgb 13.6 (13.0-17.0) gm/dL Hct 36.8 L (39.0-51.0) % MCV 89.2 (80.0-100.0) fL MCH 33.0 (27.0-34.0) pg MCHC 37.0 H (32.0-36.0) % RDW 13.9 (11.6-17.2) % Plt Count 294 (150-450) th/mm3 MPV 8.2 (7.0-11.0) fL Prelim Diff (Auto) Slide review pending Neut % (Auto) 70.7 H (16.0-70.0) % Lymph % (Auto) 15.3 (9.0-44.0) % [place] % (Auto) 10.9 H (0.0-8.0) % Eos % (Auto) 2.2 (0.0-4.0) % Baso % (Auto) 0.9 (0.0-2.0) % Neut # (Auto) 9.7 H (1.8-7.7) th/mm3 Lymph # (Auto) 2.1 (1.0-4.8) th/mm3 [place] # (Auto) 1.5 H (0.0-0.9) th/mm3 Eos # (Auto) 0.3 (0.0-0.4) th/mm3 Baso # (Auto) 0.1 (0.0-0.2) th/mm3 WBC Differential . Diff Scan Auto diff confirmed Differential Comment . PT 11.0 (9.8-11.6) sec INR 1.1 Ratio APTT 27.6 (24.3-30.1) sec Sodium 140 (136-145) meq/L Potassium 3.8 (3.5-5.1) meq/L Chloride 103 (98-107) meq/L Carbon Dioxide 26.9 (21.0-32.0) meq/L Anion Gap 10 (5-15) meq/L BUN 9 (7-18) mg/dL Creatinine 0.96 (0.60-1.30) mg/dL Estimated GFR 86 L (>89) mL/min Random Glucose 75 (74-106) mg/dL Lactic Acid (0.4-2.0) mmol/L Calcium 9.3 (8.5-10.1) mg/dL Total Bilirubin 1.4 H (0.2-1.0) mg/dL AST 24 (15-37) U/L ALT 23 (12-78) U/L Alkaline Phosphatase 87 (45-117) U/L Total Protein 8.1 (6.4-8.2) g/dL Albumin 3.6 (3.4-5.0) g/dL Lipase 111 (73-393) U/L Urine Color (Yellw/Straw) Urine Clarity (Clear) Urine pH (5.0-8.5) Ur Specific [place] (1.002-1.035) Urine Protein (Neg-Trace) mg/dL Urine Glucose (UA) (Negative) mg/dL Urine Ketones (Negative) mg/dL Urine Occult Blood (Negative) Urine Nitrate (Negative) Urine Bilirubin (Negative) Urine Urobilinogen (Less than 2) mg/dL Ur Leukocyte Esterase (Negative) Urine WBC (0-5) /hpf Urine Mucus (Occasional) /lpf Micro UA Comment Ur Microscopic Review Urine Culture Comments 08/25/18 08/25/18 08/26/18 Range/Units 16:00 16:10 06:45 WBC 8.5 (4.0-11.0) th/mm3 RBC 4.01 L (4.50-5.90) mil/mm3 Hgb 12.5 L (13.0-17.0) gm/dL Hct 36.0 L (39.0-51.0) % MCV 90.0 (80.0-100.0) fL MCH 31.3 (27.0-34.0) pg MCHC 34.8 (32.0-36.0) % RDW 14.2 (11.6-17.2) % Plt Count 253 (150-450) th/mm3 MPV 8.1 (7.0-11.0) fL Prelim Diff (Auto) Neut % (Auto) 66.9 (16.0-70.0) % Lymph % (Auto) 18.7 (9.0-44.0) % [place] % (Auto) 10.6 H (0.0-8.0) % Eos % (Auto) 3.0 (0.0-4.0) % Baso % (Auto) 0.8 (0.0-2.0) % Neut # (Auto) 5.7 (1.8-7.7) th/mm3 Lymph # (Auto) 1.6 (1.0-4.8) th/mm3 [place] # (Auto) 0.9 (0.0-0.9) th/mm3 Eos # (Auto) 0.3 (0.0-0.4) th/mm3 Baso # (Auto) 0.1 (0.0-0.2) th/mm3 WBC Differential . Diff Scan Differential Comment Auto diff final PT (9.8-11.6) sec INR Ratio APTT (24.3-30.1) sec Sodium (136-145) meq/L Potassium (3.5-5.1) meq/L Chloride (98-107) meq/L Carbon Dioxide (21.0-32.0) meq/L Anion Gap (5-15) meq/L BUN (7-18) mg/dL Creatinine (0.60-1.30) mg/dL Estimated GFR (>89) mL/min Random Glucose (74-106) mg/dL Lactic Acid 1.1 (0.4-2.0) mmol/L Calcium (8.5-10.1) mg/dL Total Bilirubin (0.2-1.0) mg/dL AST (15-37) U/L ALT (12-78) U/L Alkaline Phosphatase (45-117) U/L Total Protein (6.4-8.2) g/dL Albumin (3.4-5.0) g/dL Lipase (73-393) U/L Urine Color Yellow (Yellw/Straw) Urine Clarity Clear (Clear) Urine pH 6.0 (5.0-8.5) Ur Specific [place] 1.013 (1.002-1.035) Urine Protein Negative (Neg-Trace) mg/dL Urine Glucose (UA) Negative (Negative) mg/dL Urine Ketones Negative (Negative) mg/dL Urine Occult Blood Negative (Negative) Urine Nitrate Negative (Negative) Urine Bilirubin Negative (Negative) Urine Urobilinogen 4 or greater (Less than 2) mg/dL Ur Leukocyte Esterase Negative (Negative) Urine WBC 3 (0-5) /hpf Urine Mucus Few H (Occasional) /lpf Micro UA Comment Culture not ind Ur Microscopic Review Not Reportable Urine Culture Comments Culture not ind 08/26/18 08/29/18 08/29/18 Range/Units 06:45 09:53 23:40 WBC 16.6 H (4.0-11.0) th/mm3 RBC 4.26 L (4.50-5.90) mil/mm3 Hgb 13.0 (13.0-17.0) gm/dL Hct 37.1 L (39.0-51.0) % MCV 87.3 (80.0-100.0) fL MCH 30.6 (27.0-34.0) pg MCHC 35.1 (32.0-36.0) % RDW 13.5 (11.6-17.2) % Plt Count 355 D (150-450) th/mm3 MPV 7.5 (7.0-11.0) fL Prelim Diff (Auto) Neut % (Auto) 95.3 H (16.0-70.0) % Lymph % (Auto) 2.1 L (9.0-44.0) % [place] % (Auto) 2.4 (0.0-8.0) % Eos % (Auto) 0.0 (0.0-4.0) % Baso % (Auto) 0.2 (0.0-2.0) % Neut # (Auto) 15.8 H (1.8-7.7) th/mm3 Lymph # (Auto) 0.3 L (1.0-4.8) th/mm3 [place] # (Auto) 0.4 (0.0-0.9) th/mm3 Eos # (Auto) 0.0 (0.0-0.4) th/mm3 Baso # (Auto) 0.0 (0.0-0.2) th/mm3 WBC Differential . Diff Scan Differential Comment Auto diff final PT (9.8-11.6) sec INR Ratio APTT (24.3-30.1) sec Sodium 139 141 (136-145) meq/L Potassium 3.1 L 4.1 (3.5-5.1) meq/L Chloride 101 103 (98-107) meq/L Carbon Dioxide 28.7 31.5 (21.0-32.0) meq/L Anion Gap 9 7 (5-15) meq/L BUN 9 4 L (7-18) mg/dL Creatinine 1.05 0.97 (0.60-1.30) mg/dL Estimated GFR 78 L 85 L (>89) mL/min Random Glucose 77 86 (74-106) mg/dL Lactic Acid (0.4-2.0) mmol/L Calcium 9.1 9.3 (8.5-10.1) mg/dL Total Bilirubin (0.2-1.0) mg/dL AST (15-37) U/L ALT (12-78) U/L Alkaline Phosphatase (45-117) U/L Total Protein (6.4-8.2) g/dL Albumin (3.4-5.0) g/dL Lipase (73-393) U/L Urine Color (Yellw/Straw) Urine Clarity (Clear) Urine pH (5.0-8.5) Ur Specific [place] (1.002-1.035) Urine Protein (Neg-Trace) mg/dL Urine Glucose (UA) (Negative) mg/dL Urine Ketones (Negative) mg/dL Urine Occult Blood (Negative) Urine Nitrate (Negative) Urine Bilirubin (Negative) Urine Urobilinogen (Less than 2) mg/dL Ur Leukocyte Esterase (Negative) Urine WBC (0-5) /hpf Urine Mucus (Occasional) /lpf Micro UA Comment Ur Microscopic Review Urine Culture Comments 08/29/18 Range/Units 23:40 WBC (4.0-11.0) th/mm3 RBC (4.50-5.90) mil/mm3 Hgb (13.0-17.0) gm/dL Hct (39.0-51.0) % MCV (80.0-100.0) fL MCH (27.0-34.0) pg MCHC (32.0-36.0) % RDW (11.6-17.2) % Plt Count (150-450) th/mm3 MPV (7.0-11.0) fL Prelim Diff (Auto) Neut % (Auto) (16.0-70.0) % Lymph % (Auto) (9.0-44.0) % [place] % (Auto) (0.0-8.0) % Eos % (Auto) (0.0-4.0) % Baso % (Auto) (0.0-2.0) % Neut # (Auto) (1.8-7.7) th/mm3 Lymph # (Auto) (1.0-4.8) th/mm3 [place] # (Auto) (0.0-0.9) th/mm3 Eos # (Auto) (0.0-0.4) th/mm3 Baso # (Auto) (0.0-0.2) th/mm3 WBC Differential Diff Scan Differential Comment PT (9.8-11.6) sec INR Ratio APTT (24.3-30.1) sec Sodium 139 (136-145) meq/L Potassium 3.8 (3.5-5.1) meq/L Chloride 101 (98-107) meq/L Carbon Dioxide 26.6 (21.0-32.0) meq/L Anion Gap 11 (5-15) meq/L BUN 6 L (7-18) mg/dL Creatinine 0.88 (0.60-1.30) mg/dL Estimated GFR Greater than 89 (>89) mL/min Random Glucose 178 H (74-106) mg/dL Lactic Acid (0.4-2.0) mmol/L Calcium 8.5 D (8.5-10.1) mg/dL Total Bilirubin (0.2-1.0) mg/dL AST (15-37) U/L ALT (12-78) U/L Alkaline Phosphatase (45-117) U/L Total Protein (6.4-8.2) g/dL Albumin (3.4-5.0) g/dL Lipase (73-393) U/L Urine Color (Yellw/Straw) Urine Clarity (Clear) Urine pH (5.0-8.5) Ur Specific [place] (1.002-1.035) Urine Protein (Neg-Trace) mg/dL Urine Glucose (UA) (Negative) mg/dL Urine Ketones (Negative) mg/dL Urine Occult Blood (Negative) Urine Nitrate (Negative) Urine Bilirubin (Negative) Urine Urobilinogen (Less than 2) mg/dL Ur Leukocyte Esterase (Negative) Urine WBC (0-5) /hpf Urine Mucus (Occasional) /lpf Micro UA Comment Ur Microscopic Review Urine Culture Comments Imaging Data Radiologist's impression: Abdomen/Pelvis CT 08/25/18 15:55 CONCLUSION: 1. Recurrent abscess in the left lower quadrant, presumably a diverticular abscess. Mild acute sigmoid colitis superimposed on chronic diverticular changes. No obstruction. 2. Otherwise chronic stable findings. Small hiatal hernia again seen. Abscess Drainage CT 08/26/18 00:00 CONCLUSION: 1. Uncomplicated CT guided intra-abdominal abscess drainage. Sample of the fluid was sent to microbiology for evaluation. Discharge Plan Discharge Disposition Patient Disposition: 30 Still Patient Discharge Condition Condition: Stable Discharge Details Diagnosis: Colonic diverticular abscess Physicians Team ED Provider: Ross Darnell ED Midlevel Provider: Lachelle Hernandez Primary Care Provider: UNKNOWN, Attending Provider: Darren Upton Other Providers: Surgeons,[facility] Discharge Interventions Interventions: ED Discharge Assessment Last Done: 08/25/18 22:41 Vital Signs Last Done: 08/25/18 18:30 Status ED Status: Left Department Discharge Information Discharge Date/Time: 08/25/18 22:42
[2018-08-25 16:56] LABS: Baso # (Auto) 0.1 th/mm3 (0.0-0.2); Baso % (Auto) 0.9 % (0.0-2.0); Eos # (Auto) 0.3 th/mm3 (0.0-0.4); Eos % (Auto) 2.2 % (0.0-4.0); Hematocrit 36.8 % (39.0-51.0); Hemoglobin 13.6 gm/dL (13.0-17.0); Lymph # (Auto) 2.1 th/mm3 (1.0-4.8); Lymph % (Auto) 15.3 % (9.0-44.0); Mean Corpuscular Volume 89.2 fL (80.0-100.0); Mean Platelet Volume 8.2 fL (7.0-11.0); Mono # (Auto) 1.5 th/mm3 (0.0-0.9); Mono % (Auto) 10.9 % (0.0-8.0); Neut # (Auto) 9.7 th/mm3 (1.8-7.7); Neut % (Auto) 70.7 % (16.0-70.0); Platelet Count 294 th/mm3 (150-450); Red Blood Count 4.13 mil/mm3 (4.50-5.90); Red Cell Distribution Width 13.9 % (11.6-17.2); White Blood Count 13.8 th/mm3 (4.0-11.0)
[2018-08-25 16:57] LABS: Bilirubin,Urine Negative (Negative); Clarity,Urine Clear (Clear); Color,Urine Yellow (Yellw/Straw); Glucose,Urine (UA) Negative (Negative); Leukocyte Esterase,Urine Negative (Negative); Mucus,Urine Few /lpf (Occasional); Nitrite,Urine Negative (Negative); Specific Gravity,Urine 1.013 (1.002-1.035); Urobilinogen,Urine 4 or Greater mg/dL (Less than 2)
[2018-08-25 17:23] LABS: Alkaline Phosphatase 87 U/L (45-117); Total Protein 8.1 g/dL (6.4-8.2)
[2018-08-25 17:28] LABS: Activated Partial Thrombo Time 27.6 sec (24.3-30.1); INR 1.1 Ratio
[2018-08-25] MEDS: Piperacil/Tazo 3.375 GM Premix 50 ML IV.SIG SCH ×3 (17:30→23:04)
[2018-08-25 18:05] LABS: Alanine Aminotransferase 23 U/L (12-78); Albumin 3.6 g/dL (3.4-5.0); Anion Gap 10 meq/L (5-15); Aspartate Aminotransferase 24 U/L (15-37); Blood Urea Nitrogen 9 mg/dL (7-18); Calcium 9.3 mg/dL (8.5-10.1); Carbon Dioxide 26.9 meq/L (21.0-32.0); Chloride 103 meq/L (98-107); Glomerular Filtration Rate 86 mL/min (>89); Glucose,Random 75 mg/dL (74-106); Lipase 111 U/L (73-393); Sodium 140 meq/L (136-145)
[2018-08-25 18:09] LABS: Potassium 3.8 meq/L (3.5-5.1)
--- NOTE | 2018-08-25 20:54 | CT ---
EXAM DATE: 08/25/2018 6:16 PM EDT AGE/SEX: 43 years / Male INDICATIONS: Abdominal pain and diaphoresis; possible abscess. CLINICAL DATA: This is the patient's initial encounter. Patient reports that signs and symptoms have been present for 1 day and indicates a pain score of 7/10. MEDICAL/SURGICAL HISTORY: Diverticulitis. Gastroesophageal reflux disease. Bowel perforation, abscess drain, Tonsillectomy. ORAL CONTRAST: No oral contrast ingested. RADIATION DOSE: 16.87 CTDI (mGy) [place]PAR[place] [facility] [place] 07/25/2018. . TECHNIQUE: Multiple contiguous axial images were obtained through the abdomen and pelvis following b olus infusion of 96 ml Omnipaque 350 (iohexol) nonionic water-soluble contrast as a single exam dos e. No oral contrast ingested. Using automated exposure control and adjustment of the mA and/or kV ac cording to patient size, radiation dose was kept as low as reasonably achievable to obtain optimal di agnostic quality images. DICOM format image data is available electronically for review and comparis on. FINDINGS: Previously seen drainage catheter has been removed. Fluid collection in the left lower quadrant adjac ent to the sigmoid colon has reaccumulated and currently measures approximately 4.8 x 7.2 x 4.7 cm. T here is rim enhancement and small bubbles of gas. There are chronic diverticular changes of the sigmo id colon and mild acute colitis. No obstruction. No free air seen. Solid organs are within normal limits. Small moderate hiatal hernia again seen. No lymphadenopathy. V isualized lung bases are clear. No acute bony abnormality. CONCLUSION: 1. Recurrent abscess in the left lower quadrant, presumably a diverticular abscess. Mild acute sigmo id colitis superimposed on chronic diverticular changes. No obstruction. 2. Otherwise chronic stable findings. Small hiatal hernia again seen. Electronically signed by: Carlyle Hazel MD 08/25/2018 8:52 PM EDT
[2018-08-25] MEDS ORDERED: Post-op Orders (for Pharmacy) OTHER ONE (20:56)
[2018-08-25] MEDS ORDERED: Bisacodyl 10 MG Supp RECTAL PRN (20:56)
[2018-08-25] MEDS ORDERED: Promethazine 25 MG Supp RECTAL PRN (20:56)
[2018-08-25] MEDS: Sod Chloride 0.9% Inj 1,000 ML IV.CONT SCH (23:01)
[2018-08-25] MEDS: Pantoprazole Inj 40 MG Vial IV.PUSH SCH (23:04)
[2018-08-25] MEDS: Senna/Docusate Sodium 8.6/50 MG Tablet PO SCH (23:04)
--- NOTE | 2018-08-25 23:41 | P.HPGS ---
History of Present Illness Service: General Surgery Primary Care Physician: UNKNOWN Chief Complaint: Abdominal pain History of Present Illness: The patient is a 43-year-old male with history of recent diverticular abscess. Presents with acute onset abdominal pain. He states the pain started 2 days ago, continues to get worse. He has associated fevers. Pain was 5/10, currently a 3/10, worse with movement, better with lying still, sharp, located in the left lower quadrant. The patient came to emergency department for evaluation, including leukocytosis, WBC of 13.[address] scan showing a diverticular abscess. The patient has a recent history of perforated diverticulitis in which he was admitted on 07/05/2018 underwent IR drain, improved, was discharged on 07/08/2018 with IR drain. He then had a second occurance with short hospital stay and was planning to undergo elective surgery. He was doing relatively well until 2 days ago when he had recurrence of his symptoms. The patient, of note, had a colonoscopy in February showing essentially normal colon. - Diagnosis (1) Colonic diverticular abscess Inpatient Certification: I certify that the inpatient services were ordered in accordance with Medicare regulations governing the order. This includes certification that hospital inpatient services are reasonable and necessary and in the case of services not specified as inpatient-only under 42 CFR 419.22(n), that they are appropriately provided as inpatient services in accordance to with the 2-midnight benchmark under 43 CFR 412.3(e) Estimated Total Length of Stay (Days): 3 Plans for Post Hospital Care: Home Review of Systems Constitutional: Reports anorexia, Reports excessive sweating, Reports fatigue Gastrointestinal: Reports abdominal pain PMFSH - History History Provided By: Patient - Medical History Medical History: Medical History (Last Reviewed 08/26/18 @ 08:59 by DREW Montalvo) Diverticulitis GERD (gastroesophageal reflux disease) - Surgical History Surgical History: Surgical History (Last Reviewed 08/26/18 @ 08:59 by DREW Montalvo) H/O vasectomy Hx of tonsillectomy Hx of wisdom tooth extraction - Family History Family History: Family History (Last Reviewed 07/19/18 @ 18:52 by DREW Cameron) Other No pertinent family history - Tobacco History Second Hand Smoke Exposure: No Tobacco Use In Past 30 Days: No Smoking Status: Former smoker Tobacco Type: Cigarettes - Alcohol History How Often Do You Have a Drink Containing Alcohol: Monthly or less - Substance Use History Substance History: No History of Abuse - Travel History Recent Travel in the [place] Within the Last 8 Weeks: No Recent Travel Out of the Country Within the Last 8 Weeks: No - Immunization History Tetanus Immunization: >5 Years Hx Influenza Vaccine This Season: No Medications and Allergies Allergies Allergy/AdvReac Type Severity Reaction Status Date / Time No Known Allergies Allergy Verified 08/25/18 15:48 Home Medications Medication Instructions Recorded Confirmed Type No Known Home Medications 08/25/18 08/25/18 History Active Medications: Active Medications Al Hydroxide/Mg Hydroxide (Milk Of Magnesia Liq) 30 ml PO Q12H PRN PRN Reason: Mild Constipation Bisacodyl (Dulcolax Supp) 10 mg RECTAL DAILY PRN PRN Reason: SEVERE CONSITIPATION Piperacillin/Tazobactam/Dextrose (Zosyn 3.375 Gm Premix) 50 mls @ 100 mls/hr IV.SIG Q6H [facility] Last Infusion: 08/25/18 23:34 Dose: Infused Sodium Chloride (Ns Inj) 1,000 mls @ 125 mls/hr IV.CONT .Q8H [facility] Last Admin: 08/25/18 23:01 Dose: 125 mls/hr Lactulose (Lactulose Liq) 30 ml PO DAILY PRN PRN Reason: SEVERE CONSITIPATION Morphine Sulfate (Morphine Inj) 3 mg IV.PUSH Q4H PRN PRN Reason: PAIN 6-10;IF UNABLE TO TAKE PO Ondansetron HCl (Zofran Odt) 4 mg PO Q6H PRN PRN Reason: NAUSEA OR VOMITING Ondansetron HCl (Zofran Inj) 4 mg IV.PUSH Q6H PRN PRN Reason: NAUSEA OR VOMITING Oxycodone/Acetaminophen (Percocet 5/325 Mg) 1 tab PO Q4H PRN PRN Reason: PAIN SCALE 1 TO 5 Pantoprazole Sodium (Protonix Inj) 40 mg IV.PUSH DAILY [facility] Last Admin: 08/25/18 23:04 Dose: 40 mg Promethazine HCl (Phenergan) 25 mg PO Q6H PRN PRN Reason: NAUSEA OR VOMITING Promethazine HCl (Phenergan Supp) 25 mg RECTAL Q6H PRN PRN Reason: NAUSEA OR VOMITING Senna/Docusate Sodium (Vijaya-Colace) 1 tab PO BID [facility] Last Admin: 08/25/18 23:04 Dose: Not Given Sennosides (Senokot) 17.2 mg PO Q12H PRN PRN Reason: Moderate Constipation Sodium Chloride (Ns Flush) 2 ml IV.FLUSH PRN PRN PRN Reason: FLUSH AFTER USING IV ACCESS Sodium Chloride (Ns Flush) 2 ml IV.FLUSH BID [facility] Last Admin: 08/25/18 23:12 Dose: 2 ml Sodium Chloride (Ns Flush) 2 ml IV.FLUSH PRN PRN PRN Reason: FLUSH AFTER USING IV ACCESS Exam Vital signs: Vital Signs 08/25/18 14:59 08/25/18 15:55 08/25/18 18:30 Temperature 99.3 F Pulse Rate 110 H 106 H 89 Respiratory Rate 18 18 18 Blood Pressure 152/97 H 145/94 H 120/70 Pulse Oximetry 96 98 97 Intake & Output 08/25/18 08/25/18 08/26/18 06:59 18:59 06:59 Intake Total 1050 / 1050 50 / 50 Balance 1050 / 1050 50 / 50 Weight 124.738 kg 124.2 kg Intake: IV 1050 / 1050 50 / 50 Zosyn 3.375 GM Premix 50 ML @ 50 / 50 50 / 50 100 mls/hr IV.SIG Q6H [facility] Rx#: [id number] NS Inj 1,000 ML @ Wide Open IV. 1000 / 1000 SIG BOLUS ONE Rx#:[id number] Other: Date of Last Bowel Movement 08/25/18 Weight On Admission 124.2 kg - Constitutional no acute distress - Routine HEENT Exam Head: Present: normocephalic, atraumatic - Routine Neck Exam Present: supple - Routine Respiratory Exam Present: CTA bilaterally - Routine Cardiovascular Exam Present: RRR, S1, S2 - Routine Abdominal Exam Present: soft (+ttp LLQ, no rebound) - Routine Extremities Exam Present: full ROM, pulses intact - Routine Skin Exam Present: intact - Routine Neurological Exam Present: alert, oriented X3 Results - Labs 08/31/18 03:36 08/31/18 03:36 Laboratory Results - last 24 hr 08/25/18 08/25/18 08/25/18 16:00 16:00 16:00 WBC 13.8 H RBC 4.13 L Hgb 13.6 Hct 36.8 L MCV 89.2 MCH 33.0 MCHC 37.0 H RDW 13.9 Plt Count 294 MPV 8.2 Prelim Diff (Auto) Slide review pending Neut % (Auto) 70.7 H Lymph % (Auto) 15.3 [place] % (Auto) 10.9 H Eos % (Auto) 2.2 Baso % (Auto) 0.9 Neut # (Auto) 9.7 H Lymph # (Auto) 2.1 [place] # (Auto) 1.5 H Eos # (Auto) 0.3 Baso # (Auto) 0.1 WBC Differential . Diff Scan Auto diff confirmed Differential Comment . PT 11.0 INR 1.1 APTT 27.6 Sodium 140 Potassium 3.8 Chloride 103 Carbon Dioxide 26.9 Anion Gap 10 BUN 9 Creatinine 0.96 Estimated GFR 86 L Random Glucose 75 Lactic Acid Calcium 9.3 Total Bilirubin 1.4 H AST 24 ALT 23 Alkaline Phosphatase 87 Total Protein 8.1 Albumin 3.6 Lipase 111 Urine Color Urine Clarity Urine pH Ur Specific [place] Urine Protein Urine Glucose (UA) Urine Ketones Urine Occult Blood Urine Nitrate Urine Bilirubin Urine Urobilinogen Ur Leukocyte Esterase Urine WBC Urine Mucus Micro UA Comment Ur Microscopic Review Urine Culture Comments 08/25/18 08/25/18 16:00 16:10 WBC RBC Hgb Hct MCV MCH MCHC RDW Plt Count MPV Prelim Diff (Auto) Neut % (Auto) Lymph % (Auto) [place] % (Auto) Eos % (Auto) Baso % (Auto) Neut # (Auto) Lymph # (Auto) [place] # (Auto) Eos # (Auto) Baso # (Auto) WBC Differential Diff Scan Differential Comment PT INR APTT Sodium Potassium Chloride Carbon Dioxide Anion Gap BUN Creatinine Estimated GFR Random Glucose Lactic Acid 1.1 Calcium Total Bilirubin AST ALT Alkaline Phosphatase Total Protein Albumin Lipase Urine Color Yellow Urine Clarity Clear Urine pH 6.0 Ur Specific [place] 1.013 Urine Protein Negative Urine Glucose (UA) Negative Urine Ketones Negative Urine Occult Blood Negative Urine Nitrate Negative Urine Bilirubin Negative Urine Urobilinogen 4 or greater Ur Leukocyte Esterase Negative Urine WBC 3 Urine Mucus Few H Micro UA Comment Culture not ind Ur Microscopic Review Not Reportable Urine Culture Comments Culture not ind - Imaging Imaging: ITS Impressions Abdomen/Pelvis CT 08/25/18 15:55 CONCLUSION: 1. Recurrent abscess in the left lower quadrant, presumably a diverticular abscess. Mild acute sigmoid colitis superimposed on chronic diverticular changes. No obstruction. 2. Otherwise chronic stable findings. Small hiatal hernia again seen. Caprini VTE Risk Assessment Caprini VTE Risk Assessment: No/Low Risk (score <= 1) Caprini Risk Assessment Model: Point Value = 1 Point Value = 2 Point Value = 3 Point Value = 5 Age 41-60 Minor surgery BMI > 25 kg/m2 Swollen legs Varicose veins or History of unexplained or recurrent spontaneous Oral contraceptives or hormone replacement Sepsis (< 1 month) Serious lung disease, including pneumonia (< 1 month) Abnormal pulmonary function Acute myocardial infarction Congestive heart failure (< 1 month) History of inflammatory bowel disease Medical patient at bed rest Age 61-74 Arthroscopic surgery Major open surgery (> 45 min) Laparoscopic surgery (> 45 min) Malignancy Confined to bed (> 72 hours) Immobilizing plaster cast Central venous access Age >= 75 History of VTE Family history of VTE Factor V Leiden Prothrombin [id number] Lupus anticoagulant Anticardiolipin antibodies Elevated serum homocysteine Heparin-induced thrombocytopenia Other congenital or acquired thrombophilia Stroke (< 1 month) Elective arthroplasty Hip, pelvis, or leg fracture Acute spinal cord injury (< 1 month) Prophylaxis Regimen: Total Risk Factor Score Risk Level Prophylaxis Regimen 0-1 Low Early ambulation 2 Moderate Order ONE of the following: *Sequential Compression Device (SCD) *Heparin 5000 units SQ BID 3-4 Higher Order ONE of the following medications: *Heparin 5000 units SQ TID *Enoxaparin/Lovenox 40 mg SQ daily (WT < 150 kg, CrCl > 30 mL/min) *Enoxaparin/Lovenox 30 mg SQ daily (WT < 150 kg, CrCl > 10-29 mL/min) *Enoxaparin/Lovenox 30 mg SQ BID (WT < 150 kg, CrCl > 30 mL/min) AND/OR *Sequential Compression Device (SCD) 5 or more Highest Order ONE of the following medications: *Heparin 5000 units SQ TID (Preferred with Epidurals) *Enoxaparin/Lovenox 40 mg SQ daily (WT < 150 kg, CrCl > 30 mL/min) *Enoxaparin/Lovenox 30 mg SQ daily (WT < 150 kg, CrCl > 10-29 mL/min) *Enoxaparin/Lovenox 30 mg SQ BID (WT < 150 kg, CrCl > 30 mL/min) AND *Sequential Compression Device (SCD) Assessment and Plan - Assessment (1) Colonic diverticular abscess Code(s): K57.20 - Diverticulitis of large intestine with perforation and abscess without bleeding Status: Acute Plan: -Plan for IR drainage in the morning -NPO for now -Zosyn -IVF -Labs in AM---monitor WBC -Will likely discuss operative intervention during this admission - Plan Discussed Condition With: Dr. Upton Mr. Arevalo + - Attending Attestation patient seen at bedside recurrent abdominal pain recurrent abscess will need IR drain and OR for sigmoidectomy possible colostomy The exam, history, and the medical decision-making described in the above note were completed with the assistance of the mid-level provider. I reviewed and agree with the findings presented. I attest that I had a [id number] encounter with the patient on the same day, and personally performed and documented my assessment and findings in the medical record. H&P: Quality - VTE Deep Vein Thrombosis/Pulmonary Embolism Present on Admission: No
[2018-08-26] MEDS: Morphine Inj 4 MG/ML Vial IV.PUSH PRN ×5 (00:11→16:35)
[2018-08-26] MEDS: Piperacil/Tazo 3.375 GM Premix 50 ML IV.SIG SCH ×4 (04:36→23:09)
[2018-08-26] MEDS: Sod Chloride 0.9% Inj 1,000 ML IV.CONT SCH ×3 (06:31→20:34)
[2018-08-26] MEDS: Pantoprazole Inj 40 MG Vial IV.PUSH SCH (08:04)
[2018-08-26] MEDS: Senna/Docusate Sodium 8.6/50 MG Tablet PO SCH ×2 (08:04→20:34)
--- NOTE | 2018-08-26 09:12 | P.PNGS ---
Subjective Patient reports: feels better, still having pain Physical Exam Vital signs: Vital Signs 08/25/18 14:59 08/25/18 15:55 08/25/18 18:30 Temperature 99.3 F Pulse Rate 110 H 106 H 89 Respiratory Rate 18 18 18 Blood Pressure 152/97 H 145/94 H 120/70 Pulse Oximetry 96 98 97 08/26/18 00:00 08/26/18 08:00 Temperature 98.3 F 97.8 F Pulse Rate 84 72 Respiratory Rate 16 16 Blood Pressure 147/81 H 139/66 Pulse Oximetry 95 98 Intake & Output 08/25/18 08/26/18 08/26/18 18:59 06:59 18:59 Intake Total 1050 / 1050 896 / 896 500 / 500 Output Total 300 / 300 Balance 1050 / 1050 596 / 596 500 / 500 Weight 124.738 kg 124 kg Intake: IV 1050 / 1050 896 / 896 500 / 500 NS Inj 1,000 ML @ 125 mls/hr IV 796 / 796 500 / 500 .CONT .Q8H [facility] Rx#:[id number] Zosyn 3.375 GM Premix 50 ML @ 50 / 50 100 / 100 100 mls/hr IV.SIG Q6H [facility] Rx#: [id number] NS Inj 1,000 ML @ Wide Open IV. 1000 / 1000 SIG BOLUS ONE Rx#:[id number] Oral 0 / 0 Output: Urine 300 / 300 Other: # Voids 1 Date of Last Bowel Movement 08/25/18 Weight On Admission 124.2 kg - Routine Respiratory Exam Present: CTA bilaterally - Routine Cardiovascular Exam Present: RRR - Routine Abdominal Exam Present: soft, tenderness Results - Labs 08/25/18 16:00 08/25/18 16:00 Laboratory Results - last 24 hr 08/25/18 08/25/18 08/25/18 16:00 16:00 16:00 WBC 13.8 H RBC 4.13 L Hgb 13.6 Hct 36.8 L MCV 89.2 MCH 33.0 MCHC 37.0 H RDW 13.9 Plt Count 294 MPV 8.2 Prelim Diff (Auto) Slide review pending Neut % (Auto) 70.7 H Lymph % (Auto) 15.3 [place] % (Auto) 10.9 H Eos % (Auto) 2.2 Baso % (Auto) 0.9 Neut # (Auto) 9.7 H Lymph # (Auto) 2.1 [place] # (Auto) 1.5 H Eos # (Auto) 0.3 Baso # (Auto) 0.1 WBC Differential . Diff Scan Auto diff confirmed Differential Comment . PT 11.0 INR 1.1 APTT 27.6 Sodium 140 Potassium 3.8 Chloride 103 Carbon Dioxide 26.9 Anion Gap 10 BUN 9 Creatinine 0.96 Estimated GFR 86 L Random Glucose 75 Lactic Acid Calcium 9.3 Total Bilirubin 1.4 H AST 24 ALT 23 Alkaline Phosphatase 87 Total Protein 8.1 Albumin 3.6 Lipase 111 Urine Color Urine Clarity Urine pH Ur Specific [place] Urine Protein Urine Glucose (UA) Urine Ketones Urine Occult Blood Urine Nitrate Urine Bilirubin Urine Urobilinogen Ur Leukocyte Esterase Urine WBC Urine Mucus Micro UA Comment Ur Microscopic Review Urine Culture Comments 08/25/18 08/25/18 16:00 16:10 WBC RBC Hgb Hct MCV MCH MCHC RDW Plt Count MPV Prelim Diff (Auto) Neut % (Auto) Lymph % (Auto) [place] % (Auto) Eos % (Auto) Baso % (Auto) Neut # (Auto) Lymph # (Auto) [place] # (Auto) Eos # (Auto) Baso # (Auto) WBC Differential Diff Scan Differential Comment PT INR APTT Sodium Potassium Chloride Carbon Dioxide Anion Gap BUN Creatinine Estimated GFR Random Glucose Lactic Acid 1.1 Calcium Total Bilirubin AST ALT Alkaline Phosphatase Total Protein Albumin Lipase Urine Color Yellow Urine Clarity Clear Urine pH 6.0 Ur Specific [place] 1.013 Urine Protein Negative Urine Glucose (UA) Negative Urine Ketones Negative Urine Occult Blood Negative Urine Nitrate Negative Urine Bilirubin Negative Urine Urobilinogen 4 or greater Ur Leukocyte Esterase Negative Urine WBC 3 Urine Mucus Few H Micro UA Comment Culture not ind Ur Microscopic Review Not Reportable Urine Culture Comments Culture not ind - Imaging Imaging: ITS Impressions Abdomen/Pelvis CT 08/25/18 15:55 CONCLUSION: 1. Recurrent abscess in the left lower quadrant, presumably a diverticular abscess. Mild acute sigmoid colitis superimposed on chronic diverticular changes. No obstruction. 2. Otherwise chronic stable findings. Small hiatal hernia again seen. Assessment and Plan - Assessment (1) Colonic diverticular abscess Code(s): K57.20 - Diverticulitis of large intestine with perforation and abscess without bleeding Status: Acute Plan: -Plan for IR drainage in the morning -NPO for now, ok for full liq diet after drain placement -Zosyn -IVF -Labs in AM---monitor WBC -Will likely discuss operative intervention during this admission
[2018-08-26 09:28] LABS: Baso # (Auto) 0.1 th/mm3 (0.0-0.2); Baso % (Auto) 0.8 % (0.0-2.0); Eos # (Auto) 0.3 th/mm3 (0.0-0.4); Hemoglobin 12.5 gm/dL (13.0-17.0); Lymph # (Auto) 1.6 th/mm3 (1.0-4.8); Lymph % (Auto) 18.7 % (9.0-44.0); Mean Corpuscular HGB Conc 34.8 % (32.0-36.0); Mean Corpuscular Hemoglobin 31.3 pg (27.0-34.0); Mean Platelet Volume 8.1 fL (7.0-11.0); Mono # (Auto) 0.9 th/mm3 (0.0-0.9); Mono % (Auto) 10.6 % (0.0-8.0); Neut # (Auto) 5.7 th/mm3 (1.8-7.7); Neut % (Auto) 66.9 % (16.0-70.0); Platelet Count 253 th/mm3 (150-450); Red Blood Count 4.01 mil/mm3 (4.50-5.90); Red Cell Distribution Width 14.2 % (11.6-17.2); White Blood Count 8.5 th/mm3 (4.0-11.0)
[2018-08-26 10:03] LABS: Calcium 9.1 mg/dL (8.5-10.1); Carbon Dioxide 28.7 meq/L (21.0-32.0); Potassium 3.1 meq/L (3.5-5.1)
[2018-08-26] MEDS ORDERED: fentaNYL Citrate Inj 250 MCG/5 ML Ampul ONE (17:21)
[2018-08-26] MEDS ORDERED: Lidocaine 1%/Epinephrine 1:100,000 Inj 20 ML Vial ONE (17:23)
--- NOTE | 2018-08-26 18:48 | P.RAD ---
Post CT Procedure Prog Note - Pre Procedure Diagnosis (1) Colonic diverticular abscess - Post Procedure Diagnosis (1) Colonic diverticular abscess - Procedure Information Procedure Date: 08/26/18 Supervising Radiologist: Radames Snowden Jr, MD Proceduralist/Assist: Raz Anesthesia: Conscious Sedation - Plan of Activity Patient to Unit: PACU Patient condition: Good See PACS Report for procedural detail/treatment. Drainage Procedure CT left Abscess Drainage Placement [place] Tube Size: 8 Drainage: Suction Fluid Description: Purulent Findings: Placed abscess drainage catheter in pelvic abscess adjacent to sigmoid colon. 40mL of purulent fluid obtained. Sutured in place. Sample to micro.
--- NOTE | 2018-08-26 19:06 | CT ---
EXAM DATE: 08/26/2018 5:26 PM EDT AGE/SEX: 43 years / Male INDICATIONS: Abscess. CLINICAL DATA: This is the patient's initial encounter. Patient reports that signs and symptoms have been present for 1 day and indicates a pain score of 5/10. MEDICAL/SURGICAL HISTORY: Diverticulitis. Tonsillectomy. COMPARISON: . SEDATION TIME (min): 30 BIOPSY SITE: pelvic abscess MEDICATION(S): 5mg midazolam (Versed) IV 250mcg fentanyl (Sublimaze) IV DEVICE(S): 8 Fr Cecille FLUID: Total volume of 40 of purulent fluid was removed. Fluid was sent to lab for ordered studies.. . . PROCEDURE : CT guided drainage of the pelvic abscess. Conscious sedation with continuous EKG and oximetry monitoring. EKG and oximetry remained stable throughout the procedure. I reviewed the patient's prior CT scan 08/25/2018. The risks, benefits and alternatives to the procedu re were explained and verbal and written consent was obtained. Using automated exposure control and a djustment of the mA and/or kV according to patient size, radiation dose was kept as low as reasonably achievable to obtain optimal diagnostic quality images. The site was prepped in sterile fashion. Full sterile technique was used, including cap, mask, sterile gloves and gown and a large sterile she et. Hand hygiene and 2% chlorhexidine and/or betadine/alcohol prep was utilized per protocol for cut aneous antisepsis. The skin and subcutaneous tissues were infiltrated with local anesthetic solution . DICOM format image data is available electronically for review and comparison. Using CT guidance the left lower quadrant intra-abdominal abscess was localized. Drainage was perfor med using the prescribed catheter. A left anterolateral approach was utilized. An 8 [place] drain was placed. 40 mL of purulent material was aspirated. A sample was sent for evaluation. The drain was sut ured in place. The patient tolerated the procedure well and there were no complications. The patient tolerated the procedure well and there were no complications. The patient was sent to post anesthesia recovery in s table condition. CONCLUSION: 1. Uncomplicated CT guided intra-abdominal abscess drainage. Sample of the fluid was sent to [facility] for evaluation. Electronically signed by: Radames Snowden MD 08/26/2018 7:05 PM EDT
[2018-08-27] MEDS: Morphine Inj 4 MG/ML Vial IV.PUSH PRN ×5 (04:57→22:15)
[2018-08-27] MEDS: Piperacil/Tazo 3.375 GM Premix 50 ML IV.SIG SCH ×4 (04:58→22:16)
[2018-08-27] MEDS: Sod Chloride 0.9% Inj 1,000 ML IV.CONT SCH ×3 (04:58→22:16)
[2018-08-27] MEDS: Senna/Docusate Sodium 8.6/50 MG Tablet PO SCH ×2 (08:03→20:07)
[2018-08-27] MEDS: Pantoprazole Inj 40 MG Vial IV.PUSH SCH (08:07)
--- NOTE | 2018-08-27 14:41 | P.DIET ---
Nutritional Evaluation Type of nutrition evaluation: initial Nutrition screening: Weight Loss > 10 lbs Subjective Subjective Comments: Pt reports unintentional recent wt loss. Objective - Diagnosis Colonic Diverticular Abscess - Objective [place] body weight: 84 kg % IBW: 148 Body Weight Used for Calculations: IBW Energy Needs - Lower Range (kCal/kg): 25 Energy Needs - Upper Range (kCal/kg): 30 Lower Limit kCal/kg (kCals): 2,100 Upper Limit kCal/kg (kCals): 2,520 Lower Limit Protein Factor (Grams per Kg): 1.2 Upper Limit Protein Factor (Grams per Kg): 1.5 Lower Protein Needs (Protein): 101 Upper Protein Needs (Protein): 126 Dietitian Reviewed in Medical Record: Current diet, Curent medications, Intake & Output, Labs, Medical history Diet Order: [place] Objective Comments: PMH: Diverticulitis, GERD Assessment Assessment: Pt at nutritional risk r/t current clinical status. Pt s/p procedure r/t colonic abscess. He is currently on a [place] diet, receiving Ensure tid. Pt's nutritional needs as assessed above. Adequate po intake has not yet been established. Will monitor diet advancement and po intake. Recommendations: [place] diet with Ensure tid Dietitian to Monitor: Lab values, Intake & Output, Diet tolerance, Weight change , Diet advancement, Medical course
--- NOTE | 2018-08-27 17:48 | P.PN ---
Subjective Interval history: Pain somewhat abated after drain placed. Bloody drainage in the bag Physical Exam Vital signs: Vital Signs 08/26/18 18:43 08/26/18 18:45 08/26/18 19:00 Temperature 98.7 F 98.3 F Pulse Rate 87 88 85 Respiratory Rate 22 23 23 Blood Pressure 128/82 129/82 119/71 Pulse Oximetry 97 98 94 L 08/26/18 20:00 08/27/18 00:00 08/27/18 08:00 Temperature 98.3 F 97.9 F 97.4 F L Pulse Rate 85 91 H 66 Respiratory Rate 18 18 17 Blood Pressure 140/69 130/62 117/75 Pulse Oximetry 97 96 97 08/27/18 12:00 08/27/18 16:00 Temperature 98.0 F 97.4 F L Pulse Rate 71 71 Respiratory Rate 17 18 Blood Pressure 136/73 129/85 Pulse Oximetry 99 98 Intake & Output 08/26/18 08/27/18 08/27/18 18:59 06:59 18:59 Intake Total 600 / 600 2100 / 2100 1100 / 1100 Output Total 1000 / 1000 300 / 300 Balance -400 / -400 1800 / 1800 1100 / 1100 Weight 126.8 kg Intake: IV 600 / 600 2100 / 2100 1100 / 1100 NS Inj 1,000 ML @ 125 mls/hr IV 500 / 500 2000 / 2000 1000 / 1000 .CONT .Q8H ANA Rx#:[id number] Zosyn 3.375 GM Premix 50 ML @ 100 / 100 100 / 100 100 / 100 100 mls/hr IV.SIG Q6H ANA Rx#: [id number] Oral 0 / 0 Output: Urine 1000 / 1000 200 / 200 Wound Drainage 100 / 100 Left Lower Abdomen Pigtail 100 / 100 Other: Date of Last Bowel Movement 08/25/18 08/25/18 08/25/18 # Bowel Movements 0 - Routine Abdominal Exam Present: soft, drain (Bloody drainage, approximately 20 mils) Results - Labs CBC & Chem 7: 08/26/18 06:45 08/26/18 06:45 Microbiology 08/26/18 18:20 Fluid - Other Gram Stain - Final 08/26/18 18:20 Fluid - Other Body Fluid Culture - Preliminary - Imaging Impressions Abscess Drainage CT 08/26/18 00:00 CONCLUSION: 1. Uncomplicated CT guided intra-abdominal abscess drainage. Sample of the fluid was sent to microbiology for evaluation. Assessment and Plan - Assessment (1) Colonic diverticular abscess Code(s): K57.20 - Diverticulitis of large intestine with perforation and abscess without bleeding Status: Acute Plan: Continue drainage; gentle bowel prep over the next day or so. Original surgery was planned for Tuesday; Dr. Upton will try to move up to Tuesday if he is able to get time sooner. Bowel prep on Tuesday if surgery is on Tuesday, otherwise bowel prep on Tuesday for surgery Tuesday. - Plan Discussed Condition With: Patient and Nurse - Attending Attestation I attest that I had a [id number] encounter with the patient on the same day, and personally performed and documented my assessment and findings in the medical record. The following services were provided during this hospital visit: Chart data review, vital sign assessments/reviewing monitor data Review of consultation notes if present Medication orders/review and/or management Ordering and/or reviewing lab tests Ordering and/or interpreting/reviewing x-rays and/or diagnostic studies Care of the patient and discussion of the patient with the care team Documentation time To help prompt me to consider important information that might be impacting today's encounter and assessment, Information from prior notes written by myself or my colleagues may have been "brought forward/copy and pasted" into today's note.
[2018-08-28] MEDS: Morphine Inj 4 MG/ML Vial IV.PUSH PRN ×2 (02:06→05:33)
[2018-08-28] MEDS: Piperacil/Tazo 3.375 GM Premix 50 ML IV.SIG SCH ×3 (04:27→17:03)
[2018-08-28] MEDS: Sod Chloride 0.9% Inj 1,000 ML IV.CONT SCH (07:15)
[2018-08-28] MEDS: Pantoprazole Inj 40 MG Vial IV.PUSH SCH (08:49)
[2018-08-28] MEDS: Senna/Docusate Sodium 8.6/50 MG Tablet PO SCH ×2 (08:49→21:26)
[2018-08-28] MEDS ORDERED: Ibuprofen 600 MG Tablet PO PRN ×2 (12:09→13:13)
--- NOTE | 2018-08-28 12:23 | P.PNGS ---
Subjective Patient reports: no new complaints, feels better Physical Exam Vital signs: Vital Signs 08/27/18 16:00 08/27/18 20:00 08/28/18 00:00 Temperature 97.4 F L 97.5 F L 97.8 F Pulse Rate 71 78 72 Respiratory Rate 18 18 18 Blood Pressure 129/85 141/91 H 111/58 L Pulse Oximetry 98 98 98 08/28/18 08:00 08/28/18 12:00 Temperature 97.4 F L 97.6 F Pulse Rate 65 66 Respiratory Rate 17 18 Blood Pressure 133/84 139/86 Pulse Oximetry 98 99 Intake & Output 08/27/18 08/28/18 08/28/18 18:59 06:59 18:59 Intake Total 2500 / 2500 2100 / 2100 Output Total 800 / 800 30 / 30 Balance 2500 / 2500 1300 / 1300 -30 / -30 Weight 127.3 kg Intake: IV 1100 / 1100 2100 / 2100 NS Inj 1,000 ML @ 125 mls/hr IV 1000 / 1000 2000 / 2000 .CONT .Q8H ANA Rx#:[id number] Zosyn 3.375 GM Premix 50 ML @ 100 / 100 100 / 100 100 mls/hr IV.SIG Q6H ANA Rx#: [id number] Oral 1400 / 1400 Output: Urine 800 / 800 Wound Drainage Left Lower Abdomen Pigtail 30 Other: # Voids 3 Date of Last Bowel Movement 08/25/18 08/25/18 # Bowel Movements 0 - Routine Respiratory Exam Present: CTA bilaterally - Routine Cardiovascular Exam Present: RRR - Routine Abdominal Exam Present: soft (mild ttp, drain in place) Results - Labs 08/26/18 06:45 08/26/18 06:45 - Imaging Imaging: ITS Impressions Abdomen/Pelvis CT 08/25/18 15:55 CONCLUSION: 1. Recurrent abscess in the left lower quadrant, presumably a diverticular abscess. Mild acute sigmoid colitis superimposed on chronic diverticular changes. No obstruction. 2. Otherwise chronic stable findings. Small hiatal hernia again seen. Abscess Drainage CT 08/26/18 00:00 CONCLUSION: 1. Uncomplicated CT guided intra-abdominal abscess drainage. Sample of the fluid was sent to microbiology for evaluation. Assessment and Plan - Assessment (1) Colonic diverticular abscess Code(s): K57.20 - Diverticulitis of large intestine with perforation and abscess without bleeding Status: Acute Plan: -Plan for or tomorrow -NPO after mn -clear diet -Zosyn -IVF -Labs in AM---monitor WBC -bowel prep
[2018-08-28] MEDS ORDERED: PEG 3350/E-Lyte Soln 4000 ML Bottle PO ONE (12:45)
--- NOTE | 2018-08-28 16:06 | P.PNWCN ---
Wound Care Nurse Consult Description: Consult for stoma marking per DREW Kline Communicated with: IVÁN Meehan ARNP Additional information: Patient seen on for stoma marking/possible colostomy. Patient sat up, stood up, bent forward, coughed etc. 2 sites chosen for possible colostomy. Sites chosen are within the rectus muscles, >2 inches outside umbilicus area, and not in any creases. Sites can be visualized by patient for stoma care. Bowel Diversion Stoma - Additional Information Additional Information: Patient marked for possible colostomy.
[2018-08-29] MEDS: Piperacil/Tazo 3.375 GM Premix 50 ML IV.SIG SCH ×5 (00:22→23:20)
[2018-08-29] MEDS: Sod Chloride 0.9% Inj 1,000 ML IV.CONT SCH ×7 (00:22→23:27)
[2018-08-29] MEDS: Pantoprazole Inj 40 MG Vial IV.PUSH SCH (08:33)
[2018-08-29] MEDS: Senna/Docusate Sodium 8.6/50 MG Tablet PO SCH ×2 (08:33→22:44)
[2018-08-29 10:43] LABS: Calcium 9.3 mg/dL (8.5-10.1); Carbon Dioxide 31.5 meq/L (21.0-32.0); Potassium 4.1 meq/L (3.5-5.1)
[2018-08-29] MEDS ORDERED: Sodium Chlor 0.9% Inj 500 ML IV.CONT ONE (11:15)
[2018-08-29] MEDS ORDERED: Chlorhexidine Gluconate 2% 1 Pack (2 Cloths) TOPICAL ONE (11:15)
[2018-08-29] MEDS ORDERED: Metoprolol Tartrate 25 MG Tablet PO ONE (11:15)
[2018-08-29] MEDS ORDERED: Bupivacaine/Epinephrine Inj 0.25% 50 ML Vial ONE (13:30)
[2018-08-29] MEDS ORDERED: Glycopyrrolate Inj 1 MG/5 ML Syringe IV.PUSH ONE (14:17)
[2018-08-29] MEDS ORDERED: Lidocaine PF 1% Inj 5 ML Syringe OTHER ONE (14:17)
[2018-08-29] MEDS ORDERED: Neostigmine Inj 5 MG/5 ML Syringe IV.PUSH ONE (14:17)
[2018-08-29] MEDS ORDERED: [UNRECOGNIZED DRUG - OTHER] IV.CONT ONE (14:17)
[2018-08-29] MEDS ORDERED: DEXTROSE IV.CONT ONE (14:17)
[2018-08-29] MEDS ORDERED: fentaNYL Citrate Inj 250 MCG/5 ML Ampul ONE (18:58)
[2018-08-29] MEDS ORDERED: fentaNYL Citrate Inj 100 MCG/2 ML Ampul ONE ×2 (19:06→19:07)
[2018-08-29] MEDS ORDERED: Methylene Blue Inj 100 MG/10 ML Vial OTHER ONE (21:30)
[2018-08-29] MEDS ORDERED: Naloxone Inj 0.4 MG/ML Vial IV.PUSH PRN ×2 (22:27→23:18)
[2018-08-29] MEDS ORDERED: *Meperidine Inj 25 MG/ML Vial PERIprocedural Use ONLY ONE (22:28)
--- NOTE | 2018-08-29 22:30 | P.OP ---
- Preoperative Diagnosis (1) Colonic diverticular abscess - Postoperative Diagnosis (1) Colonic diverticular abscess Procedure: robotic asst lap sigmoidectomy colostomy extensive SHERRI >3 hours Anesthesia: GETA Surgeon: Darren Upton MD Pathology: other (sigmoid colon) Operation and Findings: multiple inflamatory adhesions
[2018-08-29] MEDS ORDERED: Morphine Inj 30 MG/30 ML PCA.VIAL PCA ONE (22:53)
[2018-08-29] MEDS ORDERED: *morphine SULFATE 4 MG/ML PERIprocedure ONLY ONE ×2 (22:57→23:14)
[2018-08-29] MEDS ORDERED: Morphine Inj 30 MG/30 ML PCA.VIAL PCA PRN (23:18)
[2018-08-29 23:55] LABS: Baso % (Auto) 0.2 % (0.0-2.0); Hematocrit 37.1 % (39.0-51.0); Lymph # (Auto) 0.3 th/mm3 (1.0-4.8); Lymph % (Auto) 2.1 % (9.0-44.0); Mean Corpuscular HGB Conc 35.1 % (32.0-36.0); Mean Corpuscular Hemoglobin 30.6 pg (27.0-34.0); Mean Corpuscular Volume 87.3 fL (80.0-100.0); Mean Platelet Volume 7.5 fL (7.0-11.0); Mono # (Auto) 0.4 th/mm3 (0.0-0.9); Mono % (Auto) 2.4 % (0.0-8.0); Neut # (Auto) 15.8 th/mm3 (1.8-7.7); Neut % (Auto) 95.3 % (16.0-70.0); Platelet Count 355 th/mm3 (150-450); Red Blood Count 4.26 mil/mm3 (4.50-5.90); Red Cell Distribution Width 13.5 % (11.6-17.2); White Blood Count 16.6 th/mm3 (4.0-11.0)
[2018-08-30 00:10] LABS: Anion Gap 11 meq/L (5-15); Blood Urea Nitrogen 6 mg/dL (7-18); Calcium 8.5 mg/dL (8.5-10.1); Carbon Dioxide 26.6 meq/L (21.0-32.0); Chloride 101 meq/L (98-107); Glomerular Filtration Rate Greater Than 89 mL/min (>89); Glucose,Random 178 mg/dL (74-106); Potassium 3.8 meq/L (3.5-5.1); Sodium 139 meq/L (136-145)
[2018-08-30] MEDS: Piperacil/Tazo 3.375 GM Premix 50 ML IV.SIG SCH ×4 (05:02→22:52)
[2018-08-30] MEDS: Sod Chloride 0.9% Inj 1,000 ML IV.CONT SCH ×3 (05:04→20:42)
[2018-08-30] MEDS ORDERED: Naloxone Inj 0.4 MG/ML Vial IV.PUSH PRN (06:51)
[2018-08-30] MEDS: Morphine Inj 30 MG/30 ML PCA.VIAL PCA PRN ×2 (08:11→16:14)
[2018-08-30] MEDS: Senna/Docusate Sodium 8.6/50 MG Tablet PO SCH ×2 (09:12→20:42)
[2018-08-30] MEDS: Pantoprazole Inj 40 MG Vial IV.PUSH SCH (09:12)
--- NOTE | 2018-08-30 10:09 | P.PNGS ---
Subjective Patient reports: still having pain, tolerating liquids well, no flatus Physical Exam Vital signs: Vital Signs 08/29/18 12:00 08/29/18 22:26 08/29/18 22:30 Temperature 98.1 F 98 F Pulse Rate 60 105 H 104 H Respiratory Rate 18 22 22 Blood Pressure 150/89 H 129/83 166/94 H Pulse Oximetry 95 93 L 93 L 08/29/18 22:45 08/29/18 23:00 08/29/18 23:15 Temperature Pulse Rate 98 H 100 H 100 H Respiratory Rate 19 20 19 Blood Pressure 154/88 H 158/96 H 149/94 H Pulse Oximetry 19 L 93 L 96 08/29/18 23:16 08/29/18 23:30 08/29/18 23:45 Temperature Pulse Rate 99 H 101 H Respiratory Rate 20 19 18 Blood Pressure 157/98 H 147/92 H Pulse Oximetry 96 97 08/29/18 23:48 08/30/18 00:00 08/30/18 00:56 Temperature 98.8 F 97.7 F Pulse Rate 107 H 98 H Respiratory Rate 18 19 18 Blood Pressure 144/88 H 137/85 Pulse Oximetry 94 L 93 L 08/30/18 04:00 08/30/18 08:00 08/30/18 08:41 Temperature 97.2 F L 97.9 F Pulse Rate 105 H 104 H Respiratory Rate 18 16 17 Blood Pressure 149/81 H 137/70 Pulse Oximetry 95 93 L Intake & Output 08/29/18 08/30/18 08/30/18 18:59 06:59 18:59 Intake Total 1100 / 1100 6844 / 6844 120 / 120 Output Total 2490 / 2490 2510 / 2510 Balance 1100 / 1100 4354 / 4354 -2390 / -2390 Weight 125.8 kg Intake: IV 1100 / 1100 2844 / 2844 LR 1000 mL Inj 1,000 ML @ 30 1000 / 1000 mls/hr IV.CONT .Q24H ONE Rx#: [id number] NS Inj 1,000 ML @ 125 mls/hr IV 1000 / 1000 1744 / 1744 .CONT .Q8H ANA Rx#:[id number] Zosyn 3.375 GM Premix 50 ML @ 100 / 100 100 / 100 100 mls/hr IV.SIG Q6H ANA Rx#: [id number] Oral 120 / 120 Anesthesia Amount 4000 / 4000 Output: Estimated Blood Loss 500 / 500 Urine Amount (Catheter) 1900 / 1900 2450 / 2450 Indwelling Urethral Catheter 1900 / 1900 2450 / 2450 Wound Drainage 90 / 90 60 / 60 # 1 Left Lower Abdomen 90 / 90 60 / 60 Other: Date of Last Bowel Movement 08/29/18 - Routine Respiratory Exam Present: CTA bilaterally - Routine Cardiovascular Exam Present: RRR - Routine Abdominal Exam Present: soft (incisional tenderness, ellyn serosang, cr good sxn) - Urinary Catheter Management Indwelling Urethral Catheter Cath placed during this visit: yes Reason for continuing: Hourly intake/output Insertion date: 08/29/18 Insertion time: 14:46 Results - Labs 08/29/18 23:40 08/29/18 23:40 Laboratory Results - last 24 hr 08/29/18 08/29/18 08/29/18 09:53 23:40 23:40 WBC 16.6 H RBC 4.26 L Hgb 13.0 Hct 37.1 L MCV 87.3 MCH 30.6 MCHC 35.1 RDW 13.5 Plt Count 355 D MPV 7.5 Neut % (Auto) 95.3 H Lymph % (Auto) 2.1 L [place] % (Auto) 2.4 Eos % (Auto) 0.0 Baso % (Auto) 0.2 Neut # (Auto) 15.8 H Lymph # (Auto) 0.3 L [place] # (Auto) 0.4 Eos # (Auto) 0.0 Baso # (Auto) 0.0 WBC Differential . Differential Comment Auto diff final Sodium 141 139 Potassium 4.1 3.8 Chloride 103 101 Carbon Dioxide 31.5 26.6 Anion Gap 7 11 BUN 4 L 6 L Creatinine 0.97 0.88 Estimated GFR 85 L Greater than 89 Random Glucose 86 178 H Calcium 9.3 8.5 D - Imaging Imaging: ITS Impressions Abdomen/Pelvis CT 08/25/18 15:55 CONCLUSION: 1. Recurrent abscess in the left lower quadrant, presumably a diverticular abscess. Mild acute sigmoid colitis superimposed on chronic diverticular changes. No obstruction. 2. Otherwise chronic stable findings. Small hiatal hernia again seen. Abscess Drainage CT 08/26/18 00:00 CONCLUSION: 1. Uncomplicated CT guided intra-abdominal abscess drainage. Sample of the fluid was sent to microbiology for evaluation. Assessment and Plan - Assessment (1) Colonic diverticular abscess Code(s): K57.20 - Diverticulitis of large intestine with perforation and abscess without bleeding Status: Acute Plan: perforated diverticular abscess POD 1 robotic asst lap sigmoidectomy with colostomy stable PLAN Clear liq diet oob to chair ellyn sxn keep ochoa will d/c tomorrow dvt ppx start lovenox tomorrow IS cr sxn
[2018-08-30 11:30] LABS: Anion Gap 7 meq/L (5-15); Blood Urea Nitrogen 6 mg/dL (7-18); Calcium 8.9 mg/dL (8.5-10.1); Carbon Dioxide 26.7 meq/L (21.0-32.0); Chloride 104 meq/L (98-107); Glomerular Filtration Rate Greater Than 89 mL/min (>89); Glucose,Random 116 mg/dL (74-106); Potassium 4.1 meq/L (3.5-5.1); Sodium 138 meq/L (136-145)
--- NOTE | 2018-08-30 14:58 | P.PNWCN ---
Wound Care Nurse Consult Description: Consult for New Ostomy Teaching per DREW Kline Communicated with: Patient IVÁN Tadeo ARNP Recommendation: Empty pouch of effluent when 1/3-1/2 full Ensure the pouch is completely closed at the bottom to avoid spillage. Change colostomy wafer Q5D and PRN for leaks. Additional information: Patient seen on for ostomy assessment and teaching. Bowel Diversion Stoma - Bowel Stoma Left abdomen Stoma Edema: Yes (1 1/4" x 1 1/2") Stoma Appearance: Oval (red, moist, not funtioning at this time), Protruding ( minimally) Loop Supporting Sincere: No Collection Device: Two-piece, Moldable Wafer (it appears moldable wafer has been cut to fit size of stoma) Wafer Size: 2 1/4 Moldable - Additional Information Additional Information: Left sided colostomy is red, oval, moist, protruding, noted with mucus only. Stoma appliance is 2 1/4" moldable, however has been cut. Appliance is intact and noted without leaks. Pouch was noted to be open at the bottom. Pouch was closed with instructions given to patient on how to do so. Patient instructed on skin care, stoma appearance, moisture, and hydration needs. Verbal consent obtained for starter kit to be sent to patient home. Supplies ordered for patient to go home with at discharge.
--- NOTE | 2018-08-30 17:28 | MP ---
cc: Darren Upton MD DATE OF OPERATION: 08/29/2018 DATE OF PROCEDURE: 08/29/2015. PREOPERATIVE DIAGNOSIS: Sepsis, perforation and diverticulitis with diverticular abscess. POSTOPERATIVE DIAGNOSES: Sepsis, perforation and diverticulitis with diverticular abscess, multiple abdominal adhesions intense inflammatory reaction. PROCEDURE PERFORMED: 1. Robotic-assisted laparoscopic sigmoidectomy. 2. End colostomy. 3. Extensive lysis of adhesions, greater than 3 hours. ANESTHESIA: GETA. IV FLUIDS: See anesthesia sheet. ESTIMATED BLOOD LOSS: 500 mL DRAINS: A 19-Tongan round Donell drain placed in the pelvis. ASSISTANTS: Dr. Ron Estrada. Dr. Ron Estrada helped with [place] portions of the procedure. He was necessary for camera control and retraction due to complexity of the robotic case. SPECIMENS: Sigmoid colon. FINDINGS: Intense inflammatory reaction to the left peritoneal gutter and sidewall and intense reaction to the bladder; methylene blue instilled in the [place] and distended the bladder without evidence of leaking. Good hemostasis. INDICATIONS: The patient is a 43-year-old male with history of a diverticular abscess. The patient initially presented several months ago with a perforation of diverticular abscess. IR drained; improved and did somewhat well, but developed a second recurrence of abscess that repeat IR drained. Again, the patient did relatively well; however and was planning for undergoing a sigmoid resection; however, developed again an acute onset of sepsis with abscess, necessitating operative intervention in the same hospital stay. Discussed with the patient in detail. DETAILS OF PROCEDURE: The patient was taken to the operating suite, placed in supine position with lithotomy. He was prepped and draped in the usual sterile fashion after induction of general endotracheal anesthesia. Brief timeout done stating the correct patient, procedure, surgical site, and all were in agreement with this. The 5 mm Visiport was placed just right of midline superior to the umbilicus. The abdomen was insufflated to 15 mm. perineum. On cursory inspection, no evidence of injury. There is noted to be several small bowel adhesions along with a sigmoid colonic adhesion to the bladder and pelvic sidewall. So other ports were placed, including a left upper quadrant 8 mm port, followed by a right upper quadrant 8 mm port, right lower quadrant 12 mm robotic stapler port and a 5 mm assist port. The small bowel was laparoscopically manipulated in order to bring the pelvis and sigmoid colon into view once the patient was placed in Trendelenburg to asst in keeping small bowel out of the pelvis. There was noted to be multiple small bowel adhesions that were lysed with EndoShears. Next, the robot was docked and cautery fenestrated bipolar and robotic jasmyn were used. Attention was directed medially. The colon was grasped and retracted cephalad. Again noted intense inflammatory reaction to the side of the left pelvic wall. The mesentery was dissected through and the ureter was identified and protected. The left colic vessels were also identified and using EndoSeal hemostatic device this was ligated. Once this was done and scored along the peritoneum, distal and proximal was done, the attention was directed laterally to mobilize the lateral wall areas of the colon. Again, meticulous dissection was done. There were multiple adhesion and intense inflammatory reaction. Upon doing distal sigmoid, there is noted that the pigtail previously placed catheter by IR was brought into field view. This was the place where a chronic abscess cavity was noted. Further dissection also using robotic suction device. Hemostasis was obtained, noted to be some easy bleeding tissue as well with hemostasis. Once identified, the white line of [place] was mobilized with the lateral peritoneal attachments in order to fully mobilize the colon. Following this, again noted there was a very bulky mesentery; somewhat fatty in nature, which further made the procedure somewhat difficult. A point proximal on the sigmoid colon was noted to be soft and clean of any pathology. A robotic GI stapler was used, green load to transect this portion. Once this was done, further mobilization of the colon was done heading caudad down into the pelvis. Again noted to be a chronic fibrosed tissue even involving the mesentery of the colon. The colon was intimately adherent also to the dome of the bladder and this was meticulously dissected and taken off. Once the colon was fully mobilized adequately using a robotic assistance the decision was then made for continuation of surgery laparoscopically. The robot was undocked and the laparoscopic equipment set. The colon was then transected using a 60 Endo GI stapler. This was done at the rectosigmoid junction. A lower midline incision was done. Ranjana GelPort was placed for a wound protector. This was used as a hand-port assist port and facilitated removal of the sigmoid colon. Sigmoid specimen was removed and hand was used to assist for further blunt dissection again to completion of the mobilization of the colon. The distal rectal stump was tagged with 3-0 Prolene sutures for marking the stitches. The abdomen was irrigated thoroughly and hemostasis was obtained. The proximal portion of the colon, decision was made for bringing this up as an end colostomy. A previously marked spot in the left lower quadrant was identified and using a 15-blade was incised in a [place], electro-Bovie cautery done to core out a piece of fatty subcutaneous tissue. Cruciate incision was made in the anterior peritoneum and also in the posterior peritoneum. A [place] was used to grasp the colon and bring it cephalad. The colon was noted to be not under any tension and not twisted and brought freely through the colostomy wound. The fascia was then closed after a 19-Tongan Donell drain was placed through the right lower quadrant incision and placed in the pelvis; secured with a 2-0 nylon. The previous IR drain was removed and then commencement of closure of the abdomen was done to the lower midline using a #1 looped PDS. Next, irrigation of the subcutaneous tissue with electro-Bovie cautery for hemostasis. Randy were used to close skin; ARLENE dressing placed. The colostomy was matured in a Kylah fashion doing 12 o'clock, 3 o'clock, 6 o'clock, 9 o'clock with 3-0 Vicryl in order to [place] and [place]yl[place] the colostomy. Radially, the 3-0 Vicryl was done in order to finish the colostomy. Interdigitation of colostomy noted to be patent without evidence of again stress or stricture. The pneumoperitoneum was removed. Ports were removed. [place] were used at all port sites. All lap and instrument counts were correct at the end of procedure. The patient tolerated the procedure well. There were no complications. The patient was extubated and taken stable to PACU. MD INEZ Padron/abdifatah/krishna , 03:57 PM , 04:16 PM FABRICIO
[2018-08-31] MEDS: Morphine Inj 30 MG/30 ML PCA.VIAL PCA PRN ×2 (00:12→05:16)
[2018-08-31] MEDS: Piperacil/Tazo 3.375 GM Premix 50 ML IV.SIG SCH ×4 (04:50→23:17)
[2018-08-31] MEDS: Sod Chloride 0.9% Inj 1,000 ML IV.CONT SCH ×3 (04:51→23:18)
[2018-08-31 05:02] LABS: Baso # (Auto) 0.1 th/mm3 (0.0-0.2); Baso % (Auto) 0.4 % (0.0-2.0); Eos # (Auto) 0.1 th/mm3 (0.0-0.4); Eos % (Auto) 0.5 % (0.0-4.0); Hematocrit 33.7 % (39.0-51.0); Hemoglobin 11.8 gm/dL (13.0-17.0); Lymph # (Auto) 1.7 th/mm3 (1.0-4.8); Lymph % (Auto) 11.7 % (9.0-44.0); Mean Corpuscular Hemoglobin 31.3 pg (27.0-34.0); Mean Corpuscular Volume 89.4 fL (80.0-100.0); Mono # (Auto) 1.4 th/mm3 (0.0-0.9); Mono % (Auto) 9.7 % (0.0-8.0); Neut # (Auto) 11.3 th/mm3 (1.8-7.7); Neut % (Auto) 77.7 % (16.0-70.0); Platelet Count 317 th/mm3 (150-450); Red Blood Count 3.77 mil/mm3 (4.50-5.90); White Blood Count 14.6 th/mm3 (4.0-11.0)
[2018-08-31 05:18] LABS: Anion Gap 11 meq/L (5-15); Blood Urea Nitrogen 7 mg/dL (7-18); Calcium 8.5 mg/dL (8.5-10.1); Carbon Dioxide 27.6 meq/L (21.0-32.0); Chloride 103 meq/L (98-107); Glomerular Filtration Rate Greater Than 89 mL/min (>89); Glucose,Random 100 mg/dL (74-106); Potassium 3.8 meq/L (3.5-5.1); Sodium 142 meq/L (136-145)
[2018-08-31] MEDS: Pantoprazole Inj 40 MG Vial IV.PUSH SCH (08:34)
[2018-08-31] MEDS: Senna/Docusate Sodium 8.6/50 MG Tablet PO SCH ×2 (08:34→20:20)
--- NOTE | 2018-08-31 14:24 | P.PNWCN ---
Wound Care Nurse Consult Description: Consult for New Ostomy Teaching per DREW Kline Communicated with: DREW Estrella Patient Patient at bedside IVÁN Chávez Recommendation: Empty pouch of effluent when 1/3-1/2 full Ensure the pouch is completely closed at the bottom to avoid spillage. Change colostomy wafer Q5D and PRN for leaks. Additional information: Patient seen on for ostomy assessment and teaching with reinforcement Wound Drain - Drain Left Abdomen Drainage Description: Sanguinous (90ml of sanguinous/serous drainage noted with small clots. ) - Additional Information Changed dressing and emptied drain per Dr Upton request. Sutures noted in tact holding ellyn drain in place with serous drainage noted coming from around drain at site. Skin was cleansed and skin prepped prior to placing new sterile gauze and bordered gauze dressing. Skin tear noted anteriorly and distally to drain was encrusted using stoma powder and cavilon and then left open to air. Bowel Diversion Stoma - Bowel Stoma Left Abdomen Stoma Edema: Yes Stoma Appearance: Oval, Protruding Loop Supporting Sincere: No Collection Device: Two-piece, Moldable Wafer Wafer Size: 2 1/4 Moldable Vijaya-Stomal Surrounding Tissue Sensation Description: No Symptoms - Additional Information Additional Information: Left sided colostomy is red, oval, moist, protruding, noted with mucus only. Stoma appliance is 2 1/4" moldable. Appliance is intact and noted without leaks. Patient instructed on skin care, stoma appearance, moisture, and hydration needs. Starter kit sent to patient home. Supplies ordered for patient to go home with at discharge. and patient were instructed on how to apply a new wafer and pouch to practice stoma with return demonstration. Patient was encouraged to ambulate with assistance. Meeting with patient and tomorrow @ 10:30 for pouch removal, peristomal skin care, measuring of stoma, new wafer and pouch application.
--- NOTE | 2018-08-31 15:30 | P.DCO ---
- Home Health Nursing Order: Wound care and dressing changes Instructions: Continued colostomy care and teaching - Case Management Consult Yes - Certification I have seen patient Rik Arevalo III on 08/31/18. My clinical findings support the need for the requested home health care services because: Limited mobility due to disease progression I certify that my clinical findings support that this patient is homebound because: Post-op weakness
[2018-08-31] MEDS: Morphine Sulfate Inj 2 MG/ML Vial IV.PUSH PRN (20:20)
[2018-09-01] MEDS: Morphine Sulfate Inj 2 MG/ML Vial IV.PUSH PRN ×5 (00:36→20:53)
[2018-09-01] MEDS: Piperacil/Tazo 3.375 GM Premix 50 ML IV.SIG SCH ×4 (04:00→22:58)
[2018-09-01] MEDS: Sod Chloride 0.9% Inj 1,000 ML IV.CONT SCH ×3 (06:27→20:57)
--- NOTE | 2018-09-01 08:12 | P.PNGS ---
Subjective Patient reports: still having pain, no bowel movement Physical Exam Vital signs: Vital Signs 08/31/18 12:00 08/31/18 16:00 08/31/18 20:00 Temperature 97.8 F 97.2 F L 98.8 F Pulse Rate 84 84 89 Respiratory Rate 18 18 19 Blood Pressure 143/92 H 136/91 H 148/86 H Pulse Oximetry 94 L 95 96 09/01/18 00:00 Temperature 97.6 F Pulse Rate 82 Respiratory Rate 19 Blood Pressure 136/86 Pulse Oximetry 95 Intake & Output 08/31/18 09/01/18 09/01/18 18:59 06:59 18:59 Intake Total 1050 / 1050 2752 / 2752 Output Total 1170 / 1170 1525 / 1525 Balance -120 / -120 1227 / 1227 Weight 124.5 kg Intake: IV 1050 / 1050 2001 / 2001 NS Inj 1,000 ML @ 125 mls/hr IV 1000 / 1000 1852 / 1852 .CONT .Q8H ANA Rx#:[id number] Zosyn 3.375 GM Premix 50 ML @ 50 / 50 150 / 150 100 mls/hr IV.SIG Q6H ANA Rx#: [id number] Oral 750 / 750 Output: Urine 1250 / 1250 Urine Amount (Catheter) 850 / 850 Indwelling Urethral Catheter 850 / 850 Wound Drainage 320 / 320 275 / 275 # 1 Left Lower Abdomen 90 / 90 Left Abdomen 230 / 230 275 / 275 Other: # Voids 2 - Routine Respiratory Exam Present: CTA bilaterally - Routine Cardiovascular Exam Present: RRR - Routine Abdominal Exam Present: soft (incisional tenderness ostomy pink, ellyn serosang) - Urinary Catheter Management Indwelling Urethral Catheter Cath placed during this visit: yes Reason for continuing: Hourly intake/output Insertion date: 08/29/18 Insertion time: 14:46 Results - Labs 08/31/18 03:36 08/31/18 03:36 - Imaging Imaging: ITS Impressions Abdomen/Pelvis CT 08/25/18 15:55 CONCLUSION: 1. Recurrent abscess in the left lower quadrant, presumably a diverticular abscess. Mild acute sigmoid colitis superimposed on chronic diverticular changes. No obstruction. 2. Otherwise chronic stable findings. Small hiatal hernia again seen. Abscess Drainage CT 08/26/18 00:00 CONCLUSION: 1. Uncomplicated CT guided intra-abdominal abscess drainage. Sample of the fluid was sent to microbiology for evaluation. Assessment and Plan - Assessment (1) Colonic diverticular abscess Code(s): K57.20 - Diverticulitis of large intestine with perforation and abscess without bleeding Status: Acute Plan: -s.p robotic asst laparoscopic sigmoidectomy colostomy PLAN Full liq diet increase pain control ellyn sxn dvt ppx scds, start lovenox pending labs ambulate labs pending
[2018-09-01] MEDS: Ketorolac Inj 30 MG/ML (IVP) Vial IV.PUSH SCH ×3 (09:23→20:55)
[2018-09-01] MEDS: Senna/Docusate Sodium 8.6/50 MG Tablet PO SCH ×2 (09:26→20:56)
[2018-09-01] MEDS: Pantoprazole Inj 40 MG Vial IV.PUSH SCH ×2 (09:26→20:57)
[2018-09-01 10:12] LABS: Baso # (Auto) 0.1 th/mm3 (0.0-0.2); Baso % (Auto) 0.7 % (0.0-2.0); Eos # (Auto) 0.3 th/mm3 (0.0-0.4); Eos % (Auto) 3.1 % (0.0-4.0); Hematocrit 30.8 % (39.0-51.0); Hemoglobin 10.9 gm/dL (13.0-17.0); Lymph # (Auto) 1.7 th/mm3 (1.0-4.8); Lymph % (Auto) 15.9 % (9.0-44.0); Mean Corpuscular HGB Conc 35.3 % (32.0-36.0); Mean Corpuscular Hemoglobin 31.3 pg (27.0-34.0); Mean Corpuscular Volume 88.5 fL (80.0-100.0); Mean Platelet Volume 7.5 fL (7.0-11.0); Mono # (Auto) 0.9 th/mm3 (0.0-0.9); Mono % (Auto) 8.4 % (0.0-8.0); Neut # (Auto) 7.5 th/mm3 (1.8-7.7); Neut % (Auto) 71.9 % (16.0-70.0); Platelet Count 271 th/mm3 (150-450); Red Blood Count 3.48 mil/mm3 (4.50-5.90); Red Cell Distribution Width 13.8 % (11.6-17.2); White Blood Count 10.5 th/mm3 (4.0-11.0)
[2018-09-01 10:54] LABS: Anion Gap 10 meq/L (5-15); Blood Urea Nitrogen 7 mg/dL (7-18); Calcium 8.5 mg/dL (8.5-10.1); Carbon Dioxide 29.6 meq/L (21.0-32.0); Chloride 101 meq/L (98-107); Glomerular Filtration Rate Greater Than 89 mL/min (>89); Glucose,Random 103 mg/dL (74-106); Potassium 3.3 meq/L (3.5-5.1); Sodium 141 meq/L (136-145)
--- NOTE | 2018-09-01 12:12 | P.PNWCN ---
Wound Care Nurse Consult Description: Consult for New Ostomy Teaching per DREW Kline Communicated with: Patient Patient at bedside Recommendation: Empty pouch of effluent when 1/3-1/2 full Ensure the pouch is completely closed at the bottom. Change colostomy wafer Q5D and PRN for leaks. Additional information: Patient seen on for ostomy assessment, teaching, and appliance change using 2 1/4" moldable wafer, low pressure adaptor, and open ended transparent pouch. Supplies ordered for patient to go home with at discharge and brought to patient room. Wound Drain - Additional Information Changed dressing and emptied drain per Dr Upton request. Sutures noted in tact holding ellyn drain in place with serous drainage noted coming from around drain at site. Skin was cleansed and skin prepped prior to placing new sterile gauze and bordered gauze dressing. Skin tear noted anteriorly and distally to drain was encrusted using stoma powder and cavilon and then left open to air. Bowel Diversion Stoma - Bowel Stoma Left Upper Abdomen Stoma Edema: Yes Stoma Appearance: Oval, Protruding (red, moist, mucus present, no stool) Loop Supporting Sincere: No Collection Device: Two-piece, Moldable Wafer Wafer Size: 2 1/4 Moldable Stoma Care: Pouch and Wafer Changed, Skin Care Vijaya-Stomal Skin Appearance: Intact Vijaya-Stomal Surrounding Tissue Sensation Description: No Symptoms - Additional Information Additional Information: Left sided colostomy is red, oval, moist, protruding, noted with mucus only. Stoma appliance is 2 1/4" moldable. Appliance was changed at bedside with patient recording on personal phone for reference. Patient instructed on skin care, stoma appearance, moisture, and hydration needs. Starter kit sent to patient home. Supplies ordered for patient to go home with at discharge. and patient were instructed on how to apply a new wafer and pouch. Patient was encouraged to ambulate with assistance. Script left on chart for supplies.
[2018-09-02] MEDS: Morphine Sulfate Inj 2 MG/ML Vial IV.PUSH PRN ×3 (00:14→09:01)
[2018-09-02] MEDS: Ketorolac Inj 30 MG/ML (IVP) Vial IV.PUSH SCH ×4 (02:09→20:34)
[2018-09-02] MEDS: Sod Chloride 0.9% Inj 1,000 ML IV.CONT SCH (04:08)
[2018-09-02] MEDS: Piperacil/Tazo 3.375 GM Premix 50 ML IV.SIG SCH (04:10)
[2018-09-02] MEDS: Senna/Docusate Sodium 8.6/50 MG Tablet PO SCH ×3 (07:42→20:34)
[2018-09-02] MEDS: Pantoprazole Inj 40 MG Vial IV.PUSH SCH ×3 (07:43→20:35)
--- NOTE | 2018-09-02 10:18 | P.PNGS ---
Subjective Patient reports: feels better, pain is less, tolerating liquids well, flatus, bowel movement, afebrile Physical Exam Vital signs: Vital Signs 09/01/18 12:00 09/01/18 16:00 09/01/18 20:00 Temperature 97.9 F 97.8 F 97.8 F Pulse Rate 74 73 81 Respiratory Rate 18 18 18 Blood Pressure 133/74 137/92 H 136/73 Pulse Oximetry 96 98 95 09/02/18 00:00 09/02/18 08:00 Temperature 97.5 F L 97.5 F L Pulse Rate 75 72 Respiratory Rate 19 16 Blood Pressure 130/75 109/69 Pulse Oximetry 98 99 Intake & Output 09/01/18 09/02/18 09/02/18 18:59 06:59 18:59 Intake Total 860 / 860 2100 / 2100 Output Total 210 / 210 175 / 175 Balance 650 / 650 1925 / 1925 Weight 123 kg Intake: IV 100 / 100 2100 / 2100 NS Inj 1,000 ML @ 125 mls/hr IV 1999 / 1999 .CONT .Q8H [facility] Rx#:[id number] Zosyn 3.375 GM Premix 50 ML @ 100 / 100 100 / 100 100 mls/hr IV.SIG Q6H [facility] Rx#: [id number] Oral 760 / 760 Output: Stool Amount (Stoma) 20 / 20 Left Upper Abdomen 20 / 20 Wound Drainage 190 / 190 175 / 175 Left Abdomen 190 / 190 175 / 175 Other: # Voids 4 - Routine Abdominal Exam Present: soft, normoactive bowel sounds, tenderness, surgical scars, wound Comments: cr clean, ostomy viable with some stool and gas - Urinary Catheter Management Indwelling Urethral Catheter Cath placed during this visit: yes Reason for continuing: Hourly intake/output Insertion date: 08/29/18 Insertion time: 14:46 Results - Labs 09/01/18 09:55 09/01/18 09:55 Laboratory Results - last 24 hr 09/01/18 09:55 Sodium 141 Potassium 3.3 L Chloride 101 Carbon Dioxide 29.6 Anion Gap 10 BUN 7 Creatinine 0.70 Estimated GFR Greater than 89 Random Glucose 103 Calcium 8.5 - Imaging Imaging: ITS Impressions Abdomen/Pelvis CT 08/25/18 15:55 CONCLUSION: 1. Recurrent abscess in the left lower quadrant, presumably a diverticular abscess. Mild acute sigmoid colitis superimposed on chronic diverticular changes. No obstruction. 2. Otherwise chronic stable findings. Small hiatal hernia again seen. Abscess Drainage CT 08/26/18 00:00 CONCLUSION: 1. Uncomplicated CT guided intra-abdominal abscess drainage. Sample of the fluid was sent to microbiology for evaluation. Assessment and Plan - Assessment (1) Colonic diverticular abscess Code(s): K57.20 - Diverticulitis of large intestine with perforation and abscess without bleeding Status: Acute Plan: -s.p robotic asst laparoscopic sigmoidectomy colostomy PLAN Full liq diet increase pain control ellyn sxn dvt ppx scds, start lovenox pending labs ambulate labs pending - Plan HL IV Advance diet change to po abx
[2018-09-02] MEDS: levoFLOXacin 500 MG Tablet PO SCH (10:45)
[2018-09-02] MEDS: metroNIDAZOLE 500 MG Tablet PO SCH ×3 (14:11→21:50)
[2018-09-02] MEDS: Enoxaparin Inj 40 MG/0.4 ML Syringe SQ SCH (14:11)
[2018-09-03] MEDS: Ketorolac Inj 30 MG/ML (IVP) Vial IV.PUSH SCH ×4 (02:39→22:23)
[2018-09-03] MEDS: metroNIDAZOLE 500 MG Tablet PO SCH ×3 (05:36→22:22)
[2018-09-03] MEDS: Pantoprazole Inj 40 MG Vial IV.PUSH SCH ×2 (08:49→22:23)
[2018-09-03] MEDS: Senna/Docusate Sodium 8.6/50 MG Tablet PO SCH ×2 (08:49→22:22)
[2018-09-03] MEDS: levoFLOXacin 500 MG Tablet PO SCH (08:50)
[2018-09-03] MEDS: Enoxaparin Inj 40 MG/0.4 ML Syringe SQ SCH (13:10)
--- NOTE | 2018-09-03 17:17 | P.PNGS ---
Subjective Patient reports: feels better, bowel movement Physical Exam Vital signs: Vital Signs 09/02/18 20:00 09/02/18 21:50 09/03/18 00:00 Temperature 98.2 F 98.2 F Pulse Rate 82 64 Respiratory Rate 18 20 17 Blood Pressure 132/79 136/93 H Pulse Oximetry 99 98 09/03/18 07:03 09/03/18 08:00 09/03/18 12:00 Temperature 97.7 F 98 F Pulse Rate 74 77 Respiratory Rate 20 17 17 Blood Pressure 139/90 145/91 H Pulse Oximetry 98 98 09/03/18 16:00 Temperature 98.3 F Pulse Rate 82 Respiratory Rate 17 Blood Pressure 136/80 Pulse Oximetry 100 Intake & Output 09/02/18 09/03/18 09/03/18 18:59 06:59 18:59 Intake Total 2766 / 2766 720 / 720 Output Total 1365 / 1365 Balance 1401 / 1401 720 / 720 Weight 122.7 kg Intake: IV 250 / 250 NS Inj 1,000 ML @ 125 mls/hr IV 250 / 250 .CONT .Q8H [facility] Rx#:[id number] Oral 2036 / 2036 720 / 720 Oral Supplement 480 / 480 Output: Urine 1275 / 1275 Stool Amount (Stoma) 90 / 90 Left Upper Abdomen 90 / 90 Other: # Voids 3 - Constitutional no acute distress - Routine Abdominal Exam Present: soft, normoactive bowel sounds. Absent: tenderness, distended, rebound , guarding Comments: ostomy functioning, ARLENE intact - Urinary Catheter Management Indwelling Urethral Catheter Cath placed during this visit: yes Reason for continuing: Hourly intake/output Insertion date: 08/29/18 Insertion time: 14:46 Results - Labs 09/01/18 09:55 09/01/18 09:55 - Imaging Imaging: ITS Impressions Abdomen/Pelvis CT 08/25/18 15:55 CONCLUSION: 1. Recurrent abscess in the left lower quadrant, presumably a diverticular abscess. Mild acute sigmoid colitis superimposed on chronic diverticular changes. No obstruction. 2. Otherwise chronic stable findings. Small hiatal hernia again seen. Abscess Drainage CT 08/26/18 00:00 CONCLUSION: 1. Uncomplicated CT guided intra-abdominal abscess drainage. Sample of the fluid was sent to microbiology for evaluation. Assessment and Plan - Assessment (1) Colonic diverticular abscess Code(s): K57.20 - Diverticulitis of large intestine with perforation and abscess without bleeding Status: Acute Plan: 43yo s/p Robotic Gutierrez's colectomy, stable. +ostomy function pain pills not quite covering his pain plan for DC in AM if pain better on oral meds change ARLENE and DC drain prior to DC home wants ostomy nurse to perform teaching tomorrow before DC
[2018-09-04] MEDS: Ketorolac Inj 30 MG/ML (IVP) Vial IV.PUSH SCH ×2 (01:58→08:54)
[2018-09-04] MEDS: metroNIDAZOLE 500 MG Tablet PO SCH (06:17)
[2018-09-04 08:49] VITALS: RESP 18
[2018-09-04] MEDS: levoFLOXacin 500 MG Tablet PO SCH (08:54)
[2018-09-04] MEDS: Pantoprazole Inj 40 MG Vial IV.PUSH SCH (08:54)
[2018-09-04] MEDS: Senna/Docusate Sodium 8.6/50 MG Tablet PO SCH (08:55)
--- NOTE | 2018-09-04 09:35 | P.DS ---
Date of admission: 08/25/18 21:04 Primary care physician: UNKNOWN Attending physician on discharge: Darren Upton Brief History from admission: The patient is a 43-year-old male with history of recent diverticular abscess. Presents with acute onset abdominal pain. He states the pain started 2 days ago, continues to get worse. He has associated fevers. Pain was 5/10, currently a 3/10, worse with movement, better with lying still, sharp, located in the left lower quadrant. The patient came to emergency department for evaluation, including leukocytosis, WBC of 13.[address] scan showing a diverticular abscess. The patient has a recent history of perforated diverticulitis in which he was admitted on 07/05/2018 underwent IR drain, improved, was discharged on 07/08/2018 with IR drain. He then had a second occurance with short hospital stay and was planning to undergo elective surgery. He was doing relatively well until 2 days ago when he had recurrence of his symptoms. The patient, of note, had a colonoscopy in February showing essentially normal colon. DS: Diagnosis - Discharge Diagnosis (1) Colonic diverticular abscess Status: Acute DS: Medications - Discharge Medications Prescriptions: levofloxacin 500 mg PO DAILY #5 tab metronidazole 500 mg PO Q8HR 5 Days tab oxycodone-acetaminophen 1 tab PO Q4H PRN #18 tab PRN Reason: acute post op pain exception DS: Summary Hospital Course: This is a 43 year old male status post robotic asst laparoscopic sigmoidectomy colostomy. The patient's pain was controlled using oral pain medications. The patient was thoroughly educated on colostomy care. The patient was able to tolerate a diet. He will DC with the TERESITA drain. He will follow up in the office on Tuesday. - Time Spent with Patient Total time spent providing and/or coordinating discharge services: Less than 30 minutes - Quality: VTE Deep Vein Thrombosis/Pulmonary Embolism Present on Admission: No Exam Vital signs: Vital Signs 09/03/18 12:00 09/03/18 16:00 09/03/18 20:00 Temperature 98 F 98.3 F 98.0 F Pulse Rate 77 82 83 Respiratory Rate 17 17 18 Blood Pressure 145/91 H 136/80 142/97 H Pulse Oximetry 98 100 99 09/04/18 00:00 09/04/18 06:15 09/04/18 06:16 Temperature 98.6 F Pulse Rate 82 Respiratory Rate 20 20 20 Blood Pressure 146/85 H Pulse Oximetry 96 09/04/18 08:00 Temperature 97.6 F Pulse Rate 69 Respiratory Rate 18 Blood Pressure 139/90 Pulse Oximetry 98 Intake & Output 09/03/18 09/04/18 09/04/18 18:59 06:59 18:59 Intake Total 1676 / 1676 1200 / 1200 Output Total 50 / 50 1200 / 1200 35 / 35 Balance 1626 / 1626 0 / 0 -35 / -35 Weight 122.3 kg Intake: Oral 1676 / 1676 1200 / 1200 Output: Urine 1200 / 1200 Stool Amount (Stoma) 35 / 35 Left Upper Abdomen 35 / 35 Wound Drainage 50 / 50 Left Abdomen 50 / 50 Other: # Voids 6 Date of Last Bowel Movement 09/04/18 Narrative: ALert and awake Abd: soft; ARLENE in place; TERESITA with SS drainage; Colostomy with stool; stoma pink Results Procedures completed during hospitalization: -status post robotic asst laparoscopic sigmoidectomy colostomy Completed studies during hospitalization: Pending at discharge 08/29/18 07:58 Surgical [PTH] Routine - Impressions ITS Impressions Abdomen/Pelvis CT 08/25/18 15:55 CONCLUSION: 1. Recurrent abscess in the left lower quadrant, presumably a diverticular abscess. Mild acute sigmoid colitis superimposed on chronic diverticular changes. No obstruction. 2. Otherwise chronic stable findings. Small hiatal hernia again seen. Abscess Drainage CT 08/26/18 00:00 CONCLUSION: 1. Uncomplicated CT guided intra-abdominal abscess drainage. Sample of the fluid was sent to microbiology for evaluation. Discharge Plan - Discharge Disposition Patient Disposition: /Home Health Service - Discharge Condition Condition: Stable - Discharge Order Discharge Orders: Discharge Order (Routine); Ordered 09/04/18 Ordered By: Mariah Kline - Discharge Details Anticipated Discharge Date: 09/04/18 Discharge Comment: rx on chart; DC with TERSEITA - Physicians Team Primary Care Provider: UNKNOWN, Attending Provider: Darren Upton Other Providers: Surgeons,[facility]
[2018-09-04 12:51] VITALS: BP 144/93; PULSE 78; TEMP 98.2; O2SAT 99
--- NOTE | 2018-09-04 13:21 | P.PNWCN ---
Wound Care Nurse Consult Description: Consult for New Ostomy Teaching per DREW Kline Communicated with: Patient Patient at bedside DREW Kline notified of mucocutaneous separation and slough Recommendation: Empty pouch of effluent when 1/3-1/2 full Ensure the pouch is completely closed at the bottom. Change colostomy wafer Q5D and PRN for leaks. Additional information: Patient seen on for ostomy assessment, teaching, and appliance change prior to discharge. All questions answered at this time. Full note to follow. Bowel Diversion Stoma - Bowel Stoma Left Abdomen Stoma Edema: Yes Stoma Appearance: Oval, Protruding Collection Device: Two-piece, Moldable Wafer Drainage Description: Soft, Brown Wafer Size: 2 1/4 Moldable Stoma Care: Pouch and Wafer Changed, Skin Care - Additional Information Additional Information: Left sided colostomy is red, oval, moist, protruding, noted with mucus and brown soft effluent. Stoma appliance is 2 1/4" moldable. Appliance was changed at bedside with patient visualizing. Patient instructed on skin care, stoma appearance, moisture, and hydration needs. Starter kit sent to patient home. Supplies ordered for patient to go home with at discharge. and patient were instructed on how to apply a new wafer and pouch. Patient was encouraged to ambulate. Script left on chart for supplies.
== END 2018-09-04 14:16 | disposition home health service (06) ==
LOC: NEPC 14:39 → NEDA 21:04 → N07 22:09
PROVIDERS: ADMIT Surgery; ATTEND Surgery

== ENCOUNTER 2018-11-07 11:26 | Inpatient (IN) ==
[2018-11-07 12:56] LABS: Baso % (Auto) 0.5 % (0.0-2.0); Eos # (Auto) 0.1 th/mm3 (0.0-0.4); Eos % (Auto) 0.8 % (0.0-4.0); Hematocrit 45.5 % (39.0-51.0); Hemoglobin 16.4 gm/dL (13.0-17.0); Lymph # (Auto) 1.6 th/mm3 (1.0-4.8); Lymph % (Auto) 16.7 % (9.0-44.0); Mean Corpuscular Hemoglobin 31.9 pg (27.0-34.0); Mean Corpuscular Volume 88.2 fL (80.0-100.0); Mono # (Auto) 0.8 th/mm3 (0.0-0.9); Mono % (Auto) 8.5 % (0.0-8.0); Neut % (Auto) 73.5 % (16.0-70.0); Platelet Count 291 th/mm3 (150-450); Red Blood Count 5.16 mil/mm3 (4.50-5.90); Red Cell Distribution Width 13.6 % (11.6-17.2); White Blood Count 9.5 th/mm3 (4.0-11.0)
[2018-11-07 12:58] LABS: Mean Corpuscular HGB Conc 36.1 % (32.0-36.0)
[2018-11-07] MEDS ORDERED: Sodium Chlor 0.9% Inj 500 ML IV.CONT ONE (13:00)
[2018-11-07] MEDS ORDERED: Metoprolol Tartrate 25 MG Tablet PO ONE (13:00)
[2018-11-07] MEDS ORDERED: Chlorhexidine Gluconate 2% 1 Pack (2 Cloths) TOPICAL ONE (13:00)
[2018-11-07] MEDS ORDERED: ceFAZolin 2 GM Premix Inj 2 GM/50 ML PIGGYBACK IV.SIG ONE (13:13)
[2018-11-07] MEDS ORDERED: Bupivacaine 0.25% Inj 50 ML MDV Vial ONE (13:47)
[2018-11-07] MEDS ORDERED: ceFAZolin 2 GM IV; once IV.SIG SCH (14:00)
[2018-11-07 14:01] LABS: Alkaline Phosphatase 98 U/L (45-117); Total Protein 8.1 g/dL (6.4-8.2)
[2018-11-07 14:05] LABS: Alanine Aminotransferase 34 U/L (12-78); Albumin 3.8 g/dL (3.4-5.0); Anion Gap 9 meq/L (5-15); Aspartate Aminotransferase 27 U/L (15-37); Blood Urea Nitrogen 9 mg/dL (7-18); Calcium 9.3 mg/dL (8.5-10.1); Chloride 102 meq/L (98-107); Glomerular Filtration Rate Greater Than 89 mL/min (>89); Glucose,Random 98 mg/dL (74-106); Sodium 137 meq/L (136-145)
[2018-11-07 14:08] LABS: Potassium 3.9 meq/L (3.5-5.1)
[2018-11-07] MEDS ORDERED: Ketorolac Inj 30 MG/ML (IVP) Vial IV.PUSH PRN (14:16)
[2018-11-07] MEDS ORDERED: Promethazine 25 MG Supp RECTAL PRN (14:16)
[2018-11-07] MEDS ORDERED: Bisacodyl 10 MG Supp RECTAL PRN (14:16)
[2018-11-07] MEDS ORDERED: Post-op Orders (for Pharmacy) OTHER ONE (14:16)
--- NOTE | 2018-11-07 14:16 | P.OP ---
- Preoperative Diagnosis (1) Diverticulitis of large intestine with complication (2) Colostomy in place - Postoperative Diagnosis (1) Colostomy in place (2) Diverticulitis of large intestine with complication Procedure: lap assisted colostomy reversal, lysis of adhesions Anesthesia: GETA Surgeon: Darren Upton MD Boot Trimmer: Rodney Desir Estimated blood loss (mL): 30 Pathology: other Operation and Findings: adhesions, no leak
[2018-11-07] MEDS ORDERED: Naloxone Inj 0.4 MG/ML Vial IV.PUSH PRN (14:19)
[2018-11-07] MEDS ORDERED: Bupivacaine Liposomal PF 1.3% Inj 20 ML Vial ONE (14:23)
[2018-11-07] MEDS ORDERED: Famotidine PF Inj 20 MG/2 ML Vial ONE (14:23)
[2018-11-07] MEDS ORDERED: Clindamycin Inj 900 MG/6 ML Vial ONE (14:38)
[2018-11-07] MEDS ORDERED: Bupivacaine/Epinephrine Inj 0.25% 50 ML Vial ONE (14:45)
[2018-11-07] MEDS ORDERED: Morphine Inj 4 MG/ML Vial IV.SIG ONE (15:00)
[2018-11-07] MEDS ORDERED: *Meperidine Inj 25 MG/ML Vial PERIprocedural Use ONLY ONE (18:10)
[2018-11-07] MEDS: Sod Chloride 0.9% Inj 1,000 ML IV.CONT SCH (18:22)
[2018-11-07] MEDS: Morphine Inj 30 MG/30 ML PCA.VIAL PCA PRN (18:23)
[2018-11-07] MEDS ORDERED: fentaNYL Citrate Inj 100 MCG/2 ML Ampul ONE (18:26)
--- NOTE | 2018-11-07 19:30 | MP ---
cc: Rodney Desir MD DATE OF OPERATION: 11/07/2018 PREOPERATIVE DIAGNOSIS: Colostomy status post perforated diverticulitis. POSTOPERATIVE DIAGNOSIS: Colostomy status post perforated diverticulitis. PROCEDURE PERFORMED: Rigid sigmoidoscopy. SURGEON: Rodney Desir MD. ANESTHESIA: General endotracheal. COMPLICATIONS: None. INDICATIONS FOR PROCEDURE: Mr. Arevalo is a pleasant 43-year-old patient of Dr. Darren Upton who is currently undergoing a laparoscopic-assisted colostomy takedown. Dr. Upton asked me to evaluate the distal rectal stump with a rigid sigmoidoscopy and also assisted me in the anastomosis. Risks and benefits of the procedure were discussed with the patient by Dr. Upton who was agreeable. DETAILS OF PROCEDURE: The patient was in the operating room with Dr. Upton. Please see his operative note for details. The patient was in lithotomy position. The anus and rectum were inspected and palpated. There was no evidence of any gross abnormalities, no obvious external hemorrhoids or masses. There was a small mucous ball in the rectal vault, which was removed digitally. Next, a rigid sigmoidoscope was advanced under direct vision. It went up to about 18 cm when it kind of strictured down and went to the right, which is the patient's left. I could see the light from the laparoscopic portion of the procedure. There were no gross abnormalities noted. The rectum and sigmoid colon were then gently dilated with a 25 EEA sizer. After that, a 29 EEA stapler was then introduced into the anus and rectum. It was advanced slowly to where Dr. Upton could identify it intra-abdominally. He selected a site on the anterior sigmoid colon just above the peritoneal reflection. The spike was then deployed under direct vision and the anvil attached. The EEA was then closed and fired. The EEA was then removed. The EEA was opened and there were 2 thick healthy complete donuts noted on each side. I then reintroduced the rigid sigmoidoscope. There was no bleeding noted within the rectum. The rectum was then insufflated and Dr. Upton could see the descending colon insufflate and there was no evidence of an air leak as he had filled the pelvis with saline. The window on the sigmoidoscope was then opened and the air was allowed to escape. Sigmoidoscope was then withdrawn. This terminated my portion of the procedure. Please see Dr. Upton's note for the complete details of the surgical procedure. MD Rakel Garcia , 06:45 PM , 06:52 PM
[2018-11-07] MEDS ORDERED: Clindamycin 900 mg/NS Premix 900 MG/50 ML PIGGYBACK IV.SIG SCH (20:00)
[2018-11-07] MEDS: Senna/Docusate Sodium 8.6/50 MG Tablet PO SCH (21:01)
[2018-11-07] MEDS ORDERED: ceFAZolin 1 GM Premix Inj 1 GM/50 ML PIGGYBACK IV.SIG SCH (22:00)
--- NOTE | 2018-11-07 22:25 | MP ---
cc: Darren Upton MD DATE OF OPERATION: 11/07/2018 PREOPERATIVE DIAGNOSES: History of a contained perforated diverticulitis, history of colostomy for diverticular disease and sigmoidectomy. POSTOPERATIVE DIAGNOSES: History of a contained perforated diverticulitis, history of colostomy for diverticular disease and sigmoidectomy, adhesions. PROCEDURE PERFORMED: 1. Laparoscopic-assisted takedown of end colostomy with primary anastomosis, EEA stapler #29. 2. Laparoscopic lysis of adhesions. 3. Proctosigmoidoscopy. 4. ARLENE placement. SURGEON: Darren Upton MD HEEL SHAVER: Rodney Desir MD. Dr. Rodney Desir was necessary due to the complexity of the surgical case. Dr. Desir assisted with retraction and camera control and Dr. Desir performed a proctosigmoidoscopy. ANESTHESIA: GETA. IV FLUIDS: See anesthesia sheet. ESTIMATED BLOOD LOSS: 50 mL DRAINS: None. COMPLICATIONS: None: WOUND CLASSIFICATION: Clean/contaminated. SPECIMENS: Segmental colon sent for pathology. FINDINGS: Intraabdominal adhesions. No leak on saline submersion test. Anastomosis noted to be intact. INDICATION: The patient is a 43-year-old male who presented with a history of a complex diverticular disease. The patient noted initially to have a perforated contained abscess from diverticular disease, status post IR drain x 2. The patient short interval followup requiring a sigmoidectomy for diverticular disease and end colostomy. This was performed in August. A decision was made for colostomy takedown. Discussed with the patient in detail, understood and agreed. DETAILS OF PROCEDURE: The patient was taken to the operating suite, placed in the lithotomy position. He was prepped and draped in the usual sterile fashion after induction of general endotracheal anesthesia. A brief timeout was done, stating correct patient, procedure and surgical site. We were all in agreement with this. Attention was directed to the superior umbilicus where a local anesthetic was injected. A small stab teresa incision was done with an 11 blade. The Visiport Optiview 5 mm entered the abdomen safely. I then insufflated to 15 mm of pneumoperitoneum. On cursory inspection, the colostomy was noted to be intact. There was intraabdominal adhesions along the lateral sidewall and some adhesions to the small bowel and adhesions went deep in the pelvis. Two other ports were placed in the midline, 1 infraumbilical and 1 suprapubic port. These were 5 mm. Mobilization and laparoscopic of adhesions were done with the Harmonic and EndoShears. This was done in order to obtain clear view and mobilized the colon to its attachments. Once the adhesions were mobilized, the pelvis was explored and further adhesions lysed to obtain entrance to the pelvis. The stump was noted with marking stitches that were previously placed, 3-0 Prolenes. These assisted in identifying the stump. Next, attention was directed to excision of the colostomy and mobilization from the skin. A 15 blade was used to cut the skin. Further dissection and electrocautery to core out and mobilize the colostomy. The colostomy was mobilized and placed back within the pelvis. Kyle GelPort was obtained to place within the colostomy incision. The abdomen was reinsufflated. The proximal colon was grasped and brought down to the pelvis and noted to sit in the pelvis without undue tension. At this point, the decision was then made for proctosigmoidoscopy, which Dr. Rodney Desir performed, with insufflation of the stump for identification of stump and a good landing zone. See Dr. Rodney Desir's dictation note for his portion of the procedure. The proximal colon, a small segment was removed with Bovie cautery and sent to pathology. This was done for obtaining clear healthy portion of proximal bowel. Sizers were used with initial 25 and then 29, and 29 was noted to fit snugly in place. Therefore, decision with the EEA stapler anvil to place in the proximal colon. This was pursestringed in place with a 3-0 Prolene. The colon was noted to be in correct orientation, no evidence of bleeding. Small little bleeders were ligated with 3-0 Vicryl. Proximal colon was dropped within the abdominal cavity and again, the GelPort Kyle was placed within the incision area. The EEA stapler was then placed in the rectum by Dr. Rodney Desir and anvil was connected to this, the firing of a 29 EEA stapler. The donuts were examined on the back table and noted to be completely intact. Further irrigation was used and clamping proximal to colon, noting that there was no evidence of bubbling and no evidence of leaking on saline submersion test. Next, irrigation done completely to the pelvis. Hemostasis was obtained. Again, colon was noted to be resting in place without undue tension. The omentum then was pulled down and placed within the pelvis as well. Pneumoperitoneum was removed. The Kyle device was also removed and the previous colostomy site was closed with 0 Vicryl to the peritoneum, followed by a double layer with 0 Prolene suture, initial [id number] followed by a running suture. Hemostasis was obtained, irrigation done in the subcutaneous tissues. [place] placed in the skin. ARLENE dressing placed. [place] at all port sites as applied. The patient tolerated the procedure well. No intraoperative complications. All lap and instrument counts were correct at the end of the procedure. Dr. Rodney Desir was present and scrubbed the entirety of the surgical case. He assisted with camera control and retraction, and also with proctosigmoidoscopy. The patient was extubated and taken stable to PACU. MD INEZ Padron/rhys , 09:42 PM , 09:54 PM
[2018-11-08] MEDS: Sod Chloride 0.9% Inj 1,000 ML IV.CONT SCH ×5 (00:14→22:52)
[2018-11-08] MEDS: Morphine Inj 30 MG/30 ML PCA.VIAL PCA PRN ×2 (02:23→11:54)
--- NOTE | 2018-11-08 07:46 | P.PNGS ---
Subjective Patient reports: no new complaints, feels better, no flatus, no bowel movement Physical Exam Vital signs: Vital Signs 11/07/18 12:46 11/07/18 18:08 11/07/18 18:15 Temperature 99.7 F H 98.3 F Pulse Rate 98 H 96 H 92 H Respiratory Rate 20 18 11 L Blood Pressure 149/89 H 138/82 154/86 H Pulse Oximetry 95 96 92 L 11/07/18 18:30 11/07/18 18:45 11/07/18 20:00 Temperature 97.8 F 97.4 F L Pulse Rate 84 80 88 Respiratory Rate 16 17 20 Blood Pressure 136/87 149/97 H 146/90 H Pulse Oximetry 92 L 97 96 11/07/18 23:51 11/08/18 03:20 11/08/18 04:00 Temperature 98.4 F 97.3 F L Pulse Rate 106 H 97 H Respiratory Rate 20 18 20 Blood Pressure 131/83 117/77 Pulse Oximetry 95 94 L Intake & Output 11/07/18 11/08/18 11/08/18 18:59 06:59 18:59 Intake Total 2900 / 2900 2120 / 2120 Output Total 300 / 300 800 / 800 Balance 2600 / 2600 1320 / 1320 Weight 121.8 kg 121.7 kg Intake: IV 1100 / 1100 1400 / 1400 LR 1000 mL Inj 1,000 ML @ 30 1000 / 1000 mls/hr IV.CONT .Q24H [facility] Rx#: [id number] NS Inj 1,000 ML @ 100 mls/hr IV 1000 / 1000 .CONT .Q10H [facility] Rx#:[id number] Cleocin Inj 900 MG In NS Inj 400 / 400 100 ML @ 100 mls/hr IV.SIG Q8H [facility] Rx#:[id number] Ancef 2 GM Premix Inj 2 gm In 50 / 50 50 ml @ 0 mls/hr IV.SIG .STK- MED [facility] Rx#:[id number] Flagyl 500 MG Inj 100 ML @ 0 50 / 50 mls/hr IV.SIG .STK-MED ONE Rx#: [id number] Oral 720 / 720 Anesthesia Amount 1800 / 1800 Output: Urine 800 / 800 Estimated Blood Loss 50 / 50 Urine Amount (Catheter) 250 / 250 Indwelling Urethral Catheter 250 / 250 Other: Weight On Admission 121.8 kg - Routine Abdominal Exam Present: soft (incisional tenderness) - Urinary Catheter Management Indwelling Urethral Catheter Cath placed during this visit: yes Reason for continuing: Hourly intake/output Insertion date: 11/07/18 Insertion time: 14:30 Results - Labs 11/07/18 12:40 11/07/18 13:18 Laboratory Results - last 24 hr 11/07/18 11/07/18 11/07/18 12:40 12:40 13:18 WBC 9.5 RBC 5.16 Hgb 16.4 Hct 45.5 MCV 88.2 MCH 31.9 MCHC 36.1 H RDW 13.6 Plt Count 291 MPV 8.0 Prelim Diff (Auto) Slide review pending Neut % (Auto) 73.5 H Lymph % (Auto) 16.7 [place] % (Auto) 8.5 H Eos % (Auto) 0.8 Baso % (Auto) 0.5 Neut # (Auto) 7.0 Lymph # (Auto) 1.6 [place] # (Auto) 0.8 Eos # (Auto) 0.1 Baso # (Auto) 0.0 WBC Differential . Diff Scan Auto diff confirmed Differential Comment . 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
[2018-11-08] MEDS: Senna/Docusate Sodium 8.6/50 MG Tablet PO SCH ×2 (08:01→20:34)
[2018-11-08 09:47] LABS: Baso % (Auto) 0.4 % (0.0-2.0); Eos # (Auto) 0.1 th/mm3 (0.0-0.4); Eos % (Auto) 0.5 % (0.0-4.0); Hematocrit 40.1 % (39.0-51.0); Hemoglobin 14.2 gm/dL (13.0-17.0); Lymph # (Auto) 1.6 th/mm3 (1.0-4.8); Lymph % (Auto) 12.5 % (9.0-44.0); Mean Corpuscular HGB Conc 35.5 % (32.0-36.0); Mean Corpuscular Hemoglobin 32.2 pg (27.0-34.0); Mean Corpuscular Volume 90.7 fL (80.0-100.0); Mean Platelet Volume 7.7 fL (7.0-11.0); Mono # (Auto) 1.5 th/mm3 (0.0-0.9); Mono % (Auto) 11.7 % (0.0-8.0); Neut # (Auto) 9.5 th/mm3 (1.8-7.7); Neut % (Auto) 74.9 % (16.0-70.0); Platelet Count 228 th/mm3 (150-450); Red Blood Count 4.42 mil/mm3 (4.50-5.90); Red Cell Distribution Width 13.7 % (11.6-17.2); White Blood Count 12.7 th/mm3 (4.0-11.0)
[2018-11-08 10:28] LABS: Calcium 8.1 mg/dL (8.5-10.1); Carbon Dioxide 27.9 meq/L (21.0-32.0); Potassium 3.4 meq/L (3.5-5.1)
[2018-11-09] MEDS: Morphine Inj 30 MG/30 ML PCA.VIAL PCA PRN (00:09)
[2018-11-09] MEDS: Senna/Docusate Sodium 8.6/50 MG Tablet PO SCH ×2 (09:27→20:37)
[2018-11-09] MEDS: Sod Chloride 0.9% Inj 1,000 ML IV.CONT SCH ×2 (09:27→16:24)
[2018-11-09] MEDS ORDERED: Morphine Inj 4 MG/ML Vial IV.PUSH PRN (10:27)
--- NOTE | 2018-11-09 10:29 | P.PNGS ---
Subjective Patient reports: no new complaints, feels better, flatus, bowel movement Physical Exam Vital signs: Vital Signs 11/08/18 11:47 11/08/18 12:19 11/08/18 13:30 Temperature 99.7 F H 98.4 F Pulse Rate 99 H 85 Respiratory Rate 28 H 18 Blood Pressure 147/92 H Pulse Oximetry 11/08/18 15:39 11/08/18 20:00 11/08/18 20:39 Temperature 98.8 F 98.2 F Pulse Rate 88 108 H 96 H Respiratory Rate 24 18 Blood Pressure 159/90 H 134/79 Pulse Oximetry 95 96 11/09/18 00:00 11/09/18 08:00 Temperature 100 F H 98.2 F Pulse Rate 98 H 94 H Respiratory Rate 17 20 Blood Pressure 154/82 H 149/86 H Pulse Oximetry 94 L 94 L Intake & Output 11/08/18 11/09/18 11/09/18 18:59 06:59 18:59 Intake Total 2606 / 2606 2200 / 2200 Output Total 800 / 800 3100 / 3100 Balance 1806 / 1806 -900 / -900 Weight 121.7 kg 128.5 kg Intake: IV 1106 / 1106 1000 / 1000 NS Inj 1,000 ML @ 100 mls/hr IV 1000 / 1000 1000 / 1000 .CONT .Q10H ANA Rx#:[id number] Cleocin Inj 900 MG In NS Inj 106 / 106 100 ML @ 100 mls/hr IV.SIG Q8H ANA Rx#:[id number] Oral 1500 / 1500 1200 / 1200 Output: Urine 800 / 800 3100 / 3100 Other: # Bowel Movements 1 - Routine Abdominal Exam Present: soft, tenderness (cr in place c/d/i) - Urinary Catheter Management Indwelling Urethral Catheter Cath placed during this visit: yes, but has since been removed by the nurse Reason for continuing: Decision to DC catheter Insertion date: 11/07/18 Insertion time: 14:30 Removal date: 11/08/18 Removal time: 08:10 Results - Labs 11/08/18 08:51 11/08/18 08:51 Laboratory Results - last 24 hr 11/08/18 08:51 Sodium 132 L Potassium 3.4 L Chloride 98 Carbon Dioxide 27.9 Anion Gap 6 BUN 9 Creatinine 0.98 Estimated GFR 84 L Random Glucose 87 Calcium 8.1 L D Assessment and Plan - Plan POD 2 Colostomy reversal, +bloody bm, +bm plan fulls advance as tolerated 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
[2018-11-10] MEDS: Sod Chloride 0.9% Inj 1,000 ML IV.CONT SCH (04:20)
[2018-11-10] MEDS: Senna/Docusate Sodium 8.6/50 MG Tablet PO SCH (08:18)
--- NOTE | 2018-11-10 10:48 | P.DS ---
Date of admission: 11/07/18 14:24 Primary care physician: No Primary Care Physician Attending physician on discharge: Darren Upton Anticipated date of discharge: 11/15/18 Brief History from admission: 43 year old male s/p colostomy take down DS: Medications - Discharge Medications Prescriptions: oxycodone-acetaminophen [Percocet] 1 tab PO Q4H PRN #30 tab PRN Reason: acute post op pain exception DS: Summary Hospital Course: This is a 43 year old male s/p colostomy takedown. The patient's pain was controlled using oral pain medications. His diet was advanced slowly. He has done well postoperatively. He will follow up in the office. - Time Spent with Patient Total time spent providing and/or coordinating discharge services: Less than 30 minutes - Quality: VTE Deep Vein Thrombosis/Pulmonary Embolism Present on Admission: No Exam Vital signs: Vital Signs 11/09/18 12:00 11/09/18 16:00 11/09/18 20:00 Temperature 98.4 F 97.6 F 97.9 F Pulse Rate 94 H 85 77 Respiratory Rate 20 20 18 Blood Pressure 142/80 H 125/76 146/92 H Pulse Oximetry 94 L 98 98 11/10/18 00:00 11/10/18 07:57 Temperature 97.8 F 97.4 F L Pulse Rate 84 73 Respiratory Rate 18 19 Blood Pressure 145/96 H 144/90 H Pulse Oximetry 97 99 Intake & Output 11/09/18 11/10/18 11/10/18 18:59 06:59 18:59 Intake Total 1180 / 1180 1000 / 1000 Balance 1180 / 1180 1000 / 1000 Weight 126.2 kg Intake: IV 700 / 700 1000 / 1000 NS Inj 1,000 ML @ 100 mls/hr IV 700 / 700 1000 / 1000 .CONT .Q10H ANA Rx#:[id number] Oral 480 / 480 Other: # Voids 4 2 # Bowel Movements 1 Narrative: Alert and awake Abd: soft; ARLENE in place; minimally tender to palpation Results Procedures completed during hospitalization: Colostomy takedown Completed studies during hospitalization: Pending at discharge 11/07/18 07:32 Surgical [PTH] Routine Discharge Plan - Discharge Disposition Patient Disposition: 01 Discharge Home - Discharge Condition Condition: Good - Discharge Order Discharge Orders: Discharge Order (Routine); Ordered 11/10/18 Ordered By: Mariah Kline - Discharge Details Anticipated Discharge Date: 11/10/18 Discharge Comment: rx on chart - Physicians Team Primary Care Provider: Primary Care Elin Brothers Attending Provider: Darren Upton - Rxs /Orders / Referrals /Forms Prescriptions: New oxycodone-acetaminophen [Percocet] 10-325 mg Tablet 1 tab PO Q4H PRN (Reason: acute post op pain exception ) Qty: 30 RF: 0 Continue omeprazole magnesium [Prilosec OTC] 20 mg Tablet,Delayed Release (Dr/Ec) 20 mg PO DAILY Referrals: Darren Upton MD [Physician] - See Instructions (Appt set for TuesdayNov 17 at 10:30AM) Primary Care Elin Brothesr [Primary Care Provider] - See Instructions ([facility] [phone] [place] [address] *[facility] offers same day APPT. Call. the morning you would like to be seen Office opens at 8:00am )
[2018-11-10 11:57] VITALS: PULSE 72; RESP 16; TEMP 98; O2SAT 97
[2018-11-10 14:36] VITALS: BP 118/70
== END 2018-11-10 14:46 | disposition home or self-care (01) ==
LOC: HSDC 11:26 → EDSTATUS 13:30 → HSDI 14:24 → N07 19:07
PROVIDERS: ADMIT Surgery; ATTEND Surgery

== ENCOUNTER 2018-11-10 21:45 | Observation (INO) ==
[2018-11-10] MEDS ORDERED: Sod Chloride 0.9% Inj 1,000 ML IV.SIG ONE (22:11)
[2018-11-10] MEDS ORDERED: Morphine Inj 4 MG/ML Vial IV.PUSH ONE ×2 (22:11→22:43)
[2018-11-10 22:31] LABS: Baso # (Auto) 0.1 th/mm3 (0.0-0.2); Baso % (Auto) 0.4 % (0.0-2.0); Eos # (Auto) 0.5 th/mm3 (0.0-0.4); Eos % (Auto) 4.1 % (0.0-4.0); Hematocrit 37.9 % (39.0-51.0); Hemoglobin 13.8 gm/dL (13.0-17.0); Lymph % (Auto) 15.7 % (9.0-44.0); Mean Corpuscular Hemoglobin 32.1 pg (27.0-34.0); Mean Corpuscular Volume 88.4 fL (80.0-100.0); Mean Platelet Volume 7.8 fL (7.0-11.0); Mono # (Auto) 1.1 th/mm3 (0.0-0.9); Mono % (Auto) 9.1 % (0.0-8.0); Neut # (Auto) 8.8 th/mm3 (1.8-7.7); Neut % (Auto) 70.7 % (16.0-70.0); Platelet Count 262 th/mm3 (150-450); Red Blood Count 4.29 mil/mm3 (4.50-5.90); Red Cell Distribution Width 13.2 % (11.6-17.2); White Blood Count 12.4 th/mm3 (4.0-11.0)
[2018-11-10 22:32] LABS: Mean Corpuscular HGB Conc 36.3 % (32.0-36.0)
--- NOTE | 2018-11-10 22:32 | ED ---
HPI General Chief Complaint: Abdominal Pain Stated Complaint: post surgery Tu/ dc today-pain Time Seen by Provider: 11/10/18 22:11 Source: patient Mode of arrival: ambulatory Limitations: no limitations History of Present Illness HPI narrative: 43-year-old male patient with history of colonic diverticular abscesses and bowel perforation, status post hemicolectomy, colostomy was reversed on Tuesday and he was doing fine in the hospital for 3 days, was released today from the hospital, presents back to the ER today because he started having a right-sided abdominal pain this afternoon. He states the pain is currently a 10 out of 10. He does not know of any exacerbating or relieving factors. He has not had any vomiting, diarrhea, fevers, or other symptoms. Modifying Factors: None Associated Signs & Symptoms: Increased right-sided abdominal pain Risk Factors: Colostomy reversal done by Dr. Upton 3 days ago, released from the hospital today Related Data Home Medications Medication Instructions Recorded Confirmed omeprazole magnesium [Prilosec OTC] 20 mg PO DAILY 11/06/18 11/10/18 Previous Rx's Medication Instructions Recorded oxycodone-acetaminophen [Percocet] 1 tab PO Q4H PRN #30 tab 11/10/18 Allergies Allergy/AdvReac Type Severity Reaction Status Date / Time No Known Allergies Allergy Verified 11/07/18 12:38 Review of Systems ROS: all other systems reviewed are negative [facility] Medical History Medical History Diverticulitis (Acute) GERD (gastroesophageal reflux disease) (Acute) Hx of hiatal hernia (Acute) Surgical History Surgical History H/O vasectomy (Acute) History of colon resection (Acute) Hx of tonsillectomy (Acute) Hx of wisdom tooth extraction (Acute) Family History Family History Other No pertinent family history Social History Social History Substance History: No History of Abuse Second Hand Smoke Exposure: No Smoking Status: Never smoker Tobacco Type: Cigarettes How Often Do You Have a Drink Containing Alcohol: Monthly or less Recent Travel in [facility] within the Last 8 Weeks: No Recent Out of Country Travel within the Last 8 Weeks: No Immunization History Tetanus Immunization: Unsure Exam Narrative Exam Narrative: GENERAL: Well-developed middle-age male patient currently in moderate distress. Awake and oriented x3. SKIN: Focused skin assessment cool and diaphoretic. HEAD: Atraumatic. Normocephalic. EYES: Pupils equal and round. No scleral icterus. No injection or drainage. ENT: No nasal bleeding or discharge. Mucous membranes pink and moist. NECK: Trachea midline. No JVD. CARDIOVASCULAR: Regular rate and rhythm. No murmur appreciated. RESPIRATORY: No accessory muscle use. Clear to auscultation. Breath sounds equal bilaterally. GASTROINTESTINAL: Abdomen soft, right-sided abdominal tenderness, nondistended. Hepatic and splenic margins not palpable. The incision site in the left abdomen looks clean, dry, intact, wound healing well without significant drainage or erythema. MUSCULOSKELETAL: No obvious deformities. No clubbing. No cyanosis. No edema. NEUROLOGICAL: Awake and alert. No obvious cranial nerve deficits. Motor grossly within normal limits. Normal speech. PSYCHIATRIC: Appropriate mood and affect; insight and judgment normal. Course Initial Documented Vital Signs Temperature 97.7 F 11/10/18 21:51 Pulse Rate 61 11/10/18 21:51 Respiratory Rate 21 11/10/18 21:51 Blood Pressure 186/102 H 11/10/18 21:51 Pulse Oximetry 97 11/10/18 21:51 Last Documented Vital Signs Temperature 97.7 F 11/10/18 21:51 Pulse Rate 79 11/11/18 04:35 Respiratory Rate 18 11/11/18 04:35 Blood Pressure 176/99 H 11/11/18 04:35 Pulse Oximetry 95 11/11/18 04:35 Medical Decision Making MDM Narrative Medical decision making narrative: CAT scan is showing air around the left lower quadrant surgical site. At this point, case is discussed with Dr. Upton and that the patient has required multiple doses of pain medications. Dr. Upton states he will keep the patient as an observation at this point. Medical Screen Exam Complete: Yes Emergency Medical Condition: Yes Differential Diagnosis Differential Diagnosis: Postop pain versus acute intra-abdominal processes Lab Data Lab results reviewed: Yes I reviewed the patient's lab results. Result diagrams: 11/10/18 22:15 11/10/18 22:15 Lab Results 11/10/18 11/10/18 11/10/18 Range/Units 22:15 22:15 22:15 WBC 12.4 H (4.0-11.0) th/mm3 RBC 4.29 L (4.50-5.90) mil/mm3 Hgb 13.8 (13.0-17.0) gm/dL Hct 37.9 L (39.0-51.0) % MCV 88.4 (80.0-100.0) fL MCH 32.1 (27.0-34.0) pg MCHC 36.3 H (32.0-36.0) % RDW 13.2 (11.6-17.2) % Plt Count 262 (150-450) th/mm3 MPV 7.8 (7.0-11.0) fL Neut % (Auto) 70.7 H (16.0-70.0) % Lymph % (Auto) 15.7 (9.0-44.0) % Bryan % (Auto) 9.1 H (0.0-8.0) % Eos % (Auto) 4.1 H (0.0-4.0) % Baso % (Auto) 0.4 (0.0-2.0) % Neut # (Auto) 8.8 H (1.8-7.7) th/mm3 Lymph # (Auto) 2.0 (1.0-4.8) th/mm3 Bryan # (Auto) 1.1 H (0.0-0.9) th/mm3 Eos # (Auto) 0.5 H (0.0-0.4) th/mm3 Baso # (Auto) 0.1 (0.0-0.2) th/mm3 WBC Differential . Differential Comment Auto diff final Sodium 138 (136-145) meq/L Potassium 3.2 L (3.5-5.1) meq/L Chloride 102 (98-107) meq/L Carbon Dioxide 28.6 (21.0-32.0) meq/L Anion Gap 7 (5-15) meq/L BUN 4 L (7-18) mg/dL Creatinine 0.87 (0.60-1.30) mg/dL Estimated GFR Greater than 89 (>89) mL/min Random Glucose 131 H (74-106) mg/dL Lactic Acid 1.4 (0.4-2.0) mmol/L Calcium 9.1 (8.5-10.1) mg/dL Magnesium 2.0 (1.5-2.5) mg/dL Total Bilirubin 0.7 (0.2-1.0) mg/dL AST 14 L (15-37) U/L ALT 18 (12-78) U/L Alkaline Phosphatase 77 (45-117) U/L Total Protein 7.8 (6.4-8.2) g/dL Albumin 3.4 (3.4-5.0) g/dL Lipase 94 (73-393) U/L Urine Color (Yellw/Straw) Urine Clarity (Clear) Urine pH (5.0-8.5) Ur Specific [place] (1.002-1.035) Urine Protein (Neg-Trace) mg/dL Urine Glucose (UA) (Negative) mg/dL Urine Ketones (Negative) mg/dL Urine Occult Blood (Negative) Urine Nitrate (Negative) Urine Bilirubin (Negative) Urine Urobilinogen (Less than 2) mg/dL Ur Leukocyte Esterase (Negative) Urine RBC (0-3) /hpf Urine WBC (0-5) /hpf Ur Squamous Epith Cells (0-5) /hpf Urine Bacteria (None) /hpf Waxy Casts (None) /lpf Urine Mucus (Occasional) /lpf Micro UA Comment Ur Microscopic Review Urine Culture Comments 11/10/18 Range/Units 23:17 WBC (4.0-11.0) th/mm3 RBC (4.50-5.90) mil/mm3 Hgb (13.0-17.0) gm/dL Hct (39.0-51.0) % MCV (80.0-100.0) fL MCH (27.0-34.0) pg MCHC (32.0-36.0) % RDW (11.6-17.2) % Plt Count (150-450) th/mm3 MPV (7.0-11.0) fL Neut % (Auto) (16.0-70.0) % Lymph % (Auto) (9.0-44.0) % Bryan % (Auto) (0.0-8.0) % Eos % (Auto) (0.0-4.0) % Baso % (Auto) (0.0-2.0) % Neut # (Auto) (1.8-7.7) th/mm3 Lymph # (Auto) (1.0-4.8) th/mm3 Bryan # (Auto) (0.0-0.9) th/mm3 Eos # (Auto) (0.0-0.4) th/mm3 Baso # (Auto) (0.0-0.2) th/mm3 WBC Differential Differential Comment Sodium (136-145) meq/L Potassium (3.5-5.1) meq/L Chloride (98-107) meq/L Carbon Dioxide (21.0-32.0) meq/L Anion Gap (5-15) meq/L BUN (7-18) mg/dL Creatinine (0.60-1.30) mg/dL Estimated GFR (>89) mL/min Random Glucose (74-106) mg/dL Lactic Acid (0.4-2.0) mmol/L Calcium (8.5-10.1) mg/dL Magnesium (1.5-2.5) mg/dL Total Bilirubin (0.2-1.0) mg/dL AST (15-37) U/L ALT (12-78) U/L Alkaline Phosphatase (45-117) U/L Total Protein (6.4-8.2) g/dL Albumin (3.4-5.0) g/dL Lipase (73-393) U/L Urine Color Yellow (Yellw/Straw) Urine Clarity Hazy H (Clear) Urine pH 6.0 (5.0-8.5) Ur Specific [place] 1.014 (1.002-1.035) Urine Protein Negative (Neg-Trace) mg/dL Urine Glucose (UA) Negative (Negative) mg/dL Urine Ketones Negative (Negative) mg/dL Urine Occult Blood Negative (Negative) Urine Nitrate Negative (Negative) Urine Bilirubin Negative (Negative) Urine Urobilinogen Less than 2 (Less than 2) mg/dL Ur Leukocyte Esterase Negative (Negative) Urine RBC 1 (0-3) /hpf Urine WBC 2 (0-5) /hpf Ur Squamous Epith Cells <1 (0-5) /hpf Urine Bacteria Rare H (None) /hpf Waxy Casts 3 (None) /lpf Urine Mucus Few H (Occasional) /lpf Micro UA Comment Culture not ind Ur Microscopic Review Not Reportable Urine Culture Comments Culture not ind Discharge Plan Discharge Disposition Patient Disposition: ED Admit(ED Internal Use Only) Discharge Condition Condition: Stable Discharge Order Discharge Orders: ED Use Only Admit Order (Routine); Ordered 11/11/18 Ordered By: Ralph Anand Discharge Details Anticipated Discharge Date: 11/11/18 Diagnosis: Postoperative abdominal pain Physicians Team ED Provider: Ralph Anand Primary Care Provider: Primary Care Elin Brothers Attending Provider: Darren Upton Discharge Interventions Interventions: Vital Signs Last Done: 11/11/18 03:17 ED Discharge Assessment Last Done: 11/11/18 04:53 Status ED Status: Admitted Observation Patient
[2018-11-10 23:22] LABS: Alanine Aminotransferase 18 U/L (12-78); Albumin 3.4 g/dL (3.4-5.0); Alkaline Phosphatase 77 U/L (45-117); Anion Gap 7 meq/L (5-15); Aspartate Aminotransferase 14 U/L (15-37); Blood Urea Nitrogen 4 mg/dL (7-18); Calcium 9.1 mg/dL (8.5-10.1); Carbon Dioxide 28.6 meq/L (21.0-32.0); Chloride 102 meq/L (98-107); Glomerular Filtration Rate Greater Than 89 mL/min (>89); Glucose,Random 131 mg/dL (74-106); Lipase 94 U/L (73-393); Potassium 3.2 meq/L (3.5-5.1); Sodium 138 meq/L (136-145); Total Protein 7.8 g/dL (6.4-8.2)
[2018-11-10 23:43] LABS: Bacteria,Urine Rare /hpf; Bilirubin,Urine Negative (Negative); Clarity,Urine Hazy (Clear); Color,Urine Yellow (Yellw/Straw); Glucose,Urine (UA) Negative (Negative); Leukocyte Esterase,Urine Negative (Negative); Mucus,Urine Few /lpf (Occasional); Nitrite,Urine Negative (Negative); Specific Gravity,Urine 1.014 (1.002-1.035); Squamous Epithelial Cell,Urine <1 /hpf (0-5)
--- NOTE | 2018-11-11 00:31 | CT ---
EXAM DATE: 11/11/2018 12:18 AM EST AGE/SEX: 43 years / Male INDICATIONS: Abdominal pain following reverse colostomy on Tuesday. CLINICAL DATA: This is the patient's initial encounter. Patient reports that signs and symptoms have been present for 4 - 6 days and indicates a pain score of 7/10. MEDICAL/SURGICAL HISTORY: Diverticulitis. Hiatal hernia. Bowel perforation. Colostomy. [place] n resection. Reverse colostomy. Vasectomy. ORAL CONTRAST: No oral contrast ingested. RADIATION DOSE: 20.72 CTDI (mGy) COMPARISON: [facility] [place], CT ABDOMEN & PELVIS W CONTRAST, 08/25/2018. . TECHNIQUE: Multiple contiguous axial images were obtained through the abdomen and pelvis following b olus infusion of 100 ml Omnipaque 350 (iohexol) nonionic water-soluble contrast as a single exam do se. No oral contrast ingested. Using automated exposure control and adjustment of the mA and/or kV a ccording to patient size, radiation dose was kept as low as reasonably achievable to obtain optimal d iagnostic quality images. DICOM format image data is available electronically for review and compari son. FINDINGS: Fatty prominence of the GE junction could be a lipoma versus hernia, unchanged since Octobe r Lower Lungs: The visualized lower lungs are clear. Liver: The liver has a homogeneous density without space-occupying lesion. There is no dilation of th e biliary tree. Gallbladder shows no gallbladder wall thickening or stone Spleen: Homogeneous density without enlargement. Pancreas: Unremarkable without mass or calcification. Kidneys: Normal in size and shape. No evidence of mass or hydronephrosis. Adrenal Glands: Unremarkable. Aorta: The aorta and proximal iliac vessels are grossly unremarkable without aneurysmal dilation. Bowel/Mesentery: There is extensive stranding around the sigmoid colon including the line of suture at the anastomosis. It may be an end to side anastomosis with some colon to the left of the anastomos is. I don't see any new abscess or drainable fluid collection but there is diffuse inflammation aroun d the sigmoid colon. Abdominal Wall: Underneath the ostomy clips there is a residUnderneath the ostomy clips there is a r esidual 5.7 cm fluid collection. There is extensive air across the anterior abdominal wall. in the re trocrural, para-aortic, or deep pelvic regions. Bladder: Contours are smooth. Reproductive Organs: NContours are smooth. calcifications seen. Vasquez abnormal masses or calcifications seen.ble without The inguinal region is unremarkable without ev idence of adenopathy.: 1. The patient has had an end to side anastomosis at the sigmoid colon with fairly impressive inflam matory stranding around the sigmoid colon. No abscess is identified. No significant fluid collection is seen. 2. Significant fibrillation the anterior abdominal wall related to the colostomy takedown as expecte d with extensive air in the subcutaneous fat and a small fluid collection along the ostomy site under neath the surgical nadya. Electronically signed by: Alcon Barclay MD Board Certified Radiologist 11/11/2018 12:30 AM EST
[2018-11-11] MEDS ORDERED: Bisacodyl 10 MG Supp RECTAL PRN (04:42)
[2018-11-11] MEDS ORDERED: Ketorolac Inj 30 MG/ML (IVP) Vial IV.PUSH PRN (04:42)
[2018-11-11] MEDS ORDERED: Post-op Orders (for Pharmacy) OTHER ONE (04:42)
[2018-11-11] MEDS ORDERED: Promethazine 25 MG Supp RECTAL PRN (04:42)
[2018-11-11] MEDS ORDERED: Morphine Sulfate Inj 2 MG/ML Vial IV.PUSH PRN (04:44)
[2018-11-11] MEDS ORDERED: Sod Chloride 0.9% Inj 1,000 ML IV.CONT SCH (04:45)
[2018-11-11] MEDS: Piperacil/Tazo 3.375 GM Premix 3.375 GM/50 ML PIGGYBACK IV.SIG SCH ×2 (05:34→13:18)
[2018-11-11] MEDS: Heparin - SQ 10,000 UNITS/ML Vial SQ SCH ×2 (05:34→13:19)
[2018-11-11] MEDS ORDERED: Senna/Docusate Sodium 8.6/50 MG Tablet PO SCH (09:00)
[2018-11-11] MEDS ORDERED: Morphine Inj 4 MG/ML Vial IV.PUSH PRN (13:16)
--- NOTE | 2018-11-12 14:22 | MH ---
cc: Darren Upton MD DATE OF ADMISSION: 11/11/2018 CHIEF COMPLAINT: Abdominal pain. HISTORY OF PRESENT ILLNESS: The patient is a 43-year-old male who presented with history of colostomy reversal 4 days ago due to a history of colostomy and perforation of diverticulitis. The patient presents after recent discharge due to severe abdominal pain, right-sided, 10/10, sharp, no radiation, no improvement. The patient decided to come to the emergency department for evaluation including CT scan showing some colitis without a definitive abscess collection. The patient with mild leukocytosis at 12.4. The patient denied any nausea, vomiting. Denied any fevers or chills or diarrhea or constipation. PAST MEDICAL HISTORY: Diverticulitis, reflux and hiatal hernia. PAST SURGICAL HISTORY: Vasectomy, sigmoidectomy laparoscopic robotic, history of interventional radiology drainage of diverticular abscess x 2, wisdom teeth extraction, tonsillectomy. SOCIAL HISTORY: Denies smoking, ETOH or IVDA. ALLERGIES: NO KNOWN DRUG ALLERGIES. MEDICATIONS: See EMR. FAMILY HISTORY: Denies diabetes or hypertension. REVIEW OF SYSTEMS: GENERAL: Denies fevers, chills. Complains of sweats. HEENT: Denies eye pain, ear pain. NECK: Denies swelling or pain. LUNGS: Denies cough or wheeze. HEART: Denies palpitation or chest pain. ABDOMEN: Complains of abdominal pain, right-sided. GENITOURINARY: Denies dysuria or hematuria. ENDOCRINE: Denies polyuria or polydipsia. INTEGUMENT: Denies any mass or lesions. PHYSICAL EXAMINATION: GENERAL: The patient in no acute distress. VITAL SIGNS: Temperature 97.7, pulse 61, respirations 21, blood pressure 186/102, saturation 97%. HEENT: Pupils equal, round, reactive. NECK: Supple. Trachea midline. LUNGS: Clear to auscultation, bilateral expansion. HEART: S1, S2. Regular. ABDOMEN: Soft, positive tenderness to palpation, right-sided. Incisional tenderness to previous colostomy site. Nondistended. No peritoneal signs. EXTREMITIES: Warm and well perfused. NEUROLOGIC: GCS is 15. Motor 5/5 in all extremities. PSYCHIATRIC: Appropriate mood, appropriate affect. LABORATORY AND DIAGNOSTIC DATA: WBC 12.4, hemoglobin 13.8, hematocrit 37.9, platelets 262. Sodium 138, potassium 3.2, chloride 102, BUN 4, creatinine 0.8, calcium 9.1, AST 14, ALT 18, lipase 94. CT reviewed by myself showing small air in bladder, colonic anastomosis, inflammatory stranding around proximal colon on the left, subcutaneous air. ASSESSMENT: The patient is a 43-year-old male who presents with abdominal pain, colitis, recent colostomy reversal. PLAN: After full workup, the patient was found to have the above-named issues. At this point, the patient does have evidence of mild colitis. No evidence of leak or perforation or abscess. We will admit the patient for observation, pain control, IV fluids, prophylactic antibiotic. The patient can have liquid diet. MD INEZ Padron/isidro , 01:04 PM , 01:12 PM
== END 2018-11-11 19:54 | disposition home or self-care (01) ==
LOC: NEPC 21:45 → NEDA 21:45 → NEPGCP 11-11 04:58
PROVIDERS: ADMIT Surgery; ATTEND Surgery
DX: K52.9 Noninfective gastroenteritis and colitis, unspecified; Z93.3 Colostomy status; G89.18 Other acute postprocedural pain; Z90.49 Acquired absence of other specified parts of digestive tract; R10.9 Unspecified abdominal pain; K57.92 Diverticulitis of intestine, part unspecified, without perforation or abscess without bleeding; K21.9 Gastro-esophageal reflux disease without esophagitis; F17.210 Nicotine dependence, cigarettes, uncomplicated